=== PATIENT | female | born 1945 | race African-American/Black ===

== ENCOUNTER 2019-01-04 10:28 | Inpatient (IN) | payer OTHER ==
[~2019-01-04] VITALS: Ht 160 cm; Wt 61.0 kg
[2019-01-04] MEDS ORDERED: CEFEPIME 2GM/50 ML (PMX) 50 ML IVPB STA (10:40)
[2019-01-04] MEDS ORDERED: VANCOMYCIN 1 GM (PMX) 250 ML IVPB ONE (11:00)
[2019-01-04] MEDS ORDERED: PRED20TA PO (11:34)
[2019-01-04] MEDS ORDERED: CITA20TA8 PO (11:34)
[2019-01-04] MEDS ORDERED: AMLO-147 PO (11:35)
[2019-01-04] MEDS ORDERED: TRAZ-111 PO (11:36)
[2019-01-04] MEDS ORDERED: ASPI-817 PO (11:36)
[2019-01-04] MEDS ORDERED: LOSA25TA12 PO (11:36)
[2019-01-04] MEDS ORDERED: RISP0.253 PO (11:37)
[2019-01-04] MEDS ORDERED: ATOR-2 PO (11:37)
[2019-01-04] MEDS ORDERED: CARV12.579 PO (11:38)
[2019-01-04] MEDS ORDERED: SENN-120 PO (11:39)
[2019-01-04] MEDS ORDERED: BISA-57 PO (11:40)
[2019-01-04] MEDS ORDERED: GUAI-637 PO (11:41)
[2019-01-04] MEDS ORDERED: HYDR-4011 PO (11:42)
[2019-01-04] MEDS ORDERED: IPRA3AMP29 INHALATION (11:45)
[2019-01-04] MEDS ORDERED: ONDA4TAB13 PO (11:46)
[2019-01-04] MEDS ORDERED: BACL10TA PO (11:46)
[2019-01-04] MEDS ORDERED: PANT40TA4 PO (11:47)
[2019-01-04] MEDS ORDERED: GABA300C16 PO (11:47)
[2019-01-04] MEDS ORDERED: FLUT12HF2 IH (11:49)
[2019-01-04] MEDS ORDERED: APIX2.5T PO (11:50)
[2019-01-04] MEDS ORDERED: ACET325T45 PO (11:52)
[2019-01-04] MEDS ORDERED: INSU100I12 SQ (11:56)
[2019-01-04] MEDS ORDERED: LIDOCAINE 1% (MPF) 5 ML VIAL SC ONE (12:00)
[2019-01-04] MEDS ORDERED: ACETAMINOPHEN 325 MG TAB PO PRN ×3 (13:30→15:00)
[2019-01-04] MEDS ORDERED: ONDANSETRON 4 MG INJ IV PRN ×2 (13:30→15:00)
[2019-01-04] MEDS ORDERED: BISACODYL (EC) 5 MG TAB PO PRN (14:00)
[2019-01-04] MEDS ORDERED: ONDANSETRON 4 MG TAB PO PRN (14:00)
[2019-01-04] MEDS ORDERED: NON-FORMULARY/PATIENT OWN MED (Salmeterol Xinaf-Fluticasone* (Advair HFA*) 2 INH) IH PRN (14:00)
[2019-01-04] MEDS ORDERED: ALBUTEROL/IPRATROPIUM (NEB) 3 ML AMP INH PRN (14:00)
[2019-01-04] MEDS ORDERED: LEVOFLOXACIN 750MG/D5W (PMX) 150 ML IVPB SCH (14:30)
--- NOTE | 2019-01-04 14:54 | HP ---
Date/Time of Note Date/Time of Note DATE: 01/04/19 TIME: 14:43 Assessment/Plan VTE Prophylaxis SCD applied (from Nsg): Yes Pharmacological prophylaxis: apixaban Lines/Catheters IV Catheter Type (from Nrsg): Saline Lock Assessment/Plan Hospital Course Assessment and plan 1. Multifocal pneumonia. Start antibiotic. O2 PRN. Will resume patient's breathing treatment regimen from home. Will adjust as needed. 2. Suspect history of A. fib with pacemaker. Continue to monitor. Placed back on Eliquis. Patient beta-love resumed. f/u echo 3. COPD. Will provide breathing treatments. Continue O2. Titrate down as tolerated. 4. Essential hypertension. Will resume antihypertensives. Will adjust as needed. 5. History of depression. Continue on Celexa 6. History of paranoid disorder. Continue on risperidone 7. Hyperlipidemia. Follow-up on CHD panel. Continue on atorvastatin. 8. Suspect history of CAD. Resume on statin and ASA. 9. suspect history of GERD. Continue Protonix. Discussed POC with Dr. Strong Result Diagram: 01/04/19 1101 01/04/19 1101 Results 24hrs Laboratory Tests Test 01/04/19 11:01 01/04/19 11:06 01/04/19 12:35 White Blood Count 6.9 Red Blood Count 3.29 L Hemoglobin 10.0 L Hematocrit 32.6 L Mean Corpuscular Volume 99.1 Mean Corpuscular Hemoglobin 30.4 Mean Corpuscular Hemoglobin Concent 30.7 L Red Cell Distribution Width 16.8 H Platelet Count 152 Mean Platelet Volume 10.9 H Immature Granulocytes % 0.300 Neutrophils % 74.6 Lymphocytes % 7.9 L Monocytes % 13.9 H Eosinophils % 2.9 Basophils % 0.4 Nucleated Red Blood Cells % 0.0 Immature Granulocytes # 0.020 Neutrophils # 5.1 Lymphocytes # 0.5 L Monocytes # 1.0 H Eosinophils # 0.2 Basophils # 0.0 Nucleated Red Blood Cells # 0.0 Prothrombin Time 13.7 Prothrombin Time Ratio 1.1 INR International Normalized Ratio 1.04 Activated Partial Thromboplast Time 27.4 Sodium Level 136 Potassium Level 5.1 Chloride Level 101 Carbon Dioxide Level 31 Anion Gap 4 L Blood Urea Nitrogen 23 H Creatinine 0.96 Est Glomerular Filtrat Rate mL/min Glucose Level 97 Calcium Level 9.0 Total Bilirubin 0.6 Direct Bilirubin 0.00 Indirect Bilirubin 0.6 Aspartate Amino Transf (AST/SGOT) 33 Alanine Aminotransferase (ALT/SGPT) 36 Alkaline Phosphatase 63 Troponin I 0.059 Total Protein 6.0 L Albumin 3.4 Globulin 2.60 Albumin/Globulin Ratio 1.30 POC Venous Lactate 0.7 Urine Color YELLOW Urine Clarity HAZY Urine pH 7 Urine Specific [place] 1.005 Urine Ketones NEGATIVE Urine Nitrite NEGATIVE Urine Bilirubin NEGATIVE Urine Urobilinogen NEGATIVE Urine Leukocyte Esterase NEGATIVE Urine Squamous Epithelial Cells RARE Urine Hemoglobin NEGATIVE Urine Glucose NEGATIVE Urine Total Protein TRACE HPI/ROS Admit Date/Time Admit Date/Time Hx of Present Illness This is a 73-year-old female with reported history of COPD, CKD, A. fib, pacemaker, TIA, depression, paranoid personality disorder, cigarette smoking history, hypertension, hyperlipidemia, who came to [facility] from [facility] due to insurance issues for multifocal pneumonia. Patient states she resides at a longterm facility and started to experience shortness of breath with associated cough for 3 days duration. She is not aware she was started on any antibiotics prior to hospital admission. She denies any chest pain or dysuria or any other associated symptoms besides reported cough and shortness of breath. She was brought to the hospital to the aformentiond issues. She was noted with a white count of 6.9. And she was afebrile. Chest imaging was done that showed patchy multifocal right greater than left infiltrates concerning for multifocal pneumonia. There is also seen some mild interstitial edema suggestive of cardiopulmonary congestion with a small left pleural effusion. Currently she denies any pain. She is alert somewhat forgetful. No other specific complaints at this time. We will evaluate her for the aformentiond issues. ROS 12 point review of systems obtained and entirely negative except mentioned in t he history of present illness PMH/Family/Social Past Medical History Medical/surgical history 1. COPD 2. CKD 3. A. fib with pacemaker 4. Suspect history of TIA 5. History of depression 6. Paranoid personality disorder 7. Hypertension 8. Hyperlipidemia 9. Self-reported history of stents in the legs 10. Hysterectomy Medications Current Medications Acetaminophen (Tylenol Tab) 650 mg Q6H PRN PO MILD PAIN LEVEL 1-3; Start 01/04/19 at 14:00 Amlodipine Besylate (Norvasc) 10 mg DAILY PO ; Start 01/05/19 at 09:00 Aspirin (Halfprin) 81 mg DAILY PO ; Start 01/05/19 at 09:00 Atorvastatin Calcium (Lipitor) 80 mg QHS PO ; Start 01/04/19 at 21:00 Baclofen (Lioresal) 10 mg TID PO ; Start 01/04/19 at 21:00 Bisacodyl (Dulcolax) 10 mg DAILY PRN PO CONSTIPATION; Start 01/04/19 at 14:00 Carvedilol (Coreg) 12.5 mg BID PO ; Start 01/04/19 at 21:00 Citalopram Hydrobromide (Celexa) 20 mg DAILY PO ; Start 01/05/19 at 09:00 Gabapentin (Neurontin) 300 mg TID PO ; Start 01/04/19 at 21:00 Albuterol/ Ipratropium (Duoneb) 3 ml Q6H RESP THERAPY PRN INH COPD/COUPH/SOB; Start 01/04/19 at 14:00 Losartan Potassium (Cozaar) 25 mg DAILY PO ; Start 01/05/19 at 09:00 Ondansetron HCl (Zofran Tab) 4 mg Q8H PRN PO NAUSEA AND/OR VOMITING; Start 01/04/19 at 14:00 Pantoprazole (Protonix Tab) 40 mg AC BREAKFAST PO ; Start 01/05/19 at 07:00 Senna (Senokot) 2 tab QPM PO ; Start 01/04/19 at 21:00 Trazodone HCl (Desyrel) 50 mg QHS PO ; Start 01/04/19 at 21:00 Miscellaneous Information 2 inh BID PRN IH COPD; Start 01/04/19 at 14:00; Status UNV Levofloxacin/ Dextrose 150 ml @ 100 mls/hr Q48H IVPB ; Start 01/04/19 at 14:30 Coded Allergies: No Known Allergy (Unverified , 01/04/19) Family History Significant Family History: other (Patient denies any history at this time) Social History Alcohol Use: none Smoking Status: Former smoker Drug Use: none Exam/Review of Systems Vital Signs Vitals Vital Signs Date Temp Pulse Resp B/P (MAP) Pulse Ox O2 O2 Flow FiO2 Time Delivery Rate 01/04/19 Nasal 2 11:10 Cannula 01/04/19 98.9 60 20 148/80 97 10:40 (102) Exam Constitutional: alert Psych: nl mood/affect Head: normocephalic Eyes: nl conjunctiva Neck: supple, non-tender Respiratory: congested cough Cardiovascular: other (pacemaker in place, regular rate ) Gastrointestinal: soft, non-tender Neurological: nl speech Skin: other (decubitus ulcer sacral area ) DAVID CHADWICK NP Jan 04, 2019 14:53
--- NOTE | 2019-01-04 14:56 | ERD ---
ER Documentation Chief Complaint Chief Complaint SOB SINCE LAST NIGHT. HX COPD AND CHF HPI Patient is a 73-year-old female with coronary disease, COPD, and hypertension who presents with shortness of breath. The patient was brought in by ambulance. She says "I cannot breathe". Symptoms started 3 days ago. She has fevers and cough which are worsening. She has previously been on antibiotics and was told "I have pneumonia". She came from a facility. Her primary doctor is Dr. Jacky Rushing. ROS All systems reviewed and are negative except as per history of present illness. Medications Home Meds Reported Medications Insulin Lispro (Humalog Kwikpen U-100) 100 Unit/1 Ml Insuln.pen, 0 SQ SLIDING SCALE, EA GIVE 5-10 MIN AC MEALS: IF BS 151-200=3 UNITS,201-250=6 UNITS, 251-300=8 UNITS,301-350=11 UNITS,351-399=13 UNITS-IF EQUAL OR GREATER THAN 400=15 UNITS: NOTIFY MD IF BELOW 60 OR ABOVE 400. 01/04/19 Acetaminophen* (Acetaminophen*) 325 Mg Tablet, 650 MG PO Q6H PRN for MILD PAIN LEVEL 1-3, #30 TAB AND FOR TEMP>101F 01/04/19 Apixaban* (Eliquis*) 2.5 Mg Tablet, 1.25 MG PO BID, TAB 01/04/19 Salmeterol Xinaf-Fluticasone* (Advair HFA*) 115/21 Aerosol Inhaler, 2 INH IH BID PRN for COPD, #1 INHALER 01/04/19 Pantoprazole* (Pantoprazole*) 40 Mg Tablet.dr, 40 MG PO AC BREAKFAST, TAB 01/04/19 Gabapentin* (Gabapentin*) 300 Mg Capsule, 300 MG PO TID, #90 CAP 01/04/19 Baclofen* (Baclofen*) 10 Mg Tablet, 10 MG PO TID, TAB 01/04/19 Ondansetron Hcl* (Zofran*) 4 Mg Tab, 4 MG PO Q8H PRN for NAUSEA AND OR VOMITING, TAB 01/04/19 Ipratropium-Albuterol (Ipratropium-Albuterol) 0.5-3 Mg/3 Ml Ampul.neb, 3 ML INHALATION Q6 PRN for COPD, #30 VIAL OR Q4H NEEDED 01/04/19 Hydrocodone/Acetaminophen ([place] 5-325 Tablet) 1 Each Tablet, 1 EACH PO Q4H PRN for MODERATE PAIN LEVEL 4-6, TAB 01/04/19 Guaifenesin* (Robitussin*) 100 Mg/5 Ml Syrup, 10 ML PO Q4H PRN for COUGH, ML 01/04/19 Bisacodyl* (Dulcolax*) 5 Mg Tablet.dr, 10 MG PO DAILY PRN for CONSTIPATION, TAB 01/04/19 Sennosides* (Senna Lax*) 8.6 Mg Tablet, 2 TAB PO QPM, TAB 01/04/19 Carvedilol* (Carvedilol*) 12.5 Mg Tablet, 12.5 MG PO BID, #60 TAB 01/04/19 Atorvastatin* (Atorvastatin*) 80 Mg Tablet, 80 MG PO QHS, #30 TAB 01/04/19 Risperidone* (Risperidone*) 0.25 Mg Tablet, 0.25 MG PO Q9PM, TAB 01/04/19 Trazodone Hcl* (Trazodone Hcl*) 50 Mg Tablet, 50 MG PO QHS, #30 TAB 01/04/19 Aspirin* (Aspirin* EC) 81 Mg Tablet.dr, 81 MG PO DAILY, TAB 01/04/19 Losartan Potassium* (Losartan Potassium*) 25 Mg Tablet, 25 MG PO DAILY, TAB HOLD FOR SBP LESS THAN 110 01/04/19 Amlodipine Besylate* (Amlodipine Besylate*) 10 Mg Tablet, 10 MG PO DAILY, #30 T AB 01/04/19 Citalopram Hydrobromide* (Citalopram Hydrobromide*) 20 Mg Tablet, 20 MG PO DAILY, #30 TAB 01/04/19 Prednisone* (Prednisone*) 20 Mg Tab, 20 MG PO DAILY, TAB 01/04/19 Allergies Allergies: Coded Allergies: No Known Allergy (Unverified , 01/04/19) PMhx/Soc History of Surgery: No Anesthesia Reaction: No Hx Neurological Disorder: Yes (CVA) Hx Respiratory Disorders: Yes (COPD) Hx Cardiac Disorders: Yes (PM, HTN, A FIB, CAD) Hx Psychiatric Problems: Yes (PARANOID PERSONALITY DISORDER) Hx Alcohol Use: No Hx Substance Use: No Hx Tobacco Use: Yes Smoking Status: Former smoker FmHx Family History: diabetes Physical Exam Vitals Vital Signs Date Temp Pulse Resp B/P (MAP) Pulse Ox O2 O2 Flow FiO2 Time Delivery Rate 01/04/19 Nasal 2 11:10 Cannula 01/04/19 Nasal 2.0 11:10 Cannula 01/04/19 98.9 60 20 148/80 97 Nasal 10:40 (102) Cannula 01/04/19 98.6 60 26 128/76 97 10:36 (93) Physical Exam Const: Shortness of breath and is unable to complete full sentences Head: Atraumatic Eyes: Normal Conjunctiva ENT: Normal External Ears, Nose and Mouth. Neck: Full range of motion. No meningismus. Resp: Decreased breath sounds bilaterally Cardio: Regular rate and rhythm, no murmurs Abd: Soft, non tender, non distended. Normal bowel sounds Skin: No petechiae or rashes Back: No midline or flank tenderness Ext: No cyanosis, or edema Neur: Awake and alert Psych: Normal Mood and Affect Result Diagram: 01/04/19 1101 01/04/19 1101 Results 24 hrs Laboratory Tests Test 01/04/19 11:01 01/04/19 11:06 01/04/19 12:35 White Blood Count 6.9 10^3/ul Red Blood Count 3.29 10^6/ul Hemoglobin 10.0 g/dl Hematocrit 32.6 % Mean Corpuscular Volume 99.1 fl Mean Corpuscular Hemoglobin 30.4 pg Mean Corpuscular 30.7 g/dl Hemoglobin Concent Red Cell Distribution Width 16.8 % Platelet Count 152 10^3/UL Mean Platelet Volume 10.9 fl Immature Granulocytes % 0.300 % Neutrophils % 74.6 % Lymphocytes % 7.9 % Monocytes % 13.9 % Eosinophils % 2.9 % Basophils % 0.4 % Nucleated Red Blood Cells % 0.0 /100WBC Immature Granulocytes # 0.020 10^3/ul Neutrophils # 5.1 10^3/ul Lymphocytes # 0.5 10^3/ul Monocytes # 1.0 10^3/ul Eosinophils # 0.2 10^3/ul Basophils # 0.0 10^3/ul Nucleated Red Blood Cells # 0.0 10^3/ul Prothrombin Time 13.7 Sec Prothrombin Time Ratio 1.1 INR International 1.04 Normalized Ratio Activated Partial Thromboplast 27.4 Sec Time Sodium Level 136 mmol/L Potassium Level 5.1 mmol/L Chloride Level 101 mmol/L Carbon Dioxide Level 31 mmol/L Anion Gap 4 Blood Urea Nitrogen 23 mg/dl Creatinine 0.96 mg/dl Est Glomerular Filtrat mL/min Rate mL/min Glucose Level 97 mg/dl Calcium Level 9.0 mg/dl Total Bilirubin 0.6 mg/dl Direct Bilirubin 0.00 mg/dl Indirect Bilirubin 0.6 mg/dl Aspartate Amino Transf (AST/SGOT) 33 IU/L Alanine 36 IU/L Aminotransferase (ALT/SGPT) Alkaline Phosphatase 63 IU/L Troponin I 0.059 ng/ml Total Protein 6.0 g/dl Albumin 3.4 g/dl Globulin 2.60 g/dl Albumin/Globulin Ratio 1.30 POC Venous Lactate 0.7 mmol/L Urine Color YELLOW Urine Clarity HAZY Urine pH 7 Urine Specific [place] 1.005 Urine Ketones NEGATIVE mg/dL Urine Nitrite NEGATIVE mg/dL Urine Bilirubin NEGATIVE mg/dL Urine Urobilinogen NEGATIVE mg/dL Urine Leukocyte Esterase NEGATIVE Samuel/ul Urine Squamous Epithelial Cells RARE /HPF Urine Hemoglobin NEGATIVE mg/dL Urine Glucose NEGATIVE mg/dL Urine Total Protein TRACE mg/dl Current Medications Medications Dose Sig/Fritz Start Time Status Last (Trade) Ordered Route PRN Stop Time Admin Dose Reason Admin Cefepime HCl 50 ml @ ONCE STAT 01/04/19 DC 01/04/19 100 mls/hr IVPB 10:40 01/04/19 12:42 11:09 Vancomycin 250 ml @ ONCE ONCE 01/04/19 DC 01/04/19 HCl 125 mls/hr IVPB 11:00 01/04/19 13:14 12:59 Lidocaine 5 ml ONCE ONCE 01/04/19 DC (Xylocaine SC 12:00 01/04/19 1% (Mpf)) 12:01 Ondansetron 4 mg BRIDGE ORDER 01/04/19 DC HCl (Zofran PRN IV 13:30 01/04/19 Inj) NAUSEA/VOMITI 13:58 NG 650 mg ER BRIDGE 01/04/19 DC Acetaminophen PRN PO 13:30 01/04/19 (Tylenol .MILD PAIN 13:58 Tab) 1-3 OR TEMP 650 mg Q6H PRN 01/04/19 Acetaminophen PO MILD PAIN 14:00 (Tylenol LEVEL 1-3 Tab) Amlodipine 10 mg DAILY PO 01/05/19 Besylate 09:00 (Norvasc) Aspirin 81 mg DAILY PO 01/05/19 (Halfprin) 09:00 80 mg QHS PO 01/04/19 Atorvastatin 21:00 Calcium (Lipitor) Baclofen 10 mg TID PO 01/04/19 (Lioresal) 21:00 Bisacodyl 10 mg DAILY PRN 01/04/19 (Dulcolax) PO 14:00 CONSTIPATION Carvedilol 12.5 mg BID PO 01/04/19 (Coreg) 21:00 Citalopram 20 mg DAILY PO 01/05/19 Hydrobromide 09:00 (Celexa) Gabapentin 300 mg TID PO 01/04/19 (Neurontin) 21:00 Albuterol/ 3 ml Q6H RESP 01/04/19 Ipratropium THERAPY PRN 14:00 (Duoneb) INH COPD/COUPH/SO B Losartan 25 mg DAILY PO 01/05/19 Potassium 09:00 (Cozaar) Ondansetron 4 mg Q8H PRN 01/04/19 HCl (Zofran PO NAUSEA 14:00 Tab) AND/OR VOMITING 40 mg AC 01/05/19 Pantoprazole BREAKFAST 07:00 (Protonix PO Tab) Senna 2 tab QPM PO 01/04/19 (Senokot) 21:00 Trazodone 50 mg QHS PO 01/04/19 HCl 21:00 (Desyrel) 2 inh BID PRN 01/04/19 UNV Miscellaneous IH COPD 14:00 Information 150 ml @ DAILY IVPB 01/05/19 UNV Levofloxacin/ 100 mls/hr 09:00 Dextrose 150 ml @ Q48H IVPB 01/04/19 Levofloxacin/ 100 mls/hr 14:30 Dextrose Apixaban 2.5 mg BID PO 01/04/19 UNV (Eliquis) 21:00 Procedures/MDM EKG read by me: Rate/Rhythm: Paced rhythm at a normal rate Intervals: Normal Impression: Paced rhythm with negative Sgarbossa criteria X-ray shows multifocal pneumonia per radiology. Patient is a 73-year-old female with multiple comorbidities who presents with multifocal pneumonia. The patient had full work-up performed. I doubt sepsis at this time. The patient was given broad-spectrum antibiotics. PICC line was ordered for IV access as the patient had difficult to obtain IV access. The patient will be admitted to the care of the panel team to a medical surgical bed. I doubt acute coronary syndrome, pneumothorax, or pulmonary embolism. Departure Diagnosis: Primary Impression: PNA (pneumonia) Pneumonia type: due to unspecified organism Laterality: unspecified laterality Lung location: unspecified part of lung Qualified Codes: J18.9 - Pneumonia, unspecified organism Additional Impression: Shortness of breath Condition: Fair RACHEAL YANES MD Jan 04, 2019 14:56
[2019-01-04] MEDS ORDERED: NACL 0.9% 3 ML SYG IV SCH (15:00)
[2019-01-04] MEDS ORDERED: MAGNESIUM HYDROXIDE 30ML CUP PO PRN (15:00)
[2019-01-04] MEDS ORDERED: ACETAMINOPHEN 650 MG SUPP PR PRN (15:00)
[2019-01-04] MEDS ORDERED: DOCUSATE SODIUM 100 MG CAP PO PRN (15:00)
[2019-01-04] MEDS ORDERED: BISACODYL 10 MG SUPP PR PRN (15:00)
[2019-01-04] MEDS ORDERED: hydrALAzine 20 MG INJ IV ONE (16:00)
[2019-01-04 16:45] VITALS: BP 168/74; PULSE 72; RESP 16
[2019-01-04] MEDS: HYDROCODONE/APAP (5/325) TAB PO PRN (17:22)
[2019-01-04 17:31] VITALS: Ht 160 cm; Wt 61.0 kg
[2019-01-04] MEDS: ALBUTEROL/IPRATROPIUM (NEB) 3 ML AMP HHN PRN (17:39)
[2019-01-04] MEDS: LEVOFLOXACIN 750MG/D5W (PMX) 150 ML IVPB SCH (18:37)
[2019-01-04] MEDS: morphine 2 MG INJ IV PRN (19:58)
[2019-01-04 20:00] VITALS: BP 108/82; PULSE 64; RESP 18
[2019-01-04] MEDS: BUDESONIDE (NEB) 0.5MG/2ML AMP INH SCH (20:39)
[2019-01-04] MEDS: ARFORMOTEROL TARTRATE 15MCG/2 ML AMP INH SCH (20:39)
[2019-01-04] MEDS: SENNA TAB PO SCH (21:00)
[2019-01-04] MEDS: traZODone 50 MG TAB PO SCH (21:29)
[2019-01-04] MEDS: ATORVASTATIN 80 MG TAB PO SCH (21:30)
[2019-01-04] MEDS: APIXABAN 5 MG TABLET PO SCH (21:30)
[2019-01-04] MEDS: BACLOFEN 10 MG TAB PO SCH (21:30)
[2019-01-04] MEDS: GABAPENTIN 300 MG CAP PO SCH (21:30)
[2019-01-04] MEDS ORDERED: DIPHENHYDRAMINE 25 MG CAP PO ONE (23:00)
[2019-01-05] VITALS (7 sets, daily range): BP systolic 117–172; BP diastolic 60–79; PULSE 56–71; RESP 18–20
[2019-01-05] MEDS ORDERED: GUAIFENESIN 20 MG/ML 5ML CUP PO PRN (00:30)
[2019-01-05] MEDS: ALBUTEROL/IPRATROPIUM (NEB) 3 ML AMP HHN PRN (01:33)
[2019-01-05] MEDS: PANTOPRAZOLE (EC) 40 MG TAB PO SCH (06:26)
[2019-01-05] MEDS: HYDROCODONE/APAP (5/325) TAB PO PRN ×2 (06:29→12:29)
[2019-01-05] MEDS: AMLODIPINE 10 MG TAB PO SCH (08:31)
[2019-01-05] MEDS: APIXABAN 5 MG TABLET PO SCH ×2 (08:32→21:43)
[2019-01-05] MEDS: GABAPENTIN 300 MG CAP PO SCH ×3 (08:32→21:47)
[2019-01-05] MEDS: CITALOPRAM 20 MG TAB PO SCH (08:33)
[2019-01-05] MEDS: BACLOFEN 10 MG TAB PO SCH ×3 (08:34→21:44)
[2019-01-05] MEDS: LOSARTAN 25 MG TAB PO SCH (08:34)
[2019-01-05] MEDS: ASPIRIN (EC) 81 MG TAB PO SCH (08:34)
[2019-01-05] MEDS: morphine 2 MG INJ IV PRN (08:56)
[2019-01-05] MEDS: ARFORMOTEROL TARTRATE 15MCG/2 ML AMP INH SCH ×2 (09:00→21:00)
[2019-01-05] MEDS ORDERED: LEVOFLOXACIN 750MG/D5W (PMX) 150 ML IVPB SCH (09:00)
[2019-01-05] MEDS: BUDESONIDE (NEB) 0.5MG/2ML AMP INH SCH ×2 (09:10→21:00)
[2019-01-05] MEDS ORDERED: SODIUM POLYSTYRENE 15 GM KIT (POWDER + SORBITOL) PO ONE (13:30)
--- NOTE | 2019-01-05 14:15 | RADRPT ---
Echocardiogram Report Patient Name: JEAN PIERRE DINEROPatient ID: [id number] : 1945 (73y 6m)Study Date: 01/05/2019 7:14:27 AM Gender: FAccession #: [id number] Tech: Peyton Wong [facility] Location: [id number] Ref.Physician: DAVID CHADWICK Height(Cm): BSA: Weight(Kg): Quality: AdequateOrder Physician: DAVID CHADWICK Account #: Procedures: Echocardiographic Report: Transthoracic echocardiogram with complete 2D, M-Mode, and doppler examination. Indications: Congestive Heart Failure. Measurements: 2D/M Mode Doppler Measurement Value Normal Range Measurement Value Normal Range LVIDd 2D 3.2 [ 3.8 - 5.2 ] cm AV Peak [place] 1.8 [ 100.0 - 170.0 ] cm/sec LVIDs 2D 1.4 [ 2.2 - 3.5 ] cm AV Peak PG 12.0 [ 2.0 - 9.0 ] mmHg LVPWd 2D 2.2 [ 0.6 - 0.9 ] cm LVOT Peak [place] 1.5 [ 70.0 - 110.0 ] cm/sec IVSd 2D 1.7 [ 0.6 - 0.9 ] cm LVOT Peak PG 9.0 [ 2.0 - 6.0 ] mmHg AoR Diam 2D 2.8 [ 2.3 - 3.1 ] cm MV E Peak [place] 1.0 [ 60.0 - 130.0 ] cm/sec EDV 2D 41.9 [ 46.0 - 106.0 ] ml MV A Peak [place] 1.3 [ 100.0 - 120.0 ] cm/sec ESV 2D 4.7 [ 14.0 - 42.0 ] ml MV E/A 0.7 [ 0.8 - 1.5 ] ratio EF 2D 88.8 [ 54.0 - 74.0 ] percent MV Decel Time 366 [ 104 - 258 ] msec LA Dimen 2D 3.8 [ 2.7 - 3.8 ] cm Lat E` [place] 0.0 [ 10.0 - 15.0 ] cm/sec Lateral E/E` 20.3 [ 1.0 - 2.0 ] ratio MV E/A 0.7 [ 0.8 - 1.5 ] ratio TR Peak [place] 4.3 [ 100.0 - 280.0 ] cm/sec TR Peak PG 74.0 mmHg RVSP 82.0 [ 10.0 - 36.0 ] mmHg RA Pressure 8.0 mmHg Findings: Left Ventricle: Hyperdynamic left ventricular systolic function. Severe concentric left ventricular hypertrophy. Reduced left ventricular cavity size. Ejection fraction is visually estimated at >65 %. Tissue Doppler/Mitral Doppler indices are consistent with impaired relaxation (Stage I diastolic dysfunction). Right Ventricle: Normal right ventricular size. Normal right ventricular systolic function. Linear artifact in right ventricle suggestive of catheter, pacer lead, or ICD lead. Left Atrium: The left atrium is normal in size. Right Atrium: The right atrium is normal in size. Mitral Valve: Moderate mitral leaflet calcification. Moderate mitral annular calcification. Trace mitral regurgitation. Aortic Valve: Normal appearance of the aortic valve. No significant aortic stenosis or insufficiency. Tricuspid Valve: Normal appearance of the tricuspid valve. The estimated Peak RVSP is 82 mmHg. There is mild to moderate tricuspid regurgitation. Pulmonic Valve: Normal pulmonic valve appearance. Pericardium: Small pericardial effusion. Aorta: Normal aortic root. IVC: Normal size and no respiratory collapse consistent with elevated right atrial pressure. Conclusions: Hyperdynamic left ventricular systolic function. Severe concentric left ventricular hypertrophy. Reduced left ventricular cavity size. Ejection fraction is visually estimated at 60 %. Tissue Doppler/Mitral Doppler indices are consistent with impaired relaxation (Stage I diastolic dysfunction). Moderate mitral leaflet calcification. Moderate mitral annular calcification. Trace mitral regurgitation. Normal appearance of the tricuspid valve. The estimated Peak RVSP is 82 mmHg. There is mild to moderate tricuspid regurgitation. Electronically Signed By: Romie Baeza 2019-01-05 14:14:31 PDT
[2019-01-05] MEDS: BALSAM PERU/CASTOR OIL 60 GM TUBE TOP SCH (14:58)
--- NOTE | 2019-01-05 15:34 | PN ---
Date/Time of Note Date/Time of Note DATE: 01/05/19 TIME: 15:30 Assessment/Plan VTE Prophylaxis Risk score (from Ns)>0 risk: 5 SCD applied (from Ns): Yes Pharmacological prophylaxis: apixaban Lines/Catheters IV Catheter Type (from Nrs): Saline Lock Urinary Cath still in place: No Assessment/Plan Hospital Course Assessment and plan 1. Multifocal pneumonia. - continue antibiotic. - O2 PRN. - continue patient's breathing treatment regimen from home. Will adjust as needed. 2. Suspect history of A. fib with pacemaker. - Continue to monitor. - continue on Eliquis. - Patient beta-love resumed. f/u echo 3. COPD. - provide breathing treatments. - Continue O2. Titrate down as tolerated. 4. Essential hypertension. - continue antihypertensives. Will adjust as needed. 5. History of depression. - Continue on Celexa 6. History of paranoid disorder. - Continue on risperidone 7. Hyperlipidemia. - Continue on atorvastatin. 8. Suspect history of CAD. - continue on statin and ASA. 9. suspect history of GERD. - Continue Protonix. 10. Hyperkalemia - kayexalate prn Dispo/Plan: monitor electrolytes. continue with PT. check CXR in AM. continue inhouse monitoring Discussed POC with Dr. Howard Result Diagram: 01/04/19 1101 01/05/19 0541 Results 24hrs Laboratory Tests Test 01/04/19 17:33 01/04/19 21:42 01/05/19 05:41 Lactic Acid Level 1.0 0.9 Sodium Level 137 Potassium Level 5.6 H Chloride Level 106 Carbon Dioxide Level 26 Anion Gap 5 Blood Urea Nitrogen 29 H Creatinine 0.89 Est Glomerular Filtrat Rate mL/min Glucose Level 84 Hemoglobin A1c 5.7 Calcium Level 8.8 Phosphorus Level 4.6 Magnesium Level 2.3 Total Bilirubin 0.5 Direct Bilirubin 0.00 Indirect Bilirubin 0.5 Aspartate Amino Transf (AST/SGOT) 36 Alanine Aminotransferase (ALT/SGPT) 33 Alkaline Phosphatase 57 Total Protein 5.4 L Albumin 3.0 L Globulin 2.40 Albumin/Globulin Ratio 1.25 Triglycerides Level 55 Cholesterol Level 143 LDL Cholesterol, Calculated 72 HDL Cholesterol 60 Cholesterol/HDL Ratio 2.3 Thyroid Stimulating Hormone (TSH) 0.926 Free Thyroxine Index 2.46 Thyroxine (T4) 6.4 Triiodothyronine (T3) Uptake 38.4 Subjective 24 Hr Interval Summary Free Text/Dictation reports better breathing today Exam/Review of Systems Exam Vitals Vital Signs Date Temp Pulse Resp B/P (MAP) Pulse Ox O2 O2 Flow FiO2 Time Delivery Rate 01/05/19 124/67 10:13 (86) 01/05/19 84 20 92 Nasal 2.0 09:18 Cannula 01/05/19 97.9 07:44 Intake and Output 01/04/19 01/04/19 01/05/19 1515:00 23:00 07:00 IntakeIntake Total 450 ml BalanceBalance 450 ml Exam Constitutional: alert Psych: nl mood/affect Head: normocephalic Eyes: nl conjunctiva Neck: supple, non-tender Respiratory: congested cough Cardiovascular: other (pacemaker in place, regular rate ) Gastrointestinal: soft, non-tender Neurological: nl speech Skin: other (decubitus ulcer sacral area ) Results Results 24hrs Laboratory Tests Test 01/04/19 17:33 01/04/19 21:42 01/05/19 05:41 Lactic Acid Level 1.0 0.9 Sodium Level 137 Potassium Level 5.6 H Chloride Level 106 Carbon Dioxide Level 26 Anion Gap 5 Blood Urea Nitrogen 29 H Creatinine 0.89 Est Glomerular Filtrat Rate mL/min Glucose Level 84 Hemoglobin A1c 5.7 Calcium Level 8.8 Phosphorus Level 4.6 Magnesium Level 2.3 Total Bilirubin 0.5 Direct Bilirubin 0.00 Indirect Bilirubin 0.5 Aspartate Amino Transf (AST/SGOT) 36 Alanine Aminotransferase (ALT/SGPT) 33 Alkaline Phosphatase 57 Total Protein 5.4 L Albumin 3.0 L Globulin 2.40 Albumin/Globulin Ratio 1.25 Triglycerides Level 55 Cholesterol Level 143 LDL Cholesterol, Calculated 72 HDL Cholesterol 60 Cholesterol/HDL Ratio 2.3 Thyroid Stimulating Hormone (TSH) 0.926 Free Thyroxine Index 2.46 Thyroxine (T4) 6.4 Triiodothyronine (T3) Uptake 38.4 Medications Medication Current Medications Acetaminophen (Tylenol Tab) 650 mg Q6H PRN PO MILD PAIN LEVEL 1-3; Start 01/04/19 at 14:00 Amlodipine Besylate (Norvasc) 10 mg DAILY PO Last administered on 01/05/19at 08:31; Admin Dose 10 MG; Start 01/05/19 at 09:00 Aspirin (Halfprin) 81 mg DAILY PO Last administered on 01/05/19 08:34; Admin Dose 81 MG; Start 01/05/19 at 09:00 Atorvastatin Calcium (Lipitor) 80 mg QHS PO Last administered on 01/04/19 21:30; Admin Dose 80 MG; Start 01/04/19 at 21:00 Baclofen (Lioresal) 10 mg TID PO Last administered on 01/05/19 12:18; Admin Dose 10 MG; Start 01/04/19 at 21:00 Bisacodyl (Dulcolax) 10 mg DAILY PRN PO CONSTIPATION; Start 01/04/19 at 14:00 Carvedilol (Coreg) 12.5 mg BID PO Last administered on 01/05/19 08:33; Admin Dose 12.5 MG; Start 01/04/19 at 21:00 Citalopram Hydrobromide (Celexa) 20 mg DAILY PO Last administered on 01/05/19 08:33; Admin Dose 20 MG; Start 01/05/19 at 09:00 Gabapentin (Neurontin) 300 mg TID PO Last administered on 01/05/19 12:19; Admin Dose 300 MG; Start 01/04/19 at 21:00 Albuterol/ Ipratropium (Duoneb) 3 ml Q6H RESP THERAPY PRN INH COPD/COUPH/SOB; Start 01/04/19 at 14:00 Losartan Potassium (Cozaar) 25 mg DAILY PO Last administered on 01/05/19 08:34; Admin Dose 25 MG; Start 01/05/19 at 09:00 Ondansetron HCl (Zofran Tab) 4 mg Q8H PRN PO NAUSEA AND/OR VOMITING Last administered on 01/04/19 21:29; Admin Dose 4 MG; Start 01/04/19 at 14:00 Pantoprazole (Protonix Tab) 40 mg AC BREAKFAST PO Last administered on 01/05/19 06:26; Admin Dose 40 MG; Start 01/05/19 at 07:00 Senna (Senokot) 2 tab QPM PO ; Start 01/04/19 at 21:00 Trazodone HCl (Desyrel) 50 mg QHS PO Last administered on 01/04/19 21:29; Admin Dose 50 MG; Start 01/04/19 at 21:00 Apixaban (Eliquis) 2.5 mg BID PO Last administered on 01/05/19at 08:32; Admin Dose 2.5 MG; Start 01/04/19 at 21:00 Albuterol/ Ipratropium (Duoneb) 3 ml Q6H RESP THERAPY PRN HHN SHORTNESS OF BR EATH Last administered on 01/05/19at 01:33; Admin Dose 3 ML; Start 01/04/19 at 15:00 IV Flush (NS 3 ml) 3 ml PER PROTOCOL IV ; Start 01/04/19 at 15:00 Ondansetron HCl (Zofran Inj) 4 mg Q6H PRN IV NAUSEA/VOMITING; Start 01/04/19 at 15:00 Acetaminophen (Tylenol Tab) 650 mg Q6H PRN PO .PAIN 1-3 OR TEMP; Start 01/04/19 at 15:00 Acetaminophen (Tylenol Supp) 650 mg Q6H PRN [place] .PAIN 1-3 OR TEMP; Start 01/04/19 at 15:00 Acetaminophen/ Hydrocodone Bitart ([place] (5/325)) 1 tab Q6H PRN PO .MOD PAIN 4- 6 Last administered on 01/05/19at 12:29; Admin Dose 1 TAB; Start 01/04/19 at 15:00 Acetaminophen/ Hydrocodone Bitart ([place] (5/325)) 2 tab Q6H PRN PO .SEVERE PAIN 7-10; Start 01/04/19 at 15:00 Morphine Sulfate (morphine) 2 mg Q4H PRN IV .SEVERE PAIN 7-10 Last administered on 01/05/19at 08:56; Admin Dose 2 MG; Start 01/04/19 at 15:00 Docusate Sodium (Colace) 100 mg Q12H PRN PO .CONSTIPATION; Start 01/04/19 at 1 5:00 Magnesium Hydroxide (Milk Of Mag) 30 ml DAILY PRN PO .CONSTIPATION; Start 01/04/19 at 15:00 Bisacodyl (Dulcolax Supp) 10 mg DAILY PRN [place] .CONSTIPATION; Start 01/04/19 at 15:00 Arformoterol Tartrate (Brovana (Neb)) 2 ml Q12H RESP THERAPY INH Last administered on 01/04/19at 20:39; Admin Dose 2 ML; Start 01/04/19 at 20:00 Budesonide (Pulmicort (Neb)) 0.5 mg Q12H RESP THERAPY INH Last administered on 01/05/19at 09:10; Admin Dose 0.5 MG; Start 01/04/19 at 20:00 Levofloxacin/ Dextrose 150 ml @ 100 mls/hr Q48H IVPB Last administered on 01/04/19at 18:37; Admin Dose 100 MLS/HR; Start 01/04/19 at 18:30 Guaifenesin (Robitussin Liquid Cup) 200 mg Q4H PRN PO cough; Start 01/05/19 at 13:30 DAVID CHADWICK NP Jan 05, 2019 15:34
[2019-01-05] MEDS ORDERED: traMADol 50 MG TAB PO PRN (16:00)
[2019-01-05] MEDS: ATORVASTATIN 80 MG TAB PO SCH (21:44)
[2019-01-05] MEDS: SENNA TAB PO SCH (21:44)
[2019-01-05] MEDS: traZODone 50 MG TAB PO SCH (21:45)
[2019-01-06] VITALS (7 sets, daily range): BP systolic 112–171; BP diastolic 50–92; PULSE 60–75; RESP 15–18
[2019-01-06] MEDS: hydrALAzine 20 MG INJ IV PRN (03:39)
[2019-01-06] MEDS: morphine 2 MG INJ IV PRN ×2 (05:10→09:51)
[2019-01-06] MEDS: PANTOPRAZOLE (EC) 40 MG TAB PO SCH (06:13)
[2019-01-06] MEDS: BUDESONIDE (NEB) 0.5MG/2ML AMP INH SCH ×2 (08:16→20:38)
[2019-01-06] MEDS: ARFORMOTEROL TARTRATE 15MCG/2 ML AMP INH SCH ×2 (08:16→20:38)
[2019-01-06] MEDS: CITALOPRAM 20 MG TAB PO SCH (09:38)
[2019-01-06] MEDS: LOSARTAN 25 MG TAB PO SCH (09:38)
[2019-01-06] MEDS: GABAPENTIN 300 MG CAP PO SCH ×3 (09:38→21:52)
[2019-01-06] MEDS: ASPIRIN (EC) 81 MG TAB PO SCH (09:38)
[2019-01-06] MEDS: BACLOFEN 10 MG TAB PO SCH ×3 (09:39→21:52)
[2019-01-06] MEDS: AMLODIPINE 10 MG TAB PO SCH (09:39)
[2019-01-06] MEDS: APIXABAN 5 MG TABLET PO SCH ×2 (09:40→21:52)
[2019-01-06] MEDS: BALSAM PERU/CASTOR OIL 60 GM TUBE TOP SCH (09:44)
--- NOTE | 2019-01-06 12:27 | PN ---
Date/Time of Note Date/Time of Note DATE: 01/06/19 TIME: 12:20 Assessment/Plan VTE Prophylaxis Risk score (from [facility])>0 risk: 6 SCD applied (from Ns): Yes Pharmacological prophylaxis: apixaban Lines/Catheters IV Catheter [facility] (from [facility] Saline Lock Urinary Cath still in place: No Assessment/Plan Hospital Course Assessment and plan 1. Multifocal pneumonia. - continue antibiotic. - O2 PRN. - breathing tx adjusted - start CPT 2. Suspect history of A. fib with pacemaker. - Continue to monitor. - continue on Eliquis. - Patient beta-love resumed. - echo with preserved EF 3. COPD. - provide breathing treatments. - Continue O2. Titrate down as tolerated. 4. Essential hypertension. - continue antihypertensives. Will adjust as needed. 5. History of depression. - Continue on Celexa 6. History of paranoid disorder. - Continue on risperidone 7. Hyperlipidemia. - Continue on atorvastatin. 8. Suspect history of CAD. - continue on statin and ASA. 9. suspect history of GERD. - Continue Protonix. 10. Hyperkalemia - kayexalate prn Dispo/Plan: monitor electrolytes and correct as needed. pulmonary consult. Awaiting PT eval. breathing tx adjusted. monitor for improvement Discussed POC with Dr. Howard Result Diagram: 01/06/19 1153 01/05/19 1856 Results 24hrs Laboratory Tests Test 01/05/19 18:56 01/06/19 11:53 Potassium Level 5.2 H White Blood Count 7.5 Red Blood Count 3.26 L Hemoglobin 9.8 L Hematocrit 32.5 L Mean Corpuscular Volume 99.7 Mean Corpuscular Hemoglobin 30.1 Mean Corpuscular Hemoglobin Concent 30.2 L Red Cell Distribution Width 17.0 H Platelet Count 160 Mean Platelet Volume 11.0 H Immature Granulocytes % 0.500 H Neutrophils % 70.4 Lymphocytes % 7.8 L Monocytes % 16.2 H Eosinophils % 4.7 Basophils % 0.4 Nucleated Red Blood Cells % 0.0 Immature Granulocytes # 0.040 H Neutrophils # 5.3 Lymphocytes # 0.6 L Monocytes # 1.2 H Eosinophils # 0.4 Basophils # 0.0 Nucleated Red Blood Cells # 0.0 Subjective 24 Hr Interval Summary Free Text/Dictation still reports some difficulty with breathing, not worse, but little better Exam/Review of Systems Exam Vitals Vital Signs Date Temp Pulse Resp B/P (MAP) Pulse Ox O2 O2 Flow FiO2 Time Delivery Rate 01/06/19 75 15 112/50 96 09:28 (70) 01/06/19 Nasal 2.0 09:00 Cannula 01/06/19 97.7 07:32 Intake and Output 01/05/19 01/05/19 01/06/19 1515:00 23:00 07:00 IntakeIntake Total 320 ml 120 ml BalanceBalance 320 ml 120 ml Exam Constitutional: alert Psych: nl mood/affect Head: normocephalic Eyes: nl conjunctiva Neck: supple, non-tender Respiratory: congested cough, little rhonchi Cardiovascular: other (pacemaker in place, regular rate ) Gastrointestinal: soft, non-tender Neurological: nl speech Skin: other (decubitus ulcer sacral area ) Results Results 24hrs Laboratory Tests Test 01/05/19 18:56 01/06/19 11:53 Potassium Level 5.2 H White Blood Count 7.5 Red Blood Count 3.26 L Hemoglobin 9.8 L Hematocrit 32.5 L Mean Corpuscular Volume 99.7 Mean Corpuscular Hemoglobin 30.1 Mean Corpuscular Hemoglobin Concent 30.2 L Red Cell Distribution Width 17.0 H Platelet Count 160 Mean Platelet Volume 11.0 H Immature Granulocytes % 0.500 H Neutrophils % 70.4 Lymphocytes % 7.8 L Monocytes % 16.2 H Eosinophils % 4.7 Basophils % 0.4 Nucleated Red Blood Cells % 0.0 Immature Granulocytes # 0.040 H Neutrophils # 5.3 Lymphocytes # 0.6 L Monocytes # 1.2 H Eosinophils # 0.4 Basophils # 0.0 Nucleated Red Blood Cells # 0.0 Medications Medication Current Medications Acetaminophen (Tylenol Tab) 650 mg Q6H PRN PO MILD PAIN LEVEL 1-3; Start 01/04/19 at 14:00 Amlodipine Besylate (Norvasc) 10 mg DAILY PO Last administered on 01/06/19at 09:39; Admin Dose 10 MG; Start 01/05/19 at 09:00 Aspirin (Halfprin) 81 mg DAILY PO Last administered on 01/06/19at 09:38; Admin Dose 81 MG; Start 01/05/19 at 09:00 Atorvastatin Calcium (Lipitor) 80 mg QHS PO Last administered on 01/05/19 21:44; Admin Dose 80 MG; Start 01/04/19 at 21:00 Baclofen (Lioresal) 10 mg TID PO Last administered on 01/06/19 09:39; Admin Dose 10 MG; Start 01/04/19 at 21:00 Bisacodyl (Dulcolax) 10 mg DAILY PRN PO CONSTIPATION; Start 01/04/19 at 14:00 Carvedilol (Coreg) 12.5 mg BID PO Last administered on 01/06/19 09:39; Admin Dose 12.5 MG; Start 01/04/19 at 21:00 Citalopram Hydrobromide (Celexa) 20 mg DAILY PO Last administered on 01/06/19 0 9:38; Admin Dose 20 MG; Start 01/05/19 at 09:00 Gabapentin (Neurontin) 300 mg TID PO Last administered on 01/06/19 09:38; Admin Dose 300 MG; Start 01/04/19 at 21:00 Losartan Potassium (Cozaar) 25 mg DAILY PO Last administered on 01/06/19 09:38; Admin Dose 25 MG; Start 01/05/19 at 09:00 Ondansetron HCl (Zofran Tab) 4 mg Q8H PRN PO NAUSEA AND/OR VOMITING Last administered on 01/04/19 21:29; Admin Dose 4 MG; Start 01/04/19 at 14:00 Pantoprazole (Protonix Tab) 40 mg AC BREAKFAST PO Last administered on 01/06/19 06:13; Admin Dose 40 MG; Start 01/05/19 at 07:00 Senna (Senokot) 2 tab QPM PO Last administered on 01/05/19 21:44; Admin Dose 2 TAB; Start 01/04/19 at 21:00 Trazodone HCl (Desyrel) 50 mg QHS PO Last administered on 01/05/19 21:45; Admin Dose 50 MG; Start 01/04/19 at 21:00 Apixaban (Eliquis) 2.5 mg BID PO Last administered on 01/06/19 09:40; Admin Dose 2.5 MG; Start 01/04/19 at 21:00 Albuterol/ Ipratropium (Duoneb) 3 ml Q6H RESP THERAPY PRN HHN SHORTNESS OF BREATH Last administered on 01/05/19 01:33; Admin Dose 3 ML; Start 01/04/19 at 15:00 IV Flush (NS 3 ml) 3 ml PER PROTOCOL IV ; Start 01/04/19 at 15:00 Ondansetron HCl (Zofran Inj) 4 mg Q6H PRN IV NAUSEA/VOMITING; Start 01/04/19 at 15:00 Acetaminophen (Tylenol Tab) 650 mg Q6H PRN PO .PAIN 1-3 OR TEMP; Start 01/04/19 at 15:00 Acetaminophen (Tylenol Supp) 650 mg Q6H PRN [place] .PAIN 1-3 OR TEMP; Start 01/04/19 at 15:00 Acetaminophen/ Hydrocodone Bitart ([place] (5/325)) 1 tab Q6H PRN PO .MOD PAIN 4- 6 Last administered on 01/05/19 12:29; Admin Dose 1 TAB; Start 01/04/19 at 15:00 Acetaminophen/ Hydrocodone Bitart ([place] (5/325)) 2 tab Q6H PRN PO .SEVERE PAIN 7-10; Start 01/04/19 at 15:00 Morphine Sulfate (morphine) 2 mg Q4H PRN IV .SEVERE PAIN 7-10 Last administered on 01/06/19 09:51; Admin Dose 2 MG; Start 01/04/19 at 15:00 Docusate Sodium (Colace) 100 mg Q12H PRN PO .CONSTIPATION; Start 01/04/19 at 15:00 Magnesium Hydroxide (Milk Of Mag) 30 ml DAILY PRN PO .CONSTIPATION; Start 01/04/19 at 15:00 Bisacodyl (Dulcolax Supp) 10 mg DAILY PRN [place] .CONSTIPATION; Start 01/04/19 at 15:00 Arformoterol Tartrate (Brovana (Neb)) 2 ml Q12H RESP THERAPY INH Last administered on 01/06/19 08:16; Admin Dose 2 ML; Start 01/04/19 at 20:00 Budesonide (Pulmicort (Neb)) 0.5 mg Q12H RESP THERAPY INH Last administered on 01/06/19 08:16; Admin Dose 0.5 MG; Start 01/04/19 at 20:00 Levofloxacin/ Dextrose 150 ml @ 100 mls/hr Q48H IVPB Last administered on 01/04/19at 18:37; Admin Dose 100 MLS/HR; Start 01/04/19 at 18:30 Guaifenesin (Robitussin Liquid Cup) 200 mg Q4H PRN PO cough; Start 01/05/19 at 13:30 Tramadol HCl (Ultram) 50 mg Q6H PRN PO MODERATE PAIN LEVEL 4-6; Start 01/05/19 at 16:00 Hydralazine HCl (Apresoline) 10 mg Q6H PRN IV ELEVATED SYSTOLIC BP Last administered on 01/06/19at 03:39; Admin Dose 10 MG; Start 01/06/19 at 03:40 Albuterol/ Ipratropium (Duoneb) 3 ml Q6HWA RESP THERAPY INH ; Start 01/06/19 at 14:00 DAVID CHADWICK NP Jan 06, 2019 12:27
[2019-01-06] MEDS: GUAIFENESIN 20 MG/ML 5ML CUP PO PRN ×2 (12:35→22:09)
[2019-01-06] MEDS: ALBUTEROL/IPRATROPIUM (NEB) 3 ML AMP INH SCH ×2 (13:29→20:38)
[2019-01-06] MEDS: HYDROCODONE/APAP (5/325) TAB PO PRN (15:19)
--- NOTE | 2019-01-06 17:14 | CONS ---
DATE OF ADMISSION: 01/05/2019 DATE OF CONSULTATION: TYPE OF CONSULTATION: Pulmonary. REASON FOR CONSULTATION: Shortness of breath, respiratory distress. Thank you, Dr. Howard, for this consultation. HISTORY OF PRESENT ILLNESS: This is a 73-year-old lady with a history of depression, psychiatric dis order, COPD with home O2, presents with several-day history of increasing shortness of breath, orthop cleopatra, PND, cough and sputum production, no hemoptysis or hematemesis, was found to have multifocal pne umonia on chest x-ray, predominantly in the right upper lobe with possible volume loss and traction b ronchiectasis. The patient is a poor historian. PAST MEDICAL HISTORY: She has a prior tobacco history, on home O2. MEDICATIONS: Per chart. ALLERGIES: NONE. SOCIAL HISTORY: Nonsmoker, no alcohol, no history of drug use. FAMILY HISTORY: Noncontributory. SYSTEMS REVIEW: A 12-point review of systems was negative other than mentioned above. PHYSICAL EXAMINATION: GENERAL: Elderly lady on nasal cannula O2. VITAL SIGNS: Currently afebrile, pulse is 60, blood pressure 112/61, O2 saturation 94% on room air. NECK: Supple. No JVD or lymphadenopathy. CARDIAC: S1, S2. No added sounds or murmurs. CHEST: Diminished air entry bilaterally. ABDOMEN: Soft, nontender. No guarding or rebound. EXTREMITIES: No cyanosis, clubbing, edema. NEUROLOGIC: Grossly intact. No focal deficits. DIAGNOSTIC DATA: Chest x-ray: Right upper lobe versus right middle lobe pneumonia, possible underly ing bronchiectasis. EKG showed no acute ischemic changes. LABORATORIES: White count 7.5, hemoglobin 9.8, platelets 160. BUN 31, creatinine 1.07. INR 1.04. IMPRESSION: 1. Questionable pneumonia versus underlying chronic parenchymal process. 2. Acute on chronic hypoxemic respiratory failure. 3. History of psychiatric disorder. PLAN: 1. Continue antibiotics. 2. CT chest to evaluate lung parenchyma. 3. DVT and GI prophylaxis. Dictated By: MALA HAY MD SV/NTS Conf#: [id number] DID#: [id number] CC: KRISTOFER JENKINS MD;*EndCC*
[2019-01-06] MEDS: LEVOFLOXACIN 750MG/D5W (PMX) 150 ML IVPB SCH (17:41)
[2019-01-06] MEDS: SENNA TAB PO SCH (21:49)
[2019-01-06] MEDS: ATORVASTATIN 80 MG TAB PO SCH (21:51)
[2019-01-06] MEDS: traZODone 50 MG TAB PO SCH (21:52)
[2019-01-07 02:20] VITALS: BP 187/91; PULSE 62; RESP 17
[2019-01-07] MEDS: hydrALAzine 20 MG INJ IV PRN (02:43)
[2019-01-07 03:36] VITALS: BP 140/65; PULSE 60
[2019-01-07] MEDS: ALBUTEROL/IPRATROPIUM (NEB) 3 ML AMP HHN PRN (05:14)
[2019-01-07] MEDS: PANTOPRAZOLE (EC) 40 MG TAB PO SCH (06:09)
[2019-01-07] MEDS: ALBUTEROL/IPRATROPIUM (NEB) 3 ML AMP INH SCH ×3 (08:00→20:45)
[2019-01-07] MEDS: BUDESONIDE (NEB) 0.5MG/2ML AMP INH SCH ×2 (08:07→20:47)
[2019-01-07] MEDS: ARFORMOTEROL TARTRATE 15MCG/2 ML AMP INH SCH ×2 (08:07→20:45)
[2019-01-07 08:23] VITALS: BP 193/88; PULSE 60; RESP 18
[2019-01-07] MEDS: morphine 2 MG INJ IV PRN ×2 (08:26→13:24)
[2019-01-07] MEDS: APIXABAN 5 MG TABLET PO SCH ×2 (08:28→20:01)
[2019-01-07] MEDS: AMLODIPINE 10 MG TAB PO SCH (08:29)
[2019-01-07] MEDS: GABAPENTIN 300 MG CAP PO SCH ×3 (08:29→20:04)
[2019-01-07] MEDS: ASPIRIN (EC) 81 MG TAB PO SCH (08:29)
[2019-01-07] MEDS: CITALOPRAM 20 MG TAB PO SCH (08:30)
[2019-01-07] MEDS: LOSARTAN 25 MG TAB PO SCH (08:30)
[2019-01-07] MEDS: BACLOFEN 10 MG TAB PO SCH ×3 (08:30→20:01)
[2019-01-07] MEDS: HYDROCODONE/APAP (5/325) TAB PO PRN ×2 (09:24→20:05)
[2019-01-07 10:35] VITALS: BP 111/53; PULSE 59
[2019-01-07] MEDS: BALSAM PERU/CASTOR OIL 60 GM TUBE TOP SCH (10:35)
--- NOTE | 2019-01-07 10:46 | PN ---
Date/Time of Note Date/Time of Note DATE: 01/07/19 TIME: 10:43 Assessment/Plan VTE Prophylaxis Risk score (from Nsg)>0 risk: 6 SCD applied (from Nsg): Yes Pharmacological prophylaxis: apixaban Lines/Catheters IV Catheter Type (from Nrsg): Saline Lock Urinary Cath still in place: No Assessment/Plan Hospital Course Assessment and plan 1. Multifocal pneumonia. - continue antibiotic. - O2 PRN. - breathing tx adjusted - continue CPT 2. Right lung mass per CT lung imaging -Discussed with family in the reported to me January 07, 2019 that patient did have biopsy at [facility] in [place]. Per family patient was already receiving chemotherapy and radiation however since the patient moved to [place] she has not been followed up for this. Will obtain medical records. We will follow-up with family for goals of care regarding this. 2. Suspect history of A. fib with pacemaker. - Continue to monitor. - continue on Eliquis. - Patient beta-love resumed. - echo with preserved EF 3. COPD. - provide breathing treatments. - Continue O2. Titrate down as tolerated. 4. Essential hypertension. - continue antihypertensives. Will adjust as needed. 5. History of depression. - Continue on Celexa 6. History of paranoid disorder. - Continue on risperidone 7. Hyperlipidemia. - Continue on atorvastatin. 8. Suspect history of CAD. - continue on statin and ASA. 9. suspect history of GERD. - Continue Protonix. 10. Hyperkalemia - kayexalate prn Dispo/Plan: Continue breathing treatments as needed and antibiotics. Follow-up with [facility] for medical records regarding patient's right lung mass. Will discuss with family regarding goals of care. Tentative plan for group home facility once medically stable Discussed POC with Dr. Howard Result Diagram: 01/07/19 0544 01/07/19 0544 Results 24hrs Laboratory Tests Test 01/06/19 11:53 01/07/19 05:44 White Blood Count 7.5 5.7 # Red Blood Count 3.26 L 3.23 L Hemoglobin 9.8 L 9.8 L Hematocrit 32.5 L 32.5 L Mean Corpuscular Volume 99.7 100.6 Mean Corpuscular Hemoglobin 30.1 30.3 Mean Corpuscular Hemoglobin Concent 30.2 L 30.2 L Red Cell Distribution Width 17.0 H 17.0 H Platelet Count 160 155 Mean Platelet Volume 11.0 H 11.3 H Immature Granulocytes % 0.500 H 0.400 Neutrophils % 70.4 66.3 Lymphocytes % 7.8 L 11.9 L Monocytes % 16.2 H 16.1 H Eosinophils % 4.7 4.6 Basophils % 0.4 0.7 Nucleated Red Blood Cells % 0.0 0.0 Immature Granulocytes # 0.040 H 0.020 Neutrophils # 5.3 3.8 Lymphocytes # 0.6 L 0.7 L Monocytes # 1.2 H 0.9 Eosinophils # 0.4 0.3 Basophils # 0.0 0.0 Nucleated Red Blood Cells # 0.0 0.0 Sodium Level 140 140 Potassium Level 4.7 4.9 Chloride Level 106 107 Carbon Dioxide Level 29 29 Anion Gap 5 4 L Blood Urea Nitrogen 31 H 30 H Creatinine 1.07 H 1.04 H Est Glomerular Filtrat Rate mL/min Glucose Level 69 #L 77 Calcium Level 9.0 8.7 Subjective 24 Hr Interval Summary Free Text/Dictation Still with reported cough, little better breathing today Exam/Review of Systems Exam Vitals Vital Signs Date Temp Pulse Resp B/P (MAP) Pulse Ox O2 O2 Flow FiO2 Time Delivery Rate 01/07/19 59 111/53 10:35 (72) 01/07/19 98.2 18 100 Room Air 08:23 01/07/19 2.0 08:16 01/07/19 21 05:17 Intake and Output 01/06/19 01/06/19 01/07/19 1515:00 23:00 07:00 IntakeIntake Total 300 ml 550 ml 400 ml BalanceBalance 300 ml 550 ml 400 ml Exam Constitutional: alert Psych: nl mood/affect Head: normocephalic Eyes: nl conjunctiva Neck: supple, non-tender Respiratory: congested cough, little rhonchi Cardiovascular: other (pacemaker in place, regular rate ) Gastrointestinal: soft, non-tender Neurological: nl speech Skin: other (decubitus ulcer sacral area ) Results Results 24hrs Laboratory Tests Test 01/06/19 11:53 01/07/19 05:44 White Blood Count 7.5 5.7 # Red Blood Count 3.26 L 3.23 L Hemoglobin 9.8 L 9.8 L Hematocrit 32.5 L 32.5 L Mean Corpuscular Volume 99.7 100.6 Mean Corpuscular Hemoglobin 30.1 30.3 Mean Corpuscular Hemoglobin Concent 30.2 L 30.2 L Red Cell Distribution Width 17.0 H 17.0 H Platelet Count 160 155 Mean Platelet Volume 11.0 H 11.3 H Immature Granulocytes % 0.500 H 0.400 Neutrophils % 70.4 66.3 Lymphocytes % 7.8 L 11.9 L Monocytes % 16.2 H 16.1 H Eosinophils % 4.7 4.6 Basophils % 0.4 0.7 Nucleated Red Blood Cells % 0.0 0.0 Immature Granulocytes # 0.040 H 0.020 Neutrophils # 5.3 3.8 Lymphocytes # 0.6 L 0.7 L Monocytes # 1.2 H 0.9 Eosinophils # 0.4 0.3 Basophils # 0.0 0.0 Nucleated Red Blood Cells # 0.0 0.0 Sodium Level 140 140 Potassium Level 4.7 4.9 Chloride Level 106 107 Carbon Dioxide Level 29 29 Anion Gap 5 4 L Blood Urea Nitrogen 31 H 30 H Creatinine 1.07 H 1.04 H Est Glomerular Filtrat Rate mL/min Glucose Level 69 #L 77 Calcium Level 9.0 8.7 Medications Medication Current Medications Acetaminophen (Tylenol Tab) 650 mg Q6H PRN PO MILD PAIN LEVEL 1-3; Start 01/04/19 at 14:00 Amlodipine Besylate (Norvasc) 10 mg DAILY PO Last administered on 01/07/19at 08:29; Admin Dose 10 MG; Start 01/05/19 at 09:00 Aspirin (Halfprin) 81 mg DAILY PO Last administered on 01/07/19at 08:29; Admin Dose 81 MG; Start 01/05/19 at 09:00 Atorvastatin Calcium (Lipitor) 80 mg QHS PO Last administered on 01/06/19at 21:51; Admin Dose 80 MG; Start 01/04/19 at 21:00 Baclofen (Lioresal) 10 mg TID PO Last administered on 01/07/19at 08:30; Admin Dose 10 MG; Start 01/04/19 at 21:00 Bisacodyl (Dulcolax) 10 mg DAILY PRN PO CONSTIPATION; Start 01/04/19 at 14:00 Carvedilol (Coreg) 12.5 mg BID PO Last administered on 01/07/19 08:30; Admin Dose 12.5 MG; Start 01/04/19 at 21:00 Citalopram Hydrobromide (Celexa) 20 mg DAILY PO Last administered on 01/07/19 08:30; Admin Dose 20 MG; Start 01/05/19 at 09:00 Gabapentin (Neurontin) 300 mg TID PO Last administered on 01/07/19 08:29; Admin Dose 300 MG; Start 01/04/19 at 21:00 Losartan Potassium (Cozaar) 25 mg DAILY PO Last administered on 01/07/19 08:30; Admin Dose 25 MG; Start 01/05/19 at 09:00 Ondansetron HCl (Zofran Tab) 4 mg Q8H PRN PO NAUSEA AND/OR VOMITING Last administered on 01/04/19 21:29; Admin Dose 4 MG; Start 01/04/19 at 14:00 Pantoprazole (Protonix Tab) 40 mg AC BREAKFAST PO Last administered on 01/07/19 06:09; Admin Dose 40 MG; Start 01/05/19 at 07:00 Senna (Senokot) 2 tab QPM PO Last administered on 01/06/19 21:49; Admin Dose 2 TAB; Start 01/04/19 at 21:00 Trazodone HCl (Desyrel) 50 mg QHS PO Last administered on 01/06/19 21:52; Admin Dose 50 MG; Start 01/04/19 at 21:00 Apixaban (Eliquis) 2.5 mg BID PO Last administered on 01/07/19 08:28; Admin Dose 2.5 MG; Start 01/04/19 at 21:00 Albuterol/ Ipratropium (Duoneb) 3 ml Q6H RESP THERAPY PRN HHN SHORTNESS OF B REATH Last administered on 01/07/19 05:14; Admin Dose 3 ML; Start 01/04/19 at 15:00 IV Flush (NS 3 ml) 3 ml PER PROTOCOL IV ; Start 01/04/19 at 15:00 Ondansetron HCl (Zofran Inj) 4 mg Q6H PRN IV NAUSEA/VOMITING; Start 01/04/19 at 15:00 Acetaminophen (Tylenol Tab) 650 mg Q6H PRN PO .PAIN 1-3 OR TEMP; Start 01/04/19 at 15:00 Acetaminophen (Tylenol Supp) 650 mg Q6H PRN [place] .PAIN 1-3 OR TEMP; Start 01/04/19 at 15:00 Acetaminophen/ Hydrocodone Bitart ([place] (5/325)) 1 tab Q6H PRN PO .MOD PAIN 4- 6 Last administered on 01/06/19 15:19; Admin Dose 1 TAB; Start 01/04/19 at 15:00 Acetaminophen/ Hydrocodone Bitart ([place] (5/325)) 2 tab Q6H PRN PO .SEVERE PAIN 7-10 Last administered on 01/07/19 09:24; Admin Dose 2 TAB; Start 01/04/19 at 15:00 Morphine Sulfate (morphine) 2 mg Q4H PRN IV .SEVERE PAIN 7-10 Last administered on 01/07/19 08:26; Admin Dose 2 MG; Start 01/04/19 at 15:00 Docusate Sodium (Colace) 100 mg Q12H PRN PO .CONSTIPATION; Start 01/04/19 at 15:00 Magnesium Hydroxide (Milk Of Mag) 30 ml DAILY PRN PO .CONSTIPATION; Start 01/04/19 at 15:00 Bisacodyl (Dulcolax Supp) 10 mg DAILY PRN [place] .CONSTIPATION; Start 01/04/19 at 15:00 Arformoterol Tartrate (Brovana (Neb)) 2 ml Q12H RESP THERAPY INH Last administered on 01/07/19 08:07; Admin Dose 2 ML; Start 01/04/19 at 20:00 Budesonide (Pulmicort (Neb)) 0.5 mg Q12H RESP THERAPY INH Last administered on 01/07/19 08:07; Admin Dose 0.5 MG; Start 01/04/19 at 20:00 Levofloxacin/ Dextrose 150 ml @ 100 mls/hr Q48H IVPB Last administered on 01/06/19 17:41; Admin Dose 100 MLS/HR; Start 01/04/19 at 18:30 Guaifenesin (Robitussin Liquid Cup) 200 mg Q4H PRN PO cough Last administered on 01/06/19 22:09; Admin Dose 200 MG; Start 01/05/19 at 13:30 Tramadol HCl (Ultram) 50 mg Q6H PRN PO MODERATE PAIN LEVEL 4-6; Start 01/05/19 at 16:00 Hydralazine HCl (Apresoline) 10 mg Q6H PRN IV ELEVATED SYSTOLIC BP Last administered on 01/07/19at 02:43; Admin Dose 10 MG; Start 01/06/19 at 03:40 Albuterol/ Ipratropium (Duoneb) 3 ml Q6HWA RESP THERAPY INH Last administered on 01/06/19at 20:38; Admin Dose 3 ML; Start 01/06/19 at 14:00 Hydralazine HCl (Apresoline) 25 mg TID PO ; Start 01/07/19 at 13:00; Status UNV DAVID CHADWICK NP Jan 07, 2019 10:46
--- NOTE | 2019-01-07 10:52 | CONS ---
Consult Date/Type/Reason Admit Date/Time Jan 05, 2019 at 01:04 Initial Consult Date Type of Consult Pulmonary Date/Time of Note DATE: 01/07/19 TIME: 10:50 Subjective Patient stable this morning no respiratory distress CT chest demonstrates right hilar mass with postobstructive changes. Primary care team discussed with the family, this is an old finding she was previously receiving chemoradiation. Objective Vital Signs Date Temp Pulse Resp B/P (MAP) Pulse Ox O2 O2 Flow FiO2 Time Delivery Rate 01/07/19 59 111/53 10:35 (72) 01/07/19 98.2 18 100 Room Air 08:23 01/07/19 2.0 08:16 01/07/19 21 05:17 Intake and Output 01/06/19 01/06/19 01/07/19 1515:00 23:00 07:00 IntakeIntake Total 300 ml 550 ml 400 ml BalanceBalance 300 ml 550 ml 400 ml Exam PHYSICAL EXAMINATION: GENERAL: Elderly lady on nasal cannula O2. VITAL SIGNS: NECK: Supple. No JVD or lymphadenopathy. CARDIAC: S1, S2. No added sounds or murmurs. CHEST: Diminished air entry bilaterally. ABDOMEN: Soft, nontender. No guarding or rebound. EXTREMITIES: No cyanosis, clubbing, edema. NEUROLOGIC: Grossly intact. No focal deficits. Vent Setting Fraction of Inspired Oxygen pe: 21 Results/Medications Result Diagram: 01/07/19 0544 01/07/19 0544 Results 24 hrs Laboratory Tests Test 01/06/19 11:53 01/07/19 05:44 White Blood Count 7.5 5.7 # Red Blood Count 3.26 L 3.23 L Hemoglobin 9.8 L 9.8 L Hematocrit 32.5 L 32.5 L Mean Corpuscular Volume 99.7 100.6 Mean Corpuscular Hemoglobin 30.1 30.3 Mean Corpuscular Hemoglobin Concent 30.2 L 30.2 L Red Cell Distribution Width 17.0 H 17.0 H Platelet Count 160 155 Mean Platelet Volume 11.0 H 11.3 H Immature Granulocytes % 0.500 H 0.400 Neutrophils % 70.4 66.3 Lymphocytes % 7.8 L 11.9 L Monocytes % 16.2 H 16.1 H Eosinophils % 4.7 4.6 Basophils % 0.4 0.7 Nucleated Red Blood Cells % 0.0 0.0 Immature Granulocytes # 0.040 H 0.020 Neutrophils # 5.3 3.8 Lymphocytes # 0.6 L 0.7 L Monocytes # 1.2 H 0.9 Eosinophils # 0.4 0.3 Basophils # 0.0 0.0 Nucleated Red Blood Cells # 0.0 0.0 Sodium Level 140 140 Potassium Level 4.7 4.9 Chloride Level 106 107 Carbon Dioxide Level 29 29 Anion Gap 5 4 L Blood Urea Nitrogen 31 H 30 H Creatinine 1.07 H 1.04 H Est Glomerular Filtrat Rate mL/min Glucose Level 69 #L 77 Calcium Level 9.0 8.7 Medications Current Medications Acetaminophen (Tylenol Tab) 650 mg Q6H PRN PO MILD PAIN LEVEL 1-3; Start at 14:00 Amlodipine Besylate (Norvasc) 10 mg DAILY PO Last administered on 01/07/19 08:29; Admin Dose 10 MG; Start 01/05/19 at 09:00 Aspirin (Halfprin) 81 mg DAILY PO Last administered on 01/07/19 08:29; Admin Dose 81 MG; Start 01/05/19 at 09:00 Atorvastatin Calcium (Lipitor) 80 mg QHS PO Last administered on 01/06/19 21:51; Admin Dose 80 MG; Start 01/04/19 at 21:00 Baclofen (Lioresal) 10 mg TID PO Last administered on 01/07/19 08:30; Admin Dose 10 MG; Start 01/04/19 at 21:00 Bisacodyl (Dulcolax) 10 mg DAILY PRN PO CONSTIPATION; Start 01/04/19 at 14:00 Carvedilol (Coreg) 12.5 mg BID PO Last administered on 01/07/19 08:30; Admin Dose 12.5 MG; Start 01/04/19 at 21:00 Citalopram Hydrobromide (Celexa) 20 mg DAILY PO Last administered on 01/07/19 08:30; Admin Dose 20 MG; Start 01/05/19 at 09:00 Gabapentin (Neurontin) 300 mg TID PO Last administered on 01/07/19 08:29; Admin Dose 300 MG; Start 01/04/19 at 21:00 Losartan Potassium (Cozaar) 25 mg DAILY PO Last administered on 6/5/19at 08:30; Admin Dose 25 MG; Start 01/05/19 at 09:00 Ondansetron HCl (Zofran Tab) 4 mg Q8H PRN PO NAUSEA AND/OR VOMITING Last administered on 01/04/19 21:29; Admin Dose 4 MG; Start 01/04/19 at 14:00 Pantoprazole (Protonix Tab) 40 mg AC BREAKFAST PO Last administered on 01/07/19 06:09; Admin Dose 40 MG; Start 01/05/19 at 07:00 Senna (Senokot) 2 tab QPM PO Last administered on 01/06/19 21:49; Admin Dose 2 TAB; Start 01/04/19 at 21:00 Trazodone HCl (Desyrel) 50 mg QHS PO Last administered on 01/06/19 21:52; Admin Dose 50 MG; Start 01/04/19 at 21:00 Apixaban (Eliquis) 2.5 mg BID PO Last administered on 01/07/19 08:28; Admin Dose 2.5 MG; Start 01/04/19 at 21:00 Albuterol/ Ipratropium (Duoneb) 3 ml Q6H RESP THERAPY PRN HHN SHORTNESS OF BREATH Last administered on 01/07/19 05:14; Admin Dose 3 ML; Start 01/04/19 at 15:00 IV Flush (NS 3 ml) 3 ml PER PROTOCOL IV ; Start 01/04/19 at 15:00 Ondansetron HCl (Zofran Inj) 4 mg Q6H PRN IV NAUSEA/VOMITING; Start 01/04/19 at 15:00 Acetaminophen (Tylenol Tab) 650 mg Q6H PRN PO .PAIN 1-3 OR TEMP; Start 01/04/19 at 15:00 Acetaminophen (Tylenol Supp) 650 mg Q6H PRN [place] .PAIN 1-3 OR TEMP; Start 01/04/19 at 15:00 Acetaminophen/ Hydrocodone Bitart ([place] (5/325)) 1 tab Q6H PRN PO .MOD PAIN 4- 6 Last administered on 01/06/19 15:19; Admin Dose 1 TAB; Start 01/04/19 at 15:00 Acetaminophen/ Hydrocodone Bitart ([place] (5/325)) 2 tab Q6H PRN PO .SEVERE PAIN 7-10 Last administered on 01/07/19 09:24; Admin Dose 2 TAB; Start 01/04/19 at 15:00 Morphine Sulfate (morphine) 2 mg Q4H PRN IV .SEVERE PAIN 7-10 Last administered on 01/07/19 08:26; Admin Dose 2 MG; Start 01/04/19 at 15:00 Docusate Sodium (Colace) 100 mg Q12H PRN PO .CONSTIPATION; Start 01/04/19 at 15:00 Magnesium Hydroxide (Milk Of Mag) 30 ml DAILY PRN PO .CONSTIPATION; Start 01/04/19 at 15:00 Bisacodyl (Dulcolax Supp) 10 mg DAILY PRN [place] .CONSTIPATION; Start 01/04/19 at 15:00 Arformoterol Tartrate (Brovana (Neb)) 2 ml Q12H RESP THERAPY INH Last administered on 01/07/19 08:07; Admin Dose 2 ML; Start 01/04/19 at 20:00 Budesonide (Pulmicort (Neb)) 0.5 mg Q12H RESP THERAPY INH Last administered on 01/07/19 08:07; Admin Dose 0.5 MG; Start 01/04/19 at 20:00 Levofloxacin/ Dextrose 150 ml @ 100 mls/hr Q48H IVPB Last administered on 01/06/19 17:41; Admin Dose 100 MLS/HR; Start 01/04/19 at 18:30 Guaifenesin (Robitussin Liquid Cup) 200 mg Q4H PRN PO cough Last administered on 01/06/19 22:09; Admin Dose 200 MG; Start 01/05/19 at 13:30 Tramadol HCl (Ultram) 50 mg Q6H PRN PO MODERATE PAIN LEVEL 4-6; Start 01/05/19 at 16:00 Hydralazine HCl (Apresoline) 10 mg Q6H PRN IV ELEVATED SYSTOLIC BP Last administered on 01/07/19 02:43; Admin Dose 10 MG; Start 01/06/19 at 03:40 Albuterol/ Ipratropium (Duoneb) 3 ml Q6HWA RESP THERAPY INH Last administered on 01/06/19 20:38; Admin Dose 3 ML; Start 01/06/19 at 14:00 Hydralazine HCl (Apresoline) 25 mg TID PO ; Start 01/07/19 at 13:00; Status UNV Assessment/Plan Hospital Course (Demo Recall) IMPRESSION: 1. Non-small cell lung cancer right upper lobe, patient previously treated in [place] 2. Acute on chronic hypoxemic respiratory failure. 3. History of psychiatric disorder. PLAN: 1. Continue antibiotics. De-escalate soon 2. Obtain prior oncology work-up. 3. Discharge planning okay from pulmonary standpoint outpatient heme-onc follow-up. MALA HAY MD, [facility] Jan 07, 2019 10:52
[2019-01-07 13:14] VITALS: BP 95/55; PULSE 60; RESP 18
[2019-01-07] MEDS: GUAIFENESIN 20 MG/ML 5ML CUP PO PRN ×2 (13:20→17:13)
[2019-01-07] MEDS ORDERED: BENZONATATE 100 MG CAP PO PRN (17:00)
[2019-01-07 20:00] VITALS: BP 120/81; PULSE 61; RESP 19
[2019-01-07] MEDS: traZODone 50 MG TAB PO SCH (20:01)
[2019-01-07] MEDS: ATORVASTATIN 80 MG TAB PO SCH (20:01)
[2019-01-07] MEDS: SENNA TAB PO SCH (20:02)
[2019-01-08 02:00] VITALS: BP 176/120; PULSE 61; RESP 20
[2019-01-08] MEDS: hydrALAzine 20 MG INJ IV PRN (03:02)
[2019-01-08] MEDS: HYDROCODONE/APAP (5/325) TAB PO PRN ×2 (03:18→09:47)
[2019-01-08] MEDS: ALBUTEROL/IPRATROPIUM (NEB) 3 ML AMP HHN PRN (03:32)
[2019-01-08 04:35] VITALS: BP 109/74; PULSE 67; RESP 18
[2019-01-08] MEDS: PANTOPRAZOLE (EC) 40 MG TAB PO SCH (06:10)
[2019-01-08 07:38] VITALS: BP 112/57; PULSE 64; RESP 18
[2019-01-08] MEDS: ALBUTEROL/IPRATROPIUM (NEB) 3 ML AMP INH SCH ×3 (08:55→19:29)
[2019-01-08] MEDS: LOSARTAN 25 MG TAB PO SCH (09:00)
[2019-01-08] MEDS: AMLODIPINE 10 MG TAB PO SCH (09:00)
[2019-01-08] MEDS: BUDESONIDE (NEB) 0.5MG/2ML AMP INH SCH ×2 (09:04→19:29)
[2019-01-08] MEDS: ARFORMOTEROL TARTRATE 15MCG/2 ML AMP INH SCH ×2 (09:14→19:29)
[2019-01-08] MEDS: ASPIRIN (EC) 81 MG TAB PO SCH (09:31)
[2019-01-08] MEDS: GABAPENTIN 300 MG CAP PO SCH ×3 (09:32→21:00)
[2019-01-08] MEDS: APIXABAN 5 MG TABLET PO SCH ×2 (09:32→21:00)
[2019-01-08] MEDS: BACLOFEN 10 MG TAB PO SCH ×3 (09:32→21:00)
[2019-01-08] MEDS: CITALOPRAM 20 MG TAB PO SCH (09:32)
[2019-01-08] MEDS: BALSAM PERU/CASTOR OIL 60 GM TUBE TOP SCH (09:35)
[2019-01-08] MEDS: SOD CHLORIDE 0.9% 1,000 ML IV SCH (12:27)
--- NOTE | 2019-01-08 12:47 | CONS ---
Assessment/Plan Assessment/Plan Assessment/Plan (Daily) Assessment recommendations; 1. Patient with history of non-small cell lung cancer involving right upper lobe status post chemoradiation admitted with what appears to be COPD exacerbation with acute bronchitis. 2. Peripheral neuropathy. 3. Likely chronic renal insufficiency with mild to be compensation. 4. History of cardiac arrhythmia, status post pacemaker placement in the past. Continue current supportive care. Add Solu-Medrol 40 mg every 8 hours. Monitor renal function. Consultation Date/Type/Reason Admit Date/Time Jan 05, 2019 at 01:04 Initial Consult Date Type of Consult Pulmonary Patient is complaining of mild wheezing. Denies any chest pain, complains of mild cough without any hemoptysis or sputum production. General exam; elderly woman, awake alert, currently in no distress. Reason for Consultation H EENT exam; supple neck, no JVD. No lymphadenopathy. Midline trachea. No thyromegaly. Patient is edentulous. Exam; bilateral wheezing. S1-S2 audible, no murmurs. Regular rhythm. Pacemaker in left chest wall. Abdomen exam; soft, nontender. No organomegaly. Bowel sounds audible. Extremity exam; peripheral edema clubbing. DRY [employer]ER exam; no focal deficit. Date/Time of Note DATE: 01/08/19 TIME: 12:45 Exam/Review of Systems Exam Vitals Vital Signs Date Temp Pulse Resp B/P (MAP) Pulse Ox O2 O2 Flow FiO2 Time Delivery Rate 01/08/19 68 22 92 Nasal 2.0 08:55 Cannula 01/08/19 98.1 112/57 07:38 (75) 01/07/19 21 05:17 Intake and Output 01/07/19 01/07/19 01/08/19 1515:00 23:00 07:00 IntakeIntake Total 720 ml 580 ml BalanceBalance 720 ml 580 ml Results Result Diagram: 01/08/19 0829 01/08/19 0829 Results 24hrs Laboratory Tests Test 01/08/19 08:29 White Blood Count 6.1 Red Blood Count 3.54 L Hemoglobin 10.7 L Hematocrit 36.4 L Mean Corpuscular Volume 102.8 H Mean Corpuscular Hemoglobin 30.2 Mean Corpuscular Hemoglobin Concent 29.4 L Red Cell Distribution Width 16.5 H Platelet Count 173 Mean Platelet Volume 11.7 H Immature Granulocytes % 0.300 Neutrophils % 72.0 Lymphocytes % 10.0 L Monocytes % 13.1 H Eosinophils % 4.1 Basophils % 0.5 Nucleated Red Blood Cells % 0.0 Immature Granulocytes # 0.020 Neutrophils # 4.4 Lymphocytes # 0.6 L Monocytes # 0.8 Eosinophils # 0.3 Basophils # 0.0 Nucleated Red Blood Cells # 0.0 Sodium Level 137 Potassium Level 5.2 H Chloride Level 102 Carbon Dioxide Level 26 Anion Gap 9 # Blood Urea Nitrogen 40 H Creatinine 1.35 H Est Glomerular Filtrat Rate mL/min Glucose Level 76 Calcium Level 9.0 Medications Medication Current Medications Acetaminophen (Tylenol Tab) 650 mg Q6H PRN PO MILD PAIN LEVEL 1-3; Start 01/04/19 at 14:00 Amlodipine Besylate (Norvasc) 10 mg DAILY PO Last administered on 01/07/19 08:29; Admin Dose 10 MG; Start 01/05/19 at 09:00 Aspirin (Halfprin) 81 mg DAILY PO Last administered on 01/08/19 09:31; Admin Dose 81 MG; Start 01/05/19 at 09:00 Atorvastatin Calcium (Lipitor) 80 mg QHS PO Last administered on 01/07/19 20:01; Admin Dose 80 MG; Start 01/04/19 at 21:00 Baclofen (Lioresal) 10 mg TID PO Last administered on 01/08/19 09:32; Admin Dose 10 MG; Start 01/04/19 at 21:00 Bisacodyl (Dulcolax) 10 mg DAILY PRN PO CONSTIPATION; Start 01/04/19 at 14:00 Carvedilol (Coreg) 12.5 mg BID PO Last administered on 01/07/19 20:01; Admin Dose 12.5 MG; Start 01/04/19 at 21:00 Citalopram Hydrobromide (Celexa) 20 mg DAILY PO Last administered on 01/08/19 09:32; Admin Dose 20 MG; Start 01/05/19 at 09:00 Gabapentin (Neurontin) 300 mg TID PO Last administered on 01/08/19 09:32; Admin Dose 300 MG; Start 01/04/19 at 21:00 Ondansetron HCl (Zofran Tab) 4 mg Q8H PRN PO NAUSEA AND/OR VOMITING Last administered on 01/04/19 21:29; Admin Dose 4 MG; Start 01/04/19 at 14:00 Pantoprazole (Protonix Tab) 40 mg AC BREAKFAST PO Last administered on 01/08/19 t 06:10; Admin Dose 40 MG; Start 01/05/19 at 07:00 Senna (Senokot) 2 tab QPM PO Last administered on 01/06/19 21:49; Admin Dose 2 TAB; Start 01/04/19 at 21:00 Trazodone HCl (Desyrel) 50 mg QHS PO Last administered on 01/07/19 20:01; Admin Dose 50 MG; Start 01/04/19 at 21:00 Apixaban (Eliquis) 2.5 mg BID PO Last administered on 01/08/19 09:32; Admin Dose 2.5 MG; Start 01/04/19 at 21:00 Albuterol/ Ipratropium (Duoneb) 3 ml Q6H RESP THERAPY PRN HHN SHORTNESS OF BREATH Last administered on 01/08/19 03:32; Admin Dose 3 ML; Start 01/04/19 at 15:00 IV Flush (NS 3 ml) 3 ml PER PROTOCOL IV ; Start 01/04/19 at 15:00 Ondansetron HCl (Zofran Inj) 4 mg Q6H PRN IV NAUSEA/VOMITING; Start 01/04/19 at 15:00 Acetaminophen (Tylenol Tab) 650 mg Q6H PRN PO .PAIN 1-3 OR TEMP; Start 01/04/19 at 15:00 Acetaminophen (Tylenol Supp) 650 mg Q6H PRN [place] .PAIN 1-3 OR TEMP; Start 01/04/19 at 15:00 Acetaminophen/ Hydrocodone Bitart ([place] (5/325)) 1 tab Q6H PRN PO .MOD PAIN 4- 6 Last administered on 01/06/19 15:19; Admin Dose 1 TAB; Start 01/04/19 at 15:00 Acetaminophen/ Hydrocodone Bitart ([place] (5/325)) 2 tab Q6H PRN PO .SEVERE PAIN 7-10 Last administered on 01/08/19 09:47; Admin Dose 2 TAB; Start 01/04/19 at 15:00 Morphine Sulfate (morphine) 2 mg Q4H PRN IV .SEVERE PAIN 7-10 Last administered on 01/07/19 13:24; Admin Dose 2 MG; Start 01/04/19 at 15:00 Docusate Sodium (Colace) 100 mg Q12H PRN PO .CONSTIPATION; Start 01/04/19 at 15:00 Magnesium Hydroxide (Milk Of Mag) 30 ml DAILY PRN PO .CONSTIPATION; Start 01/04/19 at 15:00 Bisacodyl (Dulcolax Supp) 10 mg DAILY PRN [place] .CONSTIPATION; Start 01/04/19 at 15:00 Arformoterol Tartrate (Brovana (Neb)) 2 ml Q12H RESP THERAPY INH Last administered on 01/08/19 09:14; Admin Dose 2 ML; Start 01/04/19 at 20:00 Budesonide (Pulmicort (Neb)) 0.5 mg Q12H RESP THERAPY INH Last administered on 01/08/19 09:04; Admin Dose 0.5 MG; Start 01/04/19 at 20:00 Guaifenesin (Robitussin Liquid Cup) 200 mg Q4H PRN PO cough Last administered on 01/07/19 17:13; Admin Dose 200 MG; Start 01/05/19 at 13:30 Tramadol HCl (Ultram) 50 mg Q6H PRN PO MODERATE PAIN LEVEL 4-6; Start 01/05/19 at 16:00 Hydralazine HCl (Apresoline) 10 mg Q6H PRN IV ELEVATED SYSTOLIC BP Last administered on 01/08/19 03:02; Admin Dose 10 MG; Start 01/06/19 at 03:40 Albuterol/ Ipratropium (Duoneb) 3 ml Q6HWA RESP THERAPY INH Last administered on 01/08/19 08:55; Admin Dose 3 ML; Start 01/06/19 at 14:00 Hydralazine HCl (Apresoline) 25 mg TID PO Last administered on 01/07/19 20:00; Admin Dose 25 MG; Start 01/07/19 at 13:00 Levofloxacin (Levaquin) 750 mg Q48H PO ; Start 01/08/19 at 18:30 Benzonatate (Tessalon) 200 mg TID PRN PO cough Last administered on 01/07/19 20:08; Admin Dose 200 MG; Start 01/07/19 at 17:00 Sodium Chloride 1,000 ml @ 70 mls/hr [id number] IV Last administered on 01/08/19at 12:27; Admin Dose 70 MLS/HR; Start 01/08/19 at 11:30 JEAN PAUL COPELAND Jan 08, 2019 12:47
[2019-01-08 14:00] VITALS: BP 140/71; PULSE 62; RESP 18
[2019-01-08] MEDS: METHYLPREDNISOLONE 40 MG INJ IV SCH ×2 (14:16→22:37)
--- NOTE | 2019-01-08 14:47 | PN ---
Date/Time of Note Date/Time of Note DATE: 01/08/19 TIME: 14:45 Assessment/Plan VTE Prophylaxis Risk score (from Nsg)>0 risk: 4 SCD applied (from Nsg): Yes Pharmacological prophylaxis: apixaban Lines/Catheters IV Catheter Type (from Nrsg): Saline Lock Urinary Cath still in place: No Assessment/Plan Hospital Course Assessment and plan 1. Multifocal pneumonia. - continue antibiotic. - O2 PRN. - breathing tx adjusted - continue CPT - steroid per pulmonary 2. Right lung mass per CT lung imaging -Discussed with family in the reported to me January 07, 2019 that patient did h ave biopsy at [facility] in [place]. Per family patient was already receiving chemotherapy and radiation however since the patient moved to [place] she has not been followed up for this. - will get oncology consultation 2. Suspect history of A. fib with pacemaker. - Continue to monitor. - continue on Eliquis. - Patient beta-love resumed. - echo with preserved EF 3. COPD. - provide breathing treatments. - Continue O2. Titrate down as tolerated. 4. Essential hypertension. - continue antihypertensives. Will adjust as needed. 5. History of depression. - Continue on Celexa 6. History of paranoid disorder. - Continue on risperidone 7. Hyperlipidemia. - Continue on atorvastatin. 8. Suspect history of CAD. - continue on statin and ASA. 9. suspect history of GERD. - Continue Protonix. 10. Hyperkalemia - kayexalate prn 11. decubitus ulcer - continue wound care Dispo/Plan: continue abx and breathing tx. oncology consultation to follow. f/u trevor Discussed POC with Dr. Howard Result Diagram: 01/08/19 0829 01/08/19 0829 Results 24hrs Laboratory Tests Test 01/08/19 08:29 White Blood Count 6.1 Red Blood Count 3.54 L Hemoglobin 10.7 L Hematocrit 36.4 L Mean Corpuscular Volume 102.8 H Mean Corpuscular Hemoglobin 30.2 Mean Corpuscular Hemoglobin Concent 29.4 L Red Cell Distribution Width 16.5 H Platelet Count 173 Mean Platelet Volume 11.7 H Immature Granulocytes % 0.300 Neutrophils % 72.0 Lymphocytes % 10.0 L Monocytes % 13.1 H Eosinophils % 4.1 Basophils % 0.5 Nucleated Red Blood Cells % 0.0 Immature Granulocytes # 0.020 Neutrophils # 4.4 Lymphocytes # 0.6 L Monocytes # 0.8 Eosinophils # 0.3 Basophils # 0.0 Nucleated Red Blood Cells # 0.0 Sodium Level 137 Potassium Level 5.2 H Chloride Level 102 Carbon Dioxide Level 26 Anion Gap 9 # Blood Urea Nitrogen 40 H Creatinine 1.35 H Est Glomerular Filtrat Rate mL/min Glucose Level 76 Calcium Level 9.0 Subjective 24 Hr Interval Summary Free Text/Dictation still with some shortness of breath, slightly better Exam/Review of Systems Exam Vitals Vital Signs Date Temp Pulse Resp B/P (MAP) Pulse Ox O2 O2 Flow FiO2 Time Delivery Rate 01/08/19 98.0 62 18 140/71 98 Nasal 14:00 (94) Cannula 01/08/19 2.0 13:07 01/07/19 21 05:17 Intake and Output 01/07/19 01/07/19 01/08/19 1515:00 23:00 07:00 IntakeIntake Total 720 ml 580 ml BalanceBalance 720 ml 580 ml Exam Constitutional: alert Psych: nl mood/affect Head: normocephalic Eyes: nl conjunctiva Neck: supple, non-tender Respiratory: congested cough, little rhonchi Cardiovascular: other (pacemaker in place, regular rate ) Gastrointestinal: soft, non-tender Neurological: nl speech Skin: other (decubitus ulcer sacral area ) Results Results 24hrs Laboratory Tests Test 01/08/19 08:29 White Blood Count 6.1 Red Blood Count 3.54 L Hemoglobin 10.7 L Hematocrit 36.4 L Mean Corpuscular Volume 102.8 H Mean Corpuscular Hemoglobin 30.2 Mean Corpuscular Hemoglobin Concent 29.4 L Red Cell Distribution Width 16.5 H Platelet Count 173 Mean Platelet Volume 11.7 H Immature Granulocytes % 0.300 Neutrophils % 72.0 Lymphocytes % 10.0 L Monocytes % 13.1 H Eosinophils % 4.1 Basophils % 0.5 Nucleated Red Blood Cells % 0.0 Immature Granulocytes # 0.020 Neutrophils # 4.4 Lymphocytes # 0.6 L Monocytes # 0.8 Eosinophils # 0.3 Basophils # 0.0 Nucleated Red Blood Cells # 0.0 Sodium Level 137 Potassium Level 5.2 H Chloride Level 102 Carbon Dioxide Level 26 Anion Gap 9 # Blood Urea Nitrogen 40 H Creatinine 1.35 H Est Glomerular Filtrat Rate mL/min Glucose Level 76 Calcium Level 9.0 Medications Medication Current Medications Acetaminophen (Tylenol Tab) 650 mg Q6H PRN PO MILD PAIN LEVEL 1-3; Start 01/04/19 at 14:00 Amlodipine Besylate (Norvasc) 10 mg DAILY PO Last administered on 01/07/19 08:29; Admin Dose 10 MG; Start 01/05/19 at 09:00 Aspirin (Halfprin) 81 mg DAILY PO Last administered on 01/08/19 09:31; Admin Dose 81 MG; Start 01/05/19 at 09:00 Atorvastatin Calcium (Lipitor) 80 mg QHS PO Last administered on 01/07/19 20:01; Admin Dose 80 MG; Start 01/04/19 at 21:00 Baclofen (Lioresal) 10 mg TID PO Last administered on 01/08/19 14:16; Admin Dose 10 MG; Start 01/04/19 at 21:00 Bisacodyl (Dulcolax) 10 mg DAILY PRN PO CONSTIPATION; Start 01/04/19 at 14:00 Carvedilol (Coreg) 12.5 mg BID PO Last administered on 01/07/19 20:01; Admin Dose 12.5 MG; Start 01/04/19 at 21:00 Citalopram Hydrobromide (Celexa) 20 mg DAILY PO Last administered on 01/08/19 09:32; Admin Dose 20 MG; Start 01/05/19 at 09:00 Gabapentin (Neurontin) 300 mg TID PO Last administered on 01/08/19 14:15; Admin Dose 300 MG; Start 01/04/19 at 21:00 Ondansetron HCl (Zofran Tab) 4 mg Q8H PRN PO NAUSEA AND/OR VOMITING Last administered on 01/04/19 21:29; Admin Dose 4 MG; Start 01/04/19 at 14:00 Pantoprazole (Protonix Tab) 40 mg AC BREAKFAST PO Last administered on 01/08/19 06:10; Admin Dose 40 MG; Start 01/05/19 at 07:00 Senna (Senokot) 2 tab QPM PO Last administered on 01/06/19 21:49; Admin Dose 2 TAB; Start 01/04/19 at 21:00 Trazodone HCl (Desyrel) 50 mg QHS PO Last administered on 01/07/19 20:01; Admin Dose 50 MG; Start 01/04/19 at 21:00 Apixaban (Eliquis) 2.5 mg BID PO Last administered on 01/08/19 09:32; Admin Dose 2.5 MG; Start 01/04/19 at 21:00 Albuterol/ Ipratropium (Duoneb) 3 ml Q6H RESP THERAPY PRN HHN SHORTNESS OF BREATH Last administered on 01/08/19 03:32; Admin Dose 3 ML; Start 01/04/19 at 15:00 IV Flush (NS 3 ml) 3 ml PER PROTOCOL IV ; Start 01/04/19 at 15:00 Ondansetron HCl (Zofran Inj) 4 mg Q6H PRN IV NAUSEA/VOMITING; Start 01/04/19 at 15:00 Acetaminophen (Tylenol Tab) 650 mg Q6H PRN PO .PAIN 1-3 OR TEMP; Start 01/04/19 at 15:00 Acetaminophen (Tylenol Supp) 650 mg Q6H PRN [place] .PAIN 1-3 OR TEMP; Start 01/04/19 at 15:00 Acetaminophen/ Hydrocodone Bitart ([place] (5/325)) 1 tab Q6H PRN PO .MOD PAIN 4- 6 Last administered on 01/06/19 15:19; Admin Dose 1 TAB; Start 01/04/19 at 15:00 Acetaminophen/ Hydrocodone Bitart ([place] (5/325)) 2 tab Q6H PRN PO .SEVERE PAIN 7-10 Last administered on 01/08/19at 09:47; Admin Dose 2 TAB; Start 01/04/19 at 15:00 Morphine Sulfate (morphine) 2 mg Q4H PRN IV .SEVERE PAIN 7-10 Last administered on 01/07/19 13:24; Admin Dose 2 MG; Start 01/04/19 at 15:00 Docusate Sodium (Colace) 100 mg Q12H PRN PO .CONSTIPATION; Start 01/04/19 at 15:00 Magnesium Hydroxide (Milk Of Mag) 30 ml DAILY PRN PO .CONSTIPATION; Start 01/04/19 at 15:00 Bisacodyl (Dulcolax Supp) 10 mg DAILY PRN [place] .CONSTIPATION; Start 01/04/19 at 15:00 Arformoterol Tartrate (Brovana (Neb)) 2 ml Q12H RESP THERAPY INH Last administered on 01/08/19 09:14; Admin Dose 2 ML; Start 01/04/19 at 20:00 Budesonide (Pulmicort (Neb)) 0.5 mg Q12H RESP THERAPY INH Last administered on 01/08/19 09:04; Admin Dose 0.5 MG; Start 01/04/19 at 20:00 Guaifenesin (Robitussin Liquid Cup) 200 mg Q4H PRN PO cough Last administered on 01/07/19 17:13; Admin Dose 200 MG; Start 01/05/19 at 13:30 Tramadol HCl (Ultram) 50 mg Q6H PRN PO MODERATE PAIN LEVEL 4-6; Start 01/05/19 at 16:00 Hydralazine HCl (Apresoline) 10 mg Q6H PRN IV ELEVATED SYSTOLIC BP Last administered on 01/08/19 03:02; Admin Dose 10 MG; Start 01/06/19 at 03:40 Albuterol/ Ipratropium (Duoneb) 3 ml Q6HWA RESP THERAPY INH Last administered on 01/08/19 13:07; Admin Dose 3 ML; Start 01/06/19 at 14:00 Hydralazine HCl (Apresoline) 25 mg TID PO Last administered on 01/08/19 14:15; Admin Dose 25 MG; Start 01/07/19 at 13:00 Levofloxacin (Levaquin) 750 mg Q48H PO ; Start 01/08/19 at 18:30 Benzonatate (Tessalon) 200 mg TID PRN PO cough Last administered on 01/07/19 20:08; Admin Dose 200 MG; Start 01/07/19 at 17:00 Sodium Chloride 1,000 ml @ 70 mls/hr [id number] IV Last administered on 01/08/19 12:27; Admin Dose 70 MLS/HR; Start 01/08/19 at 11:30 Methylprednisolone Sodium Succinate (Solu-Medrol) 40 mg Q8 IV Last administered on 01/08/19 14:16; Admin Dose 40 MG; Start 01/08/19 at 14:00 DAVID CHADWICK NP Jan 08, 2019 14:47
--- NOTE | 2019-01-08 16:37 | CONS ---
DATE OF ADMISSION: 01/05/2019 DATE OF CONSULTATION: TYPE OF CONSULTATION: Nephrology. REASON FOR CONSULTATION: Acute kidney injury. PROVIDER REQUESTING CONSULT: ____ HISTORY OF PRESENT ILLNESS: This is a 73-year-old female with a past medical history of COPD, questi onable history of CKD, history of AFib, status post pacemaker, history of TIA, history of depression, mood disorder, hypertension, dyslipidemia, who presented to [facility] for evaluat ion of pneumonia. The patient states that she was at a nursing facility when she started having shor tness of breath and cough of 3 days' duration. The patient was brought into the hospital. Upon arri aida, the patient has chest x-ray which showed evidence of patchy multifocal right greater than left i nfiltrate. The patient also has interstitial edema. She was placed on antibiotic therapy and admitt ed to med-surg. During the hospital course, the patient was seen by equity research associate, Dr. Cisneros and t isabel patient has CT scan which showed right hilar mass with postobstructive changes consistent with lynn oneal's history of nonsmall cell lung cancer. In patient's renal history on admission, the patient was noted to have a creatinine of 0.96 mg/dL. T he patient's creatinine has increased to 1.3 mg/dL. During this time, the patient was on ARB. The p atient has had hemodynamic fluctuations and has had poor oral intake. There has been no report of an y hemoptysis, hematemesis or hematochezia. PAST MEDICAL HISTORY: History of non-small cell lung cancer, history of AFib, history of COPD, histo ry of hypertension, history of paranoid disorder, history of dyslipidemia. PAST SURGICAL HISTORY: Status post pacemaker, history of hysterectomy. FAMILY HISTORY: No family history of kidney disease. SOCIAL HISTORY: History of smoking. MEDICATIONS: Have been reviewed. ALLERGIES: HAVE BEEN REVIEWED. REVIEW OF SYSTEMS: A 14-point review of systems conducted. Pertinent positives stated in HPI, other gonzales negative. PHYSICAL EXAMINATION: VITAL SIGNS: Blood pressure is 140/71, respiration 18, pulse 62, temperature 98.0. HEENT: Head is normocephalic. NECK: Supple. HEART: Regular rate. LUNGS: Show diminished breath sounds at the base. ABDOMEN: Soft, nontender to palpation without rebound or guarding. EXTREMITIES: Negative for clubbing, cyanosis. No edema. DERMATOLOGIC: No rashes. MUSCULOSKELETAL: No joint effusion. NEUROLOGIC: No focal deficits. LABORATORY DATA: From 01/08/2019 were reviewed. IMAGING STUDIES: Reviewed. ASSESSMENT AND PLAN: This is a 73-year-old female who presents with: 1. Nonoliguric acute kidney injury with previously normal baseline creatinine. Etiology of acute ki dney injury is likely multifactorial secondary to hemodynamics, ARB effect, questionable nephrotoxici ty from antibiotics. Lower suspicion for acute glomerulonephritis or vasculitis given patient's clin ical presentation and bland urinary sediment. Plan at this point is to repeat UA with microanalysis. Check renal ultrasound to rule out obstruction, although suspicion is low. We would discontinue AR B. Otherwise, continue supportive care, renally dose all meds. I agree with gentle course of IV hyd ration. 2. Anemia. Monitor hemoglobin and hematocrit levels. 3. Mild hyperkalemia. Etiology may be secondary to acute kidney injury and ARB effect. We will sta rt patient on low-potassium diet. We will hold ARB and monitor closely. 4. Mineral bone disorder. Monitor calcium and phosphorus levels. 5. Multifocal pneumonia. Continue current medical therapy. Continue breathing treatment with nebul izers, supplemental oxygen. 6. Right lung mass with previous history of nonsmall cell carcinoma. The patient has previous histo ry of chemotherapy and radiation. Continue to monitor. Consider oncology evaluation. 7. History of atrial fibrillation with pacemaker. Continue to monitor. Continue medical management . 8. Hypertension. Continue current blood pressure regimen. 9. History of depression. Continue Celexa. 10. Dyslipidemia. Continue statin therapy. 11. Gastroesophageal reflux disease. Continue Protonix. Thank you ____ for this interesting consult. It will be a pleasure to follow patient with dennis muro the hospital course. Dictated By: CARLYN DAS DO NR/NTS Conf#: [id number] DID#: [id number] CC: KRISTOFER JENKINS MD;*EndCC*
[2019-01-08] MEDS: LEVOFLOXACIN 750 MG TABLET PO SCH ×2 (17:31→17:36)
[2019-01-08 19:26] VITALS: BP 124/90; PULSE 72; RESP 18
[2019-01-08] MEDS ORDERED: IOHEXOL 14.3 MG(I)/ML (ADULT) BTL PO ONE (20:00)
[2019-01-08] MEDS: morphine 2 MG INJ IV PRN (20:03)
[2019-01-08] MEDS: ATORVASTATIN 80 MG TAB PO SCH (21:00)
[2019-01-08] MEDS: SENNA TAB PO SCH (21:00)
[2019-01-08] MEDS: traZODone 50 MG TAB PO SCH (21:00)
--- NOTE | 2019-01-08 23:51 | CONS ---
DATE OF ADMISSION: 01/05/2019 DATE OF CONSULTATION: 01/08/2019 TYPE OF CONSULTATION: Medical oncology. PHYSICIAN REQUESTING CONSULTATION: Scout Zepeda NP. REASON FOR CONSULTATION: Chest mass, history of lung cancer. Thank you very much for asking me to see this very pleasant patient in oncologic consultation. As yo u know, Ms. Santos is a 73-year-old female, who was admitted to [facility] from [facility] where the patient has been a resident. The patient is admitted at this time because of complaints of increasing cough and shortness of breat h. The patient states she has not had hemoptysis. There are no fevers, chills or night sweats. The patient does complain of some anterior chest pain as well, but this does not radiate to the neck, arm or back and seems to be related to cough. The chest x-ray had been done as an outpatient, which showed left side infiltrates and it was felt th at the patient perhaps had multifocal pneumonia. She was therefore admitted to [facility]. Since admission, the patient has undergone a CT scan of the chest. This was done without contrast. It reveals a large right upper lobe consolidative mass extending into the hilar area and superior med iastinal with no clear plane of differentiation. There is abrupt termination of the right upper lobe bronchus. There were air bronchograms within the mass and a small right-sided pleural effusion. Th ere are also subpleural densities. Left lung demonstrated prominent interstitium. A CT scan of the upper abdomen did not show any specific abnormalities other than calcified abdominal aorta. The patient is unable to give much history, but in her chart is included medical records from [facility] in [place] where the patient lived until August and September this year when her niece brought her to [facility]. Unfortunately, there is conflicting information in the chart. 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 This apparently was in 2016. T his was treated according to the patient with radiation therapy only. She did not have chemotherapy Another note in the chart from August of 2018, states that the patient had a right upper lobe non-sm all cell carcinoma of the lung and was treated with radiation therapy in July of 2017. Again, th ere was no history of chemotherapy. Other medical problems have included a history of chronic obstructive pulmonary disease. The patient also has had an arteriosclerotic cardiovascular disease with a history of atrial fibrillation. The patient has had a pacemaker in place and had asymptomatic bradycardia, which required replacement of the pacemaker in August of this year. 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 Other medical problems have included peripheral vascular disease and the patient has had iliac stents placed. She has also had a peptic ulcer disease as well as reflux, hypertension, CHF and lumbar rad iculopathy. SURGERIES IN THE PAST HAVE INCLUDED: Hysterectomy, appendectomy, bilateral lower extremity stents, v entral hernia repair and a diskectomy. SOCIAL HISTORY: She has mentioned, she moved to [facility] from [place] approximately 4 or 5 months ago. She presently is a resident at the [facility]. The patie nt has a smoking history with at least a 25-pack years. Previously, had been exposed to ionizing rad iation in the form of radiation therapy, but has not been exposed to chemotherapy and apparently has had no other toxic exposures. On admission, had a white count of 6900, hemoglobin 10, hematocrit 34.6 and platelet count 152,000. Absolute neutrophil count is 5100. On admission, comprehensive metabolic panel was normal except for potassium of 5.6 and BUN of 29. To tristin protein was 5.4 and albumin of 3.0. The total bilirubin was 0.5, direct bilirubin 0, AST 36, ALT 53, and alkaline phosphatase 57. Protime was 13.7 seconds, INR of 1.04, PTT 27.4 seconds. AT THE TIME OF ADMISSION, WAS TAKIN. Losartan 25 mg daily. 2. Trazodone 50 mg hours of sleep. 3. Risperidone 0.25 mg daily. 4. Atorvastatin 80 mg daily. 5. Carvedilol 12.5 mg daily. 6. Hydrocodone with acetaminophen 5/325 q.4 hours p.r.n. 7. Ondansetron 4 mg every 8 hours p.r.n. 8. Baclofen 10 mg 3 times a day p.r.n. 10. Gabapentin 300 mg daily. 11. Pantoprazole 40 mg daily. 12. Advair twice daily. 13. Apixaban 2.5 mg b.i.d. ALLERGIES: NO KNOWN ALLERGIES. PHYSICAL EXAMINATION: GENERAL: At this time reveals a well-developed, chronically ill-appearing female, who is in no acute distress, except for some feeling of bladder fullness and urgency. VITAL SIGNS: Temperature 99.2 orally, pulse 72 per minute and irregular, respirations 18 per minute, blood pressure 124/90 and pulse oximetry 93% on 2 liters of oxygen. HEENT: Normocephalic. No evidence of trauma. Pupils equal, round, reactive to light and accommodat ion. Sclerae are nonicteric. Oral mucosa is dry without lesions. Tongue is well papillated. No gi ngival hyperplasia, no hypertrophy of Waldeyer's ring. NECK: Supple. No jugular venous distention or thyroid enlargement. CHEST: There are decreased breath sounds bilaterally with more dullness to percussion on the right t linares on the left. There are no rubs. There is a pacemaker palpable in the left upper chest. BREASTS: Atrophic, no masses, skin retraction, nipple inversion. HEART: Irregularly irregular rate and rhythm. ABDOMEN: Mildly distended, but soft. There is some suprapubic fullness. No rebound tenderness. No obvious hepatomegaly. EXTREMITIES: No clubbing, edema or cyanosis. There are tattoos present on the patient's lower extre mities. No palpable cords or Homans sign. NEUROLOGIC: There is a left-sided hemiparesis. DISCUSSION: This patient has finding of a right-sided chest mass. She stated to have had a right up per lobe malignancy, which was treated with radiation therapy in 2017. The patient cannot tell me the histologic type. Unfortunately, there are notes from [facility] y does state this was a "small cell carcinoma, which was treated with "radiation" and notes a year la ter say that it was non-small cell carcinoma. Both states, the patient was treated with radiation th erapy only and the patient states this is also the case. If the patient does have recurrent malignancy, which seems likely, I feel it is important to determin e the histologic type. Both of the therapies for non-small cell carcinoma is different than that for small cell carcinoma. Certainly the history is more consistent with a non-small cell carcinoma than a small cell carcinoma. According to the present CT scan, the patient may be a candidate for a percutaneous needle biopsy of the right upper lobe mass. There is also a followup seen on CT scan at the right upper lobe bronchus . Perhaps a bronchoscopy would provide a diagnosis. I have taken the liberty of requesting a CEA. I have also requested a CT scan of the abdomen and pel vis to be done without contrast in order to determine if the patient does have any type of disease be low the diaphragm. If the patient is to have any type of invasive procedure, it will be necessary to discontinue the api xaban at least 2 days prior to any such procedure. Once again, thank you very much for the opportunity of participating in the medical care of this very pleasant patient. I will be happy to follow this patient with you and assist in her oncologic evalu ation and follow up as necessary. Dictated By: MARJ FUNG MD SR/NTS Conf#: [id number] DID#: [id number] CC: CARLYN DAS DO; KRISTOFER JENKINS MD;*EndCC*
[2019-01-09] MEDS: SOD CHLORIDE 0.9% 1,000 ML IV SCH ×2 (01:48→21:28)
[2019-01-09 02:00] VITALS: BP 180/98; PULSE 82; RESP 18
[2019-01-09] MEDS: morphine 2 MG INJ IV PRN ×2 (02:35→14:28)
[2019-01-09] MEDS: hydrALAzine 20 MG INJ IV PRN ×3 (02:40→19:49)
[2019-01-09] MEDS: LORAZEPAM 2 MG INJ IV PRN ×2 (03:20→21:21)
[2019-01-09] MEDS: METHYLPREDNISOLONE 40 MG INJ IV SCH ×3 (06:13→21:22)
[2019-01-09] MEDS: PANTOPRAZOLE (EC) 40 MG TAB PO SCH (06:13)
[2019-01-09 06:18] VITALS: BP 199/90; PULSE 73
[2019-01-09 07:56] VITALS: BP 120/85; PULSE 73; RESP 18
[2019-01-09] MEDS: ALBUTEROL/IPRATROPIUM (NEB) 3 ML AMP INH SCH ×3 (08:04→19:17)
[2019-01-09] MEDS: BUDESONIDE (NEB) 0.5MG/2ML AMP INH SCH ×2 (08:04→19:17)
[2019-01-09] MEDS: ARFORMOTEROL TARTRATE 15MCG/2 ML AMP INH SCH ×2 (08:10→19:17)
--- NOTE | 2019-01-09 11:08 | PN ---
DATE: 01/09/2019 SUBJECTIVE: The patient states that she is somewhat feeling better after having Santamaria catheter place d. The patient continues to have cough. She denies fevers or chills, no night sweats. OBJECTIVE: GENERAL: The patient is a well-developed, well-nourished, but chronically ill-appearing female in no acute distress. SKIN: Poor turgor. No ecchymosis, no petechiae or rashes. There are tattoos present. HEENT: Normocephalic. No evidence of trauma. Pupils equal, round, react to light and accommodation . Sclerae nonicteric. Oral mucosa is dry, but there are no lesions. NECK: Supple. No jugular venous distention or thyroid enlargement. CHEST: Decreased breath sounds on the right side with some dullness to percussion. There are no rub s. HEART: Irregularly irregular rate and rhythm, no murmurs are heard. ABDOMEN: Distended but no palpable masses. Bowel sounds are active. EXTREMITIES: No clubbing. No edema or cyanosis. No palpable cords or Homans sign. NEUROLOGIC: There is some left-sided hemiparesis. Sodium 138, potassium 4.6, BUN 35, creatinine 0.97. White count 6000 with an absolute neutrophil cou nt of 5200, hemoglobin 9.8, hematocrit 32.2 and platelet count 161,000. CEA is 7.4. ASSESSMENT: 1. Right upper lobe mass with reported history of lung cancer. Unsure if this was a small or large or nonsmall cell carcinoma. 2. Chronic obstructive pulmonary disease. 3. Arteriosclerotic cardiovascular disease with history of atrial fibrillation. 4. Pacemaker. 5. 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 6. Peripheral vascular disease with iliac artery stents placed. As noted, the patient does have a history of a carcinoma of the lung which apparently was treated wit h radiation therapy alone. This was in the late 2017. Unfortunately, there are conflicting notes fr om the [facility]. Earlier note states that this is a small cell carcinoma while a later note states this is a nonsmall cell carcinoma. As noted, this was treated only with radiation therapy. This would certainly be an unusual treatment for small cell carcinoma. The patient does have a mass now in the right upper lobe where the original lesion was reported to coughlin ve been found. If any treatment is planned it would certainly require a biopsy in order to determine the histology and therefore direct the appropriate therapy. It is unclear what family is interested in as far as progressing with workup and possible treatment. I had ordered a CT scan of the abdomen and pelvis. It is unclear that the patient will be able to co operate with this, even if it is done without oral or IV contrast. Dictated By: MARJ FUNG MD SR/NTS Conf#: [id number] DID#: [id number] CC: KRISTOFER JENKINS MD;*EndCC*
--- NOTE | 2019-01-09 11:18 | PN ---
Date/Time of Note Date/Time of Note DATE: 01/09/19 TIME: 11:15 Assessment/Plan VTE Prophylaxis Risk score (from Nsg)>0 risk: 6 SCD applied (from Nsg): Yes Pharmacological prophylaxis: NA/contraindicated Pharm contraindication: other (possible biopsy) Lines/Catheters IV Catheter Type (from Nrsg): Peripheral IV Urinary Cath still in place: Yes Reason Cath still needed: other (indicate) (monitor I&O) Assessment/Plan Hospital Course Assessment and plan 1. Multifocal pneumonia. - continue antibiotic. - O2 PRN. - breathing tx adjusted - continue CPT - steroid per pulmonary 2. Right lung mass per CT lung imaging -Discussed with family in the reported to me January 07, 2019 that patient did have biopsy at [facility] in [place]. Per family patient was already receiving chemotherapy and radiation however since the patient moved to [place] she has not been followed up for this. - oncologist following 2. Suspect history of A. fib with pacemaker. - Continue to monitor. - continue on Eliquis - may hold for possible biopsy - Patient beta-love resumed. - echo with preserved EF 3. COPD. - provide breathing treatments. - Continue O2. Titrate down as tolerated. 4. Essential hypertension. - continue antihypertensives. Will adjust as needed. 5. History of depression. - Continue on Celexa 6. History of paranoid disorder. - Continue on risperidone 7. Hyperlipidemia. - Continue on atorvastatin. 8. Suspect history of CAD. - continue on statin and ASA. 9. suspect history of GERD. - Continue Protonix. 10. Hyperkalemia - kayexalate prn 11. decubitus ulcer - continue wound care Dispo/Plan: reports difficulty breathing and is wheezing. continue breathing tx and steroid. plan for CT abd. will f/u. await for clinical improvement Discussed POC with Dr. Howard Result Diagram: 01/09/19 0700 01/09/19 0700 Results 24hrs Laboratory Tests Test 01/08/19 22:30 01/09/19 07:00 Urine Color YELLOW Urine Clarity SLIGHTLY CLOUDY A Urine pH 5.0 Urine Specific [place] 1.016 Urine Ketones NEGATIVE Urine Nitrite NEGATIVE Urine Bilirubin NEGATIVE Urine Urobilinogen NEGATIVE Urine Leukocyte Esterase NEGATIVE Urine Microscopic RBC 1 Urine Microscopic WBC 5 Urine Squamous Epithelial Cells FEW Urine Yeast (Budding) MODERATE A Urine Hemoglobin NEGATIVE Urine Random Creatinine 129.97 Urine Random Sodium 23 L Urine Glucose NEGATIVE Urine Total Protein 13.0 H White Blood Count 6.0 Red Blood Count 3.29 L Hemoglobin 9.8 L Hematocrit 32.2 L Mean Corpuscular Volume 97.9 Mean Corpuscular Hemoglobin 29.8 Mean Corpuscular Hemoglobin Concent 30.4 L Red Cell Distribution Width 16.1 H Platelet Count 161 Mean Platelet Volume 10.8 H Immature Granulocytes % 0.300 Neutrophils % 87.4 H Lymphocytes % 8.8 L Monocytes % 3.3 Eosinophils % 0.0 Basophils % 0.2 Nucleated Red Blood Cells % 0.0 Immature Granulocytes # 0.020 Neutrophils # 5.2 Lymphocytes # 0.5 L Monocytes # 0.2 L Eosinophils # 0.0 Basophils # 0.0 Nucleated Red Blood Cells # 0.0 Sodium Level 138 Potassium Level 4.8 Chloride Level 106 Carbon Dioxide Level 26 Anion Gap 6 Blood Urea Nitrogen 35 H Creatinine 0.97 Est Glomerular Filtrat Rate mL/min Glucose Level 131 # Calcium Level 9.0 Subjective 24 Hr Interval Summary Free Text/Dictation reports difficulty with breathing and has some wheezing. states she has some abdominal discomfort Exam/Review of Systems Exam Vitals Vital Signs Date Temp Pulse Resp B/P (MAP) Pulse Ox O2 O2 Flow FiO2 Time Delivery Rate 01/09/19 92 20 87 Nasal 2.0 08:04 Cannula 01/09/19 97.8 120/85 07:56 (97) 01/07/19 21 05:17 Intake and Output 01/08/19 01/08/19 01/09/19 1515:00 23:00 07:00 IntakeIntake Total 300 ml 800 ml OutputOutput Total 1 ml 300 ml BalanceBalance 299 ml -300 ml 800 ml Exam Constitutional: alert Psych: nl mood/affect Head: normocephalic Eyes: nl conjunctiva Neck: supple, non-tender Respiratory: congested cough, wheezing Cardiovascular: other (pacemaker in place, regular rate ) Gastrointestinal: soft, non-tender Neurological: nl speech Skin: other (decubitus ulcer sacral area ) Results Results 24hrs Laboratory Tests Test 01/08/19 22:30 01/09/19 07:00 Urine Color YELLOW Urine Clarity SLIGHTLY CLOUDY A Urine pH 5.0 Urine Specific [place] 1.016 Urine Ketones NEGATIVE Urine Nitrite NEGATIVE Urine Bilirubin NEGATIVE Urine Urobilinogen NEGATIVE Urine Leukocyte Esterase NEGATIVE Urine Microscopic RBC 1 Urine Microscopic WBC 5 Urine Squamous Epithelial Cells FEW Urine Yeast (Budding) MODERATE A Urine Hemoglobin NEGATIVE Urine Random Creatinine 129.97 Urine Random Sodium 23 L Urine Glucose NEGATIVE Urine Total Protein 13.0 H White Blood Count 6.0 Red Blood Count 3.29 L Hemoglobin 9.8 L Hematocrit 32.2 L Mean Corpuscular Volume 97.9 Mean Corpuscular Hemoglobin 29.8 Mean Corpuscular Hemoglobin Concent 30.4 L Red Cell Distribution Width 16.1 H Platelet Count 161 Mean Platelet Volume 10.8 H Immature Granulocytes % 0.300 Neutrophils % 87.4 H Lymphocytes % 8.8 L Monocytes % 3.3 Eosinophils % 0.0 Basophils % 0.2 Nucleated Red Blood Cells % 0.0 Immature Granulocytes # 0.020 Neutrophils # 5.2 Lymphocytes # 0.5 L Monocytes # 0.2 L Eosinophils # 0.0 Basophils # 0.0 Nucleated Red Blood Cells # 0.0 Sodium Level 138 Potassium Level 4.8 Chloride Level 106 Carbon Dioxide Level 26 Anion Gap 6 Blood Urea Nitrogen 35 H Creatinine 0.97 Est Glomerular Filtrat Rate mL/min Glucose Level 131 # Calcium Level 9.0 Medications Medication Current Medications Acetaminophen (Tylenol Tab) 650 mg Q6H PRN PO MILD PAIN LEVEL 1-3; Start 01/04/19 at 14:00 Amlodipine Besylate (Norvasc) 10 mg DAILY PO Last administered on 01/07/19 08:2 9; Admin Dose 10 MG; Start 01/05/19 at 09:00 Aspirin (Halfprin) 81 mg DAILY PO Last administered on 01/08/19 09:31; Admin Dose 81 MG; Start 01/05/19 at 09:00 Atorvastatin Calcium (Lipitor) 80 mg QHS PO Last administered on 01/07/19 20:01; Admin Dose 80 MG; Start 01/04/19 at 21:00 Baclofen (Lioresal) 10 mg TID PO Last administered on 01/08/19 14:16; Admin Dose 10 MG; Start 01/04/19 at 21:00 Bisacodyl (Dulcolax) 10 mg DAILY PRN PO CONSTIPATION; Start 01/04/19 at 14:00 Carvedilol (Coreg) 12.5 mg BID PO Last administered on 01/07/19 20:01; Admin Dose 12.5 MG; Start 01/04/19 at 21:00 Citalopram Hydrobromide (Celexa) 20 mg DAILY PO Last administered on 01/08/19 09:32; Admin Dose 20 MG; Start 01/05/19 at 09:00 Gabapentin (Neurontin) 300 mg TID PO Last administered on 01/08/19 14:15; Admin Dose 300 MG; Start 01/04/19 at 21:00 Ondansetron HCl (Zofran Tab) 4 mg Q8H PRN PO NAUSEA AND/OR VOMITING Last administered on 01/04/19 21:29; Admin Dose 4 MG; Start 01/04/19 at 14:00 Pantoprazole (Protonix Tab) 40 mg AC BREAKFAST PO Last administered on 01/08/19 06:10; Admin Dose 40 MG; Start 01/05/19 at 07:00 Senna (Senokot) 2 tab QPM PO Last administered on 01/06/19 21:49; Admin Dose 2 TAB; Start 01/04/19 at 21:00 Trazodone HCl (Desyrel) 50 mg QHS PO Last administered on 01/07/19 20:01; Admin Dose 50 MG; Start 01/04/19 at 21:00 Apixaban (Eliquis) 2.5 mg BID PO Last administered on 01/08/19 09:32; Admin Dose 2.5 MG; Start 01/04/19 at 21:00 Albuterol/ Ipratropium (Duoneb) 3 ml Q6H RESP THERAPY PRN HHN SHORTNESS OF BREATH Last administered on 01/08/19 03:32; Admin Dose 3 ML; Start 01/04/19 at 15:00 IV Flush (NS 3 ml) 3 ml PER PROTOCOL IV ; Start 01/04/19 at 15:00 Ondansetron HCl (Zofran Inj) 4 mg Q6H PRN IV NAUSEA/VOMITING; Start 01/04/19 at 15:00 Acetaminophen (Tylenol Tab) 650 mg Q6H PRN PO .PAIN 1-3 OR TEMP; Start 01/04/19 at 15:00 Acetaminophen (Tylenol Supp) 650 mg Q6H PRN [place] .PAIN 1-3 OR TEMP; Start 01/04/19 at 15:00 Acetaminophen/ Hydrocodone Bitart ([place] (5/325)) 1 tab Q6H PRN PO .MOD PAIN 4- 6 Last administered on 01/06/19 15:19; Admin Dose 1 TAB; Start 01/04/19 at 15:00 Acetaminophen/ Hydrocodone Bitart ([place] (5/325)) 2 tab Q6H PRN PO .SEVERE PAIN 7-10 Last administered on 01/08/19 09:47; Admin Dose 2 TAB; Start 01/04/19 at 15:00 Morphine Sulfate (morphine) 2 mg Q4H PRN IV .SEVERE PAIN 7-10 Last administered on 01/09/19 02:35; Admin Dose 2 MG; Start 01/04/19 at 15:00 Docusate Sodium (Colace) 100 mg Q12H PRN PO .CONSTIPATION; Start 01/04/19 at 15:00 Magnesium Hydroxide (Milk Of Mag) 30 ml DAILY PRN PO .CONSTIPATION; Start 01/04/19 at 15:00 Bisacodyl (Dulcolax Supp) 10 mg DAILY PRN [place] .CONSTIPATION; Start 01/04/19 at 15:00 Arformoterol Tartrate (Brovana (Neb)) 2 ml Q12H RESP THERAPY INH Last administered on 01/09/19 08:10; Admin Dose 2 ML; Start 01/04/19 at 20:00 Budesonide (Pulmicort (Neb)) 0.5 mg Q12H RESP THERAPY INH Last administered on 01/09/19 08:04; Admin Dose 0.5 MG; Start 01/04/19 at 20:00 Guaifenesin (Robitussin Liquid Cup) 200 mg Q4H PRN PO cough Last administered on 01/07/19 17:13; Admin Dose 200 MG; Start 01/05/19 at 13:30 Tramadol HCl (Ultram) 50 mg Q6H PRN PO MODERATE PAIN LEVEL 4-6; Start 01/05/19 at 16:00 Albuterol/ Ipratropium (Duoneb) 3 ml Q6HWA RESP THERAPY INH Last administered on 01/09/19 08:04; Admin Dose 3 ML; Start 01/06/19 at 14:00 Hydralazine HCl (Apresoline) 25 mg TID PO Last administered on 01/08/19 14:15; Admin Dose 25 MG; Start 01/07/19 at 13:00 Levofloxacin (Levaquin) 750 mg Q48H PO ; Start 01/08/19 at 18:30 Benzonatate (Tessalon) 200 mg TID PRN PO cough Last administered on 01/07/19at 20:08; Admin Dose 200 MG; Start 01/07/19 at 17:00 Sodium Chloride 1,000 ml @ 40 mls/hr Q24H IV Last administered on 01/08/19at 12:27; Admin Dose 70 MLS/HR; Start 01/08/19 at 11:30 Methylprednisolone Sodium Succinate (Solu-Medrol) 40 mg Q8 IV Last administered on 01/09/19 06:13; Admin Dose 40 MG; Start 01/08/19 at 14:00 Lorazepam (Ativan) 0.5 mg Q12H PRN IV INSOMNIA Last administered on 01/09/19 03:20; Admin Dose 0.5 MG; Start 01/09/19 at 03:30 Hydralazine HCl (Apresoline) 10 mg Q4H PRN IV ELEVATED SYSTOLIC BP Last administered on 01/09/19 06:26; Admin Dose 10 MG; Start 01/09/19 at 06:22 DAVID CHADWICK NP Jan 09, 2019 11:18
[2019-01-09] MEDS: GABAPENTIN 300 MG CAP PO SCH ×3 (11:19→21:15)
[2019-01-09] MEDS: APIXABAN 5 MG TABLET PO SCH ×2 (11:19→21:12)
[2019-01-09] MEDS: ASPIRIN (EC) 81 MG TAB PO SCH (11:19)
[2019-01-09] MEDS: BACLOFEN 10 MG TAB PO SCH ×3 (11:20→21:12)
[2019-01-09] MEDS: CITALOPRAM 20 MG TAB PO SCH (11:21)
[2019-01-09] MEDS: AMLODIPINE 10 MG TAB PO SCH (11:21)
[2019-01-09] MEDS: BALSAM PERU/CASTOR OIL 60 GM TUBE TOP SCH (11:22)
--- NOTE | 2019-01-09 13:25 | PN ---
DATE: 01/09/2019 SUBJECTIVE: The patient is stable. No events overnight. No fevers, chills, nausea or vomiting. OBJECTIVE: VITAL SIGNS: Blood pressure is 120/85, respiration 18, pulse 73, temperature 97.8. HEENT: Head is normocephalic. NECK: Supple. HEART: Regular rate. LUNGS: Show diminished breath sounds at base. ABDOMEN: Soft, nontender to palpation. No rebound or guarding. EXTREMITIES: Negative for clubbing, cyanosis, no edema. DERMATOLOGIC: No rashes. MUSCULOSKELETAL: No joint effusion. NEUROLOGIC: No change in exam. MEDICATIONS: Have been reviewed. LABORATORY DATA: Has been reviewed. ASSESSMENT AND PLAN: 1. Nonoliguric acute kidney injury with previously normal baseline creatinine. Etiology is secondar y to hemodynamics, volume depletion, ARB effect. The patient's urinalysis shows FENa less than 1%, c onsistent with prerenal etiology. Renal function has improved with a course of IV hydration. At thi s point, continue current treatment plan, supportive care, renally dose all meds. cleared IV f luids, monitor closely. 2. Anemia. Continue to monitor hemoglobin and hematocrit levels. 3. Mild hyperkalemia, resolved. Continue to monitor. 4. Mineral bone disorder. Monitor calcium and phosphorus levels. 5. Multifocal pneumonia. Continue current antibiotic regimen. 6. Right lung mass with previous history of nonsmall cell carcinoma. The patient has a previous his tory of chemotherapy and radiation. Continue to monitor. 7. History of atrial fibrillation with pacemaker. Continue to monitor. 7. Hypertension. Continue current blood pressure regimen. 8. History of depression. Continue Celexa. 9. Dyslipidemia. Continue statin therapy. 10. Gastroesophageal reflux disease. Continue Protonix. Dictated By: CARLYN DAS DO NR/NTS Conf#: [id number] DID#: [id number] CC: KRISTOFER JENKINS MD;*End*
[2019-01-09 14:00] VITALS: PULSE 76; RESP 18
[2019-01-09] MEDS: GUAIFENESIN 20 MG/ML 5ML CUP PO PRN (15:26)
[2019-01-09 19:40] VITALS: BP 203/91; PULSE 76; RESP 16
[2019-01-09] MEDS: SENNA TAB PO SCH (21:12)
[2019-01-09] MEDS: ATORVASTATIN 80 MG TAB PO SCH (21:12)
[2019-01-09] MEDS: traZODone 50 MG TAB PO SCH (21:14)
[2019-01-10 02:00] VITALS: BP 124/82; PULSE 65; RESP 18
[2019-01-10] MEDS: HYDROCODONE/APAP (5/325) TAB PO PRN ×3 (03:48→19:39)
[2019-01-10] MEDS: morphine 2 MG INJ IV PRN (04:44)
[2019-01-10] MEDS: ALBUTEROL/IPRATROPIUM (NEB) 3 ML AMP HHN PRN ×3 (05:09→16:15)
[2019-01-10] MEDS: METHYLPREDNISOLONE 40 MG INJ IV SCH ×3 (06:12→22:00)
[2019-01-10] MEDS: PANTOPRAZOLE (EC) 40 MG TAB PO SCH (06:12)
[2019-01-10] MEDS: ALBUTEROL/IPRATROPIUM (NEB) 3 ML AMP INH SCH ×3 (08:00→19:43)
[2019-01-10] MEDS: BUDESONIDE (NEB) 0.5MG/2ML AMP INH SCH ×2 (08:00→19:43)
[2019-01-10] MEDS: ARFORMOTEROL TARTRATE 15MCG/2 ML AMP INH SCH ×2 (08:00→19:43)
[2019-01-10] MEDS: hydrALAzine 20 MG INJ IV PRN (08:23)
[2019-01-10 08:43] VITALS: BP 237/109; PULSE 75; RESP 16
[2019-01-10] MEDS: CITALOPRAM 20 MG TAB PO SCH (09:04)
[2019-01-10] MEDS: AMLODIPINE 10 MG TAB PO SCH (09:05)
[2019-01-10] MEDS: BACLOFEN 10 MG TAB PO SCH ×3 (09:05→21:07)
[2019-01-10] MEDS: ASPIRIN (EC) 81 MG TAB PO SCH (09:05)
[2019-01-10] MEDS: APIXABAN 5 MG TABLET PO SCH ×2 (09:05→21:08)
[2019-01-10] MEDS: GABAPENTIN 300 MG CAP PO SCH ×3 (09:05→21:07)
[2019-01-10] MEDS: BALSAM PERU/CASTOR OIL 60 GM TUBE TOP SCH (09:06)
--- NOTE | 2019-01-10 09:20 | CONS ---
Assessment/Plan Assessment/Plan Assessment/Plan (Daily) Assessment and recommendations; 1. Patient with history of COPD admitted for COPD exacerbation with mild interval improvement. 2. Acute bronchitis. 3. History of right upper lobe non-small cell lung cancer. 4. History of cardiac arrhythmia, status post pacemaker placement in the past. 5. Mild acute renal insufficiency with normalization of renal function. 6. Hypertension. Continue current supportive care. Continue Solu-Medrol dosing at current rate. Consultation Date/Type/Reason Admit Date/Time Jan 04, 2019 at 13:27 Initial Consult Date Type of Consult Pulmonary Patient is complaining of mild wheezing. Denies any chest pain, complains of mild cough without any hemoptysis or sputum production. General exam; elderly woman, awake alert, currently in no distress. Date/Time of Note DATE: 01/10/19 TIME: 09:18 24 HR Interval Summary Free Text/Dictation Patient's condition is slightly improved. Still complains of mild cough and wheezing. General exam; elderly female, awake alert, currently in no distress. Exam/Review of Systems Exam Vitals Vital Signs Date Temp Pulse Resp B/P (MAP) Pulse Ox O2 O2 Flow FiO2 Time Delivery Rate 01/10/19 98.3 75 16 237/109 98 Room Air 08:43 (151) 01/10/19 3.0 05:12 01/07/19 21 05:17 Intake and Output 01/09/19 01/09/19 01/10/19 1515:00 23:00 07:00 IntakeIntake Total 120 ml OutputOutput Total 600 ml 1000 ml BalanceBalance -600 ml -880 ml Exam H EENT exam; supple neck, no JVD. No lymphadenopathy. Midline trachea. No thyromegaly. Patient is edentulous. Chest exam; diminished breath sounds bilaterally with mild expiratory wheezing. S1-S2 audible, no murmurs. Pacemaker in left chest wall. Abdomen exam; soft, nontender. No organomegaly. Bowel sounds audible. Extremity exam; no peripheral edema clubbing. PRINTING AGENT exam; no focal deficit. Results Result Diagram: 01/10/19 0708 01/09/19 0700 Results 24hrs Laboratory Tests Test 01/10/19 07:08 White Blood Count 5.1 Red Blood Count 3.47 L Hemoglobin 10.3 L Hematocrit 33.6 L Mean Corpuscular Volume 96.8 Mean Corpuscular Hemoglobin 29.7 Mean Corpuscular Hemoglobin Concent 30.7 L Red Cell Distribution Width 16.7 H Platelet Count 149 Mean Platelet Volume 10.9 H Immature Granulocytes % 0.600 H Neutrophils % 80.4 H Lymphocytes % 7.8 L Monocytes % 11.2 H Eosinophils % 0.0 Basophils % 0.0 Nucleated Red Blood Cells % 0.0 Immature Granulocytes # 0.030 Neutrophils # 4.1 Lymphocytes # 0.4 L Monocytes # 0.6 Eosinophils # 0.0 Basophils # 0.0 Nucleated Red Blood Cells # 0.0 Medications Medication Current Medications Acetaminophen (Tylenol Tab) 650 mg Q6H PRN PO MILD PAIN LEVEL 1-3; Start 01/04/19 at 14:00 Amlodipine Besylate (Norvasc) 10 mg DAILY PO Last administered on 01/09/19 11:21; Admin Dose 10 MG; Start 01/05/19 at 09:00 Aspirin (Halfprin) 81 mg DAILY PO Last administered on 01/09/19 11:19; Admin Dose 81 MG; Start 01/05/19 at 09:00 Atorvastatin Calcium (Lipitor) 80 mg QHS PO Last administered on 01/09/19 21:12; Admin Dose 80 MG; Start 01/04/19 at 21:00 Baclofen (Lioresal) 10 mg TID PO Last administered on 01/09/19 21:12; Admin Dose 10 MG; Start 01/04/19 at 21:00 Bisacodyl (Dulcolax) 10 mg DAILY PRN PO CONSTIPATION; Start 01/04/19 at 14:00 Carvedilol (Coreg) 12.5 mg BID PO Last administered on 01/09/19 21:14; Admin D ose 12.5 MG; Start 01/04/19 at 21:00 Citalopram Hydrobromide (Celexa) 20 mg DAILY PO Last administered on 01/09/19 11:21; Admin Dose 20 MG; Start 01/05/19 at 09:00 Gabapentin (Neurontin) 300 mg TID PO Last administered on 01/09/19 21:15; Admin Dose 300 MG; Start 01/04/19 at 21:00 Ondansetron HCl (Zofran Tab) 4 mg Q8H PRN PO NAUSEA AND/OR VOMITING Last administered on 01/04/19 21:29; Admin Dose 4 MG; Start 01/04/19 at 14:00 Pantoprazole (Protonix Tab) 40 mg AC BREAKFAST PO Last administered on 06:12; Admin Dose 40 MG; Start 01/05/19 at 07:00 Senna (Senokot) 2 tab QPM PO Last administered on 01/09/19 21:12; Admin Dose 2 TAB; Start 01/04/19 at 21:00 Trazodone HCl (Desyrel) 50 mg QHS PO Last administered on 01/09/19 21:14; Admin Dose 50 MG; Start 01/04/19 at 21:00 Apixaban (Eliquis) 2.5 mg BID PO Last administered on 01/09/19 21:12; Admin Dose 2.5 MG; Start 01/04/19 at 21:00 Albuterol/ Ipratropium (Duoneb) 3 ml Q6H RESP THERAPY PRN HHN SHORTNESS OF BREATH Last administered on 01/10/19 05:09; Admin Dose 3 ML; Start 01/04/19 at 15:00 IV Flush (NS 3 ml) 3 ml PER PROTOCOL IV ; Start 01/04/19 at 15:00 Ondansetron HCl (Zofran Inj) 4 mg Q6H PRN IV NAUSEA/VOMITING; Start 01/04/19 at 15:00 Acetaminophen (Tylenol Tab) 650 mg Q6H PRN PO .PAIN 1-3 OR TEMP; Start 01/04/19 at 15:00 Acetaminophen (Tylenol Supp) 650 mg Q6H PRN [place] .PAIN 1-3 OR TEMP; Start 01/04/19 at 15:00 Acetaminophen/ Hydrocodone Bitart ([place] (5/325)) 1 tab Q6H PRN PO .MOD PAIN 4- 6 Last administered on 01/10/19 03:48; Admin Dose 1 TAB; Start 01/04/19 at 15:00 Acetaminophen/ Hydrocodone Bitart ([place] (5/325)) 2 tab Q6H PRN PO .SEVERE PAIN 7-10 Last administered on 01/08/19 09:47; Admin Dose 2 TAB; Start 01/04/19 at 15:00 Morphine Sulfate (morphine) 2 mg Q4H PRN IV .SEVERE PAIN 7-10 Last administered on 01/10/19 04:44; Admin Dose 2 MG; Start 01/04/19 at 15:00 Docusate Sodium (Colace) 100 mg Q12H PRN PO .CONSTIPATION; Start 01/04/19 at 15:00 Magnesium Hydroxide (Milk Of Mag) 30 ml DAILY PRN PO .CONSTIPATION; Start 01/04/19 at 15:00 Bisacodyl (Dulcolax Supp) 10 mg DAILY PRN [place] .CONSTIPATION; Start 01/04/19 at 15:00 Arformoterol Tartrate (Brovana (Neb)) 2 ml Q12H RESP THERAPY INH Last administered on 01/09/19 19:17; Admin Dose 2 ML; Start 01/04/19 at 20:00 Budesonide (Pulmicort (Neb)) 0.5 mg Q12H RESP THERAPY INH Last administered on 01/09/19 19:17; Admin Dose 0.5 MG; Start 01/04/19 at 20:00 Guaifenesin (Robitussin Liquid Cup) 200 mg Q4H PRN PO cough Last administered on 01/09/19 15:26; Admin Dose 200 MG; Start 01/05/19 at 13:30 Tramadol HCl (Ultram) 50 mg Q6H PRN PO MODERATE PAIN LEVEL 4-6; Start 01/05/19 at 16:00 Albuterol/ Ipratropium (Duoneb) 3 ml Q6HWA RESP THERAPY INH Last administered on 01/09/19 19:17; Admin Dose 3 ML; Start 01/06/19 at 14:00 Hydralazine HCl (Apresoline) 25 mg TID PO Last administered on 01/09/19 21:13; Admin Dose 25 MG; Start 01/07/19 at 13:00 Levofloxacin (Levaquin) 750 mg Q48H PO ; Start 01/08/19 at 18:30 Benzonatate (Tessalon) 200 mg TID PRN PO cough Last administered on 01/07/19 20:08; Admin Dose 200 MG; Start 01/07/19 at 17:00 Sodium Chloride 1,000 ml @ 40 mls/hr Q24H IV Last administered on 01/08/19 12:27; Admin Dose 70 MLS/HR; Start 01/08/19 at 11:30 Methylprednisolone Sodium Succinate (Solu-Medrol) 40 mg Q8 IV Last administered on 01/10/19at 06:12; Admin Dose 40 MG; Start 01/08/19 at 14:00 Lorazepam (Ativan) 0.5 mg Q12H PRN IV INSOMNIA Last administered on 01/09/19 21:21; Admin Dose 0.5 MG; Start 01/09/19 at 03:30 Hydralazine HCl (Apresoline) 10 mg Q4H PRN IV ELEVATED SYSTOLIC BP Last administered on 01/10/19at 08:23; Admin Dose 10 MG; Start 01/09/19 at 06:22 JEAN PAUL COPELAND Jan 10, 2019 09:20
--- NOTE | 2019-01-10 09:37 | PN ---
DATE: 01/10/2019 SUBJECTIVE: The patient is stable. No events overnight. OBJECTIVE: VITAL SIGNS: Blood pressure is 124/82, respiration 18, pulse 64, temperature 97.6. HEENT: Head is normocephalic. NECK: Supple. HEART: Regular rate. LUNGS: Show diminished breath sounds at base. ABDOMEN: Soft, nontender to palpation without rebound or guarding. EXTREMITIES: Negative for clubbing, cyanosis, no edema. DERMATOLOGIC: No rashes. MUSCULOSKELETAL: No joint effusions. NEUROLOGIC: No change in exam. MEDICATIONS: Reviewed. LABORATORY DATA: Has been reviewed. Laboratory data from 01/10/2019 is pending. ASSESSMENT AND PLAN: 1. Nonoliguric acute kidney injury with previously normal baseline creatinine. Etiology of acute ki dney injury is secondary to hemodynamics, volume depletion. The patient's renal function has been im proving with gentle IV hydration. Follow up renal panel today. If renal function is improved, would discontinue IV fluids, monitor closely. 2. Anemia. Continue to monitor hemoglobin and hematocrit levels. 3. Mild hyperkalemia, resolved. 4. Mineral bone disorder, monitor calcium and phosphorus levels. 5. Multifocal pneumonia. Continue current antibiotic therapy. 6. Right lung mass with history of nonsmall cell carcinoma. The patient has a history of chemothera py and radiation. Continue to follow with oncology. 7. History of atrial fibrillation with pacemaker. Continue to monitor. 8. Hypertension. Continue current blood pressure regimen. 9. History of depression. Continue Celexa. 10. Dyslipidemia. Continue statin therapy. 11. Gastroesophageal reflux disease. Continue Protonix. Dictated By: CARLYN DAS DO NR/NTS Conf#: [id number] DID#: [id number] CC: KRISTOFER JENKINS MD;*EndCC*
[2019-01-10 10:00] VITALS: BP 127/70; PULSE 80
--- NOTE | 2019-01-10 10:07 | PN ---
Date/Time of Note Date/Time of Note DATE: 01/10/19 TIME: 10:04 Assessment/Plan VTE Prophylaxis Risk score (from Nsg)>0 risk: 4 SCD applied (from Nsg): Yes Pharmacological prophylaxis: apixaban Lines/Catheters IV Catheter Type (from Nrsg): Peripheral IV Urinary Cath still in place: Yes Reason Cath still needed: other (indicate) (monitor I&O) Assessment/Plan Hospital Course Assessment and plan 1. Multifocal pneumonia. - continue antibiotic. - O2 PRN. - breathing tx adjusted - continue CPT - steroid per pulmonary 2. Right lung mass per CT lung imaging -Discussed with family in the reported to me January 07, 2019 that patient did have biopsy at [facility] in [place]. Per family patient was already receiving chemotherapy and radiation however since the patient moved to [place] she has not been followed up for this. - oncologist following 2. Suspect history of A. fib with pacemaker. - Continue to monitor. - continue on Eliquis - may hold for possible biopsy - Patient beta-love resumed. - echo with preserved EF 3. COPD. - provide breathing treatments. - Continue O2. Titrate down as tolerated. 4. Essential hypertension. - continue antihypertensives. Will adjust as needed. 5. History of depression. - Continue on Celexa 6. History of paranoid disorder. - Continue on risperidone 7. Hyperlipidemia. - Continue on atorvastatin. 8. Suspect history of CAD. - continue on statin and ASA. 9. suspect history of GERD. - Continue Protonix. 10. Hyperkalemia - kayexalate prn 11. decubitus ulcer - continue wound care Dispo/Plan: appears to be improving. plan for snf placement. possible DC today if cleared by consults. will f/u Discussed POC with Dr. Howard Result Diagram: 01/10/19 0708 01/10/19 0708 Results 24hrs Laboratory Tests Test 01/10/19 07:08 White Blood Count 5.1 Red Blood Count 3.47 L Hemoglobin 10.3 L Hematocrit 33.6 L Mean Corpuscular Volume 96.8 Mean Corpuscular Hemoglobin 29.7 Mean Corpuscular Hemoglobin Concent 30.7 L Red Cell Distribution Width 16.7 H Platelet Count 149 Mean Platelet Volume 10.9 H Immature Granulocytes % 0.600 H Neutrophils % 80.4 H Lymphocytes % 7.8 L Monocytes % 11.2 H Eosinophils % 0.0 Basophils % 0.0 Nucleated Red Blood Cells % 0.0 Immature Granulocytes # 0.030 Neutrophils # 4.1 Lymphocytes # 0.4 L Monocytes # 0.6 Eosinophils # 0.0 Basophils # 0.0 Nucleated Red Blood Cells # 0.0 Sodium Level 138 Potassium Level 4.8 Chloride Level 105 Carbon Dioxide Level 26 Anion Gap 7 Blood Urea Nitrogen 35 H Creatinine 0.84 Est Glomerular Filtrat Rate mL/min Glucose Level 140 Calcium Level 9.1 Subjective 24 Hr Interval Summary Free Text/Dictation appears to be breathing much better. no s/s of distress Exam/Review of Systems Exam Vitals Vital Signs Date Temp Pulse Resp B/P (MAP) Pulse Ox O2 O2 Flow FiO2 Time Delivery Rate 01/10/19 98.3 75 16 237/109 98 Room Air 08:43 (151) 01/10/19 3.0 05:12 01/07/19 21 05:17 Intake and Output 01/09/19 01/09/19 01/10/19 1515:00 23:00 07:00 IntakeIntake Total 120 ml OutputOutput Total 600 ml 1000 ml BalanceBalance -600 ml -880 ml Exam Constitutional: alert Psych: nl mood/affect Head: normocephalic Eyes: nl conjunctiva Neck: supple, non-tender Respiratory: congested cough, wheezing Cardiovascular: other (hx pacemaker , regular rate ) Gastrointestinal: soft, non-tender Neurological: nl speech Skin: other (decubitus ulcer sacral area ) Results Results 24hrs Laboratory Tests Test 01/10/19 07:08 White Blood Count 5.1 Red Blood Count 3.47 L Hemoglobin 10.3 L Hematocrit 33.6 L Mean Corpuscular Volume 96.8 Mean Corpuscular Hemoglobin 29.7 Mean Corpuscular Hemoglobin Concent 30.7 L Red Cell Distribution Width 16.7 H Platelet Count 149 Mean Platelet Volume 10.9 H Immature Granulocytes % 0.600 H Neutrophils % 80.4 H Lymphocytes % 7.8 L Monocytes % 11.2 H Eosinophils % 0.0 Basophils % 0.0 Nucleated Red Blood Cells % 0.0 Immature Granulocytes # 0.030 Neutrophils # 4.1 Lymphocytes # 0.4 L Monocytes # 0.6 Eosinophils # 0.0 Basophils # 0.0 Nucleated Red Blood Cells # 0.0 Sodium Level 138 Potassium Level 4.8 Chloride Level 105 Carbon Dioxide Level 26 Anion Gap 7 Blood Urea Nitrogen 35 H Creatinine 0.84 Est Glomerular Filtrat Rate mL/min Glucose Level 140 Calcium Level 9.1 Medications Medication Current Medications Acetaminophen (Tylenol Tab) 650 mg Q6H PRN PO MILD PAIN LEVEL 1-3; Start 01/04/19 at 14:00 Amlodipine Besylate (Norvasc) 10 mg DAILY PO Last administered on 01/10/19 09:05; Admin Dose 10 MG; Start 01/05/19 at 09:00 Aspirin (Halfprin) 81 mg DAILY PO Last administered on 01/10/19 09:05; Admin Dose 81 MG; Start 01/05/19 at 09:00 Atorvastatin Calcium (Lipitor) 80 mg QHS PO Last administered on 01/09/19 21:12; Admin Dose 80 MG; Start 01/04/19 at 21:00 Baclofen (Lioresal) 10 mg TID PO Last administered on 01/10/19 09:05; Admin Dose 10 MG; Start 01/04/19 at 21:00 Bisacodyl (Dulcolax) 10 mg DAILY PRN PO CONSTIPATION; Start 01/04/19 at 14:00 Citalopram Hydrobromide (Celexa) 20 mg DAILY PO Last administered on 01/10/19 09:04; Admin Dose 20 MG; Start 01/05/19 at 09:00 Gabapentin (Neurontin) 300 mg TID PO Last administered on 01/10/19 09:05; Admin Dose 300 MG; Start 01/04/19 at 21:00 Ondansetron HCl (Zofran Tab) 4 mg Q8H PRN PO NAUSEA AND/OR VOMITING Last administered on 01/04/19 21:29; Admin Dose 4 MG; Start 01/04/19 at 14:00 Pantoprazole (Protonix Tab) 40 mg AC BREAKFAST PO Last administered on 01/10/19 06:12; Admin Dose 40 MG; Start 01/05/19 at 07:00 Senna (Senokot) 2 tab QPM PO Last administered on 01/09/19 21:12; Admin Dose 2 TAB; Start 01/04/19 at 21:00 Trazodone HCl (Desyrel) 50 mg QHS PO Last administered on 6/7/19at 21:14; Admin Dose 50 MG; Start 01/04/19 at 21:00 Apixaban (Eliquis) 2.5 mg BID PO Last administered on 01/10/19at 09:05; Admin Dose 2.5 MG; Start 01/04/19 at 21:00 Albuterol/ Ipratropium (Duoneb) 3 ml Q6H RESP THERAPY PRN HHN SHORTNESS OF BREATH Last administered on 01/10/19 05:09; Admin Dose 3 ML; Start 01/04/19 at 15:00 IV Flush (NS 3 ml) 3 ml PER PROTOCOL IV ; Start 01/04/19 at 15:00 Ondansetron HCl (Zofran Inj) 4 mg Q6H PRN IV NAUSEA/VOMITING; Start 01/04/19 at 15:00 Acetaminophen (Tylenol Tab) 650 mg Q6H PRN PO .PAIN 1-3 OR TEMP; Start 01/04/19 at 15:00 Acetaminophen (Tylenol Supp) 650 mg Q6H PRN [place] .PAIN 1-3 OR TEMP; Start 01/04/19 at 15:00 Acetaminophen/ Hydrocodone Bitart ([place] (5/325)) 1 tab Q6H PRN PO .MOD PAIN 4- 6 Last administered on 01/10/19at 09:13; Admin Dose 1 TAB; Start 01/04/19 at 15:00 Acetaminophen/ Hydrocodone Bitart ([place] (5/325)) 2 tab Q6H PRN PO .SEVERE PAIN 7-10 Last administered on 01/08/19at 09:47; Admin Dose 2 TAB; Start 01/04/19 at 15:00 Morphine Sulfate (morphine) 2 mg Q4H PRN IV .SEVERE PAIN 7-10 Last administered on 01/10/19at 04:44; Admin Dose 2 MG; Start 01/04/19 at 15:00 Docusate Sodium (Colace) 100 mg Q12H PRN PO .CONSTIPATION; Start 01/04/19 at 15:00 Magnesium Hydroxide (Milk Of Mag) 30 ml DAILY PRN PO .CONSTIPATION; Start 01/04/19 at 15:00 Bisacodyl (Dulcolax Supp) 10 mg DAILY PRN [place] .CONSTIPATION; Start 01/04/19 at 15:00 Arformoterol Tartrate (Brovana (Neb)) 2 ml Q12H RESP THERAPY INH Last administered on 01/09/19 19:17; Admin Dose 2 ML; Start 01/04/19 at 20:00 Budesonide (Pulmicort (Neb)) 0.5 mg Q12H RESP THERAPY INH Last administered on 01/09/19 19:17; Admin Dose 0.5 MG; Start 01/04/19 at 20:00 Guaifenesin (Robitussin Liquid Cup) 200 mg Q4H PRN PO cough Last administered on 01/09/19 15:26; Admin Dose 200 MG; Start 01/05/19 at 13:30 Tramadol HCl (Ultram) 50 mg Q6H PRN PO MODERATE PAIN LEVEL 4-6; Start 01/05/19 at 16:00 Albuterol/ Ipratropium (Duoneb) 3 ml Q6HWA RESP THERAPY INH Last administered on 01/09/19 19:17; Admin Dose 3 ML; Start 01/06/19 at 14:00 Hydralazine HCl (Apresoline) 25 mg TID PO Last administered on 01/10/19 09:04; Admin Dose 25 MG; Start 01/07/19 at 13:00 Levofloxacin (Levaquin) 750 mg Q48H PO ; Start 01/08/19 at 18:30 Benzonatate (Tessalon) 200 mg TID PRN PO cough Last administered on 01/07/19 20:08; Admin Dose 200 MG; Start 01/07/19 at 17:00 Sodium Chloride 1,000 ml @ 40 mls/hr Q24H IV Last administered on 01/08/19 12:27; Admin Dose 70 MLS/HR; Start 01/08/19 at 11:30 Methylprednisolone Sodium Succinate (Solu-Medrol) 40 mg Q8 IV Last administered on 01/10/19 06:12; Admin Dose 40 MG; Start 01/08/19 at 14:00 Lorazepam (Ativan) 0.5 mg Q12H PRN IV INSOMNIA Last administered on 01/09/19 21:21; Admin Dose 0.5 MG; Start 01/09/19 at 03:30 Hydralazine HCl (Apresoline) 10 mg Q4H PRN IV ELEVATED SYSTOLIC BP Last administered on 01/10/19 08:23; Admin Dose 10 MG; Start 01/09/19 at 06:22 Carvedilol (Coreg) 25 mg BID PO ; Start 01/10/19 at 09:00 DAVID CHADWICK NP Jan 10, 2019 10:07
[2019-01-10] MEDS ORDERED: LEVO500T10 PO (12:15)
[2019-01-10] MEDS ORDERED: MED4DP PO (12:15)
[2019-01-10] MEDS ORDERED: APIX5TAB PO (12:15)
[2019-01-10] MEDS ORDERED: IPRA3AMP29 INH (12:15)
--- NOTE | 2019-01-10 12:17 | PDOCDIS ---
Discharge Instructions DIAGNOSIS Discharge Diagnosis 1. Multifocal pneumonia. 2. Right lung mass per CT lung imaging 2. Suspect history of A. fib with pacemaker. 3. COPD. 4. Essential hypertension. 5. History of depression. 6. History of paranoid disorder 7. Hyperlipidemia. 8. Suspect history of CAD. 9. suspect history of GERD. 10. Hyperkalemia 11. decubitus ulcer CONDITION [id number] Patient Condition: [id number] Stable HOME CARE INSTRUCTIONS: [id number] Diet Instructions: [id number] Low Fat /Cholesterol FOLLOW UP/APPOINTMENTS Follow-up Plan 1. Follow up with Dr. Mitchell Moyer in one week Office Address [address] [facility], [address] [place] [address] Office DAVID CHADWICK NP Jan 10, 2019 12:17
[2019-01-10 13:37] VITALS: BP 106/59; PULSE 78; RESP 15
[2019-01-10] MEDS: BENZONATATE 100 MG CAP PO SCH ×2 (13:40→21:07)
--- NOTE | 2019-01-10 19:37 | CONS ---
Assessment/Plan Assessment/Plan Assessment/Plan (Daily) ASSESSMENT: 1. Right upper lobe mass with reported history of lung cancer. Unsure if this was a small or large or nonsmall cell carcinoma. She has a history of radiation, so not clear if this is active disease or residual disease from original cancer. Ideally would have scans compared, but this is unlikely. Otherwise needs a lung biopsy. 2. Chronic obstructive pulmonary disease. She has chronic shortness of breath. 3. Arteriosclerotic cardiovascular disease with history of atrial fibrillation. 4. Pacemaker. 5. 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 Plan: As above. For now being treated for pneumonia. Some of the lung changes on the scan are likely chronic from lung cancer and radiation. If condition improves and family agrees, will need a new biopsy. Consultation Date/Type/Reason Admit Date/Time Jan 04, 2019 at 13:27 Initial Consult Date 01/07/19 Type of Consult Heme Onc Reason for Consultation lung cancer, lung mass. Date/Time of Note DATE: 01/10/19 TIME: 19:31 24 HR Interval Summary Free Text/Dictation Patient reports pain in the left arm, severe. The pain is chronic since her CVA and weakness. Also reports chronic shortness of breath, unchanged. Exam/Review of Systems Exam Vitals Vital Signs Date Temp Pulse Resp B/P (MAP) Pulse Ox O2 O2 Flow FiO2 Time Delivery Rate 01/10/19 78 20 Nasal 3.0 16:19 Cannula 01/10/19 95 15:08 01/10/19 98.8 106/59 13:37 (75) 01/07/19 21 05:17 Intake and Output 01/09/19 01/09/19 01/10/19 1515:00 23:00 07:00 IntakeIntake Total 120 ml OutputOutput Total 600 ml 1000 ml BalanceBalance -600 ml -880 ml Exam GENERAL: The patient is a well-developed, well-nourished, but chronically ill- appearing female in no acute distress. HEENT: Normocephalic. No evidence of trauma. Pupils equal, round, react to light and accommodation. Sclerae nonicteric. Oral mucosa is dry, but there are no lesions. NECK: No LAD CHEST: Decreased breath sounds on the right side with some dullness to pe rcussion. HEART: Irregularly irregular rate and rhythm, no murmurs are heard. ABDOMEN: Distended but no palpable masses. Non tender. EXTREMITIES: No clubbing. No edema or cyanosis. Left arm is swollen. NEUROLOGIC: Left sided hemiparesis. Results Result Diagram: 01/10/19 0708 01/10/19 0708 Results 24hrs Laboratory Tests Test 01/10/19 07:08 White Blood Count 5.1 Red Blood Count 3.47 L Hemoglobin 10.3 L Hematocrit 33.6 L Mean Corpuscular Volume 96.8 Mean Corpuscular Hemoglobin 29.7 Mean Corpuscular Hemoglobin Concent 30.7 L Red Cell Distribution Width 16.7 H Platelet Count 149 Mean Platelet Volume 10.9 H Immature Granulocytes % 0.600 H Neutrophils % 80.4 H Lymphocytes % 7.8 L Monocytes % 11.2 H Eosinophils % 0.0 Basophils % 0.0 Nucleated Red Blood Cells % 0.0 Immature Granulocytes # 0.030 Neutrophils # 4.1 Lymphocytes # 0.4 L Monocytes # 0.6 Eosinophils # 0.0 Basophils # 0.0 Nucleated Red Blood Cells # 0.0 Sodium Level 138 Potassium Level 4.8 Chloride Level 105 Carbon Dioxide Level 26 Anion Gap 7 Blood Urea Nitrogen 35 H Creatinine 0.84 Est Glomerular Filtrat Rate mL/min Glucose Level 140 Calcium Level 9.1 Medications Medication Current Medications Acetaminophen (Tylenol Tab) 650 mg Q6H PRN PO MILD PAIN LEVEL 1-3; Start 01/04/19 at 14:00 Amlodipine Besylate (Norvasc) 10 mg DAILY PO Last administered on 01/10/19at 09:05; Admin Dose 10 MG; Start 01/05/19 at 09:00 Aspirin (Halfprin) 81 mg DAILY PO Last administered on 01/10/19at 09:05; Admin Dose 81 MG; Start 01/05/19 at 09:00 Atorvastatin Calcium (Lipitor) 80 mg QHS PO Last administered on 01/09/19at 21:12; Admin Dose 80 MG; Start 01/04/19 at 21:00 Baclofen (Lioresal) 10 mg TID PO Last administered on 01/10/19at 13:39; Admin Dose 10 MG; Start 01/04/19 at 21:00 Bisacodyl (Dulcolax) 10 mg DAILY PRN PO CONSTIPATION; Start 01/04/19 at 14:00 Citalopram Hydrobromide (Celexa) 20 mg DAILY PO Last administered on 01/10/19 09:04; Admin Dose 20 MG; Start 01/05/19 at 09:00 Gabapentin (Neurontin) 300 mg TID PO Last administered on 01/10/19 13:39; Admin Dose 300 MG; Start 01/04/19 at 21:00 Ondansetron HCl (Zofran Tab) 4 mg Q8H PRN PO NAUSEA AND/OR VOMITING Last administered on 01/04/19 21:29; Admin Dose 4 MG; Start 01/04/19 at 14:00 Pantoprazole (Protonix Tab) 40 mg AC BREAKFAST PO Last administered on 01/10/19 06:12; Admin Dose 40 MG; Start 01/05/19 at 07:00 Senna (Senokot) 2 tab QPM PO Last administered on 01/09/19 21:12; Admin Dose 2 TAB; Start 01/04/19 at 21:00 Trazodone HCl (Desyrel) 50 mg QHS PO Last administered on 01/09/19 21:14; Admin Dose 50 MG; Start 01/04/19 at 21:00 Apixaban (Eliquis) 2.5 mg BID PO Last administered on 01/10/19 09:05; Admin Dose 2.5 MG; Start 01/04/19 at 21:00 Albuterol/ Ipratropium (Duoneb) 3 ml Q6H RESP THERAPY PRN HHN SHORTNESS OF BREATH Last administered on 01/10/19 16:15; Admin Dose 3 ML; Start 01/04/19 at 15:00 IV Flush (NS 3 ml) 3 ml PER PROTOCOL IV ; Start 01/04/19 at 15:00 Ondansetron HCl (Zofran Inj) 4 mg Q6H PRN IV NAUSEA/VOMITING; Start 01/04/19 at 15:00 Acetaminophen (Tylenol Tab) 650 mg Q6H PRN PO .PAIN 1-3 OR TEMP; Start 01/04/19 at 15:00 Acetaminophen (Tylenol Supp) 650 mg Q6H PRN [place] .PAIN 1-3 OR TEMP; Start 01/04/19 at 15:00 Acetaminophen/ Hydrocodone Bitart ([place] (5/325)) 1 tab Q6H PRN PO .MOD PAIN 4- 6 Last administered on 01/10/19 09:13; Admin Dose 1 TAB; Start 01/04/19 at 15:00 Acetaminophen/ Hydrocodone Bitart ([place] (5/325)) 2 tab Q6H PRN PO .SEVERE PAIN 7-10 Last administered on 01/08/19 09:47; Admin Dose 2 TAB; Start 01/04/19 at 15:00 Morphine Sulfate (morphine) 2 mg Q4H PRN IV .SEVERE PAIN 7-10 Last administered on 01/10/19 04:44; Admin Dose 2 MG; Start 01/04/19 at 15:00 Docusate Sodium (Colace) 100 mg Q12H PRN PO .CONSTIPATION; Start 01/04/19 at 15:00 Magnesium Hydroxide (Milk Of Mag) 30 ml DAILY PRN PO .CONSTIPATION; Start 01/04/19 at 15:00 Bisacodyl (Dulcolax Supp) 10 mg DAILY PRN [place] .CONSTIPATION; Start 01/04/19 at 15:00 Arformoterol Tartrate (Brovana (Neb)) 2 ml Q12H RESP THERAPY INH Last adminis tered on 01/09/19 19:17; Admin Dose 2 ML; Start 01/04/19 at 20:00 Budesonide (Pulmicort (Neb)) 0.5 mg Q12H RESP THERAPY INH Last administered on 01/09/19 19:17; Admin Dose 0.5 MG; Start 01/04/19 at 20:00 Guaifenesin (Robitussin Liquid Cup) 200 mg Q4H PRN PO cough Last administered on 01/09/19 15:26; Admin Dose 200 MG; Start 01/05/19 at 13:30 Tramadol HCl (Ultram) 50 mg Q6H PRN PO MODERATE PAIN LEVEL 4-6 Last administered on 01/10/19 12:16; Admin Dose 50 MG; Start 01/05/19 at 16:00 Albuterol/ Ipratropium (Duoneb) 3 ml Q6HWA RESP THERAPY INH Last administered on 01/10/19 14:00; Admin Dose 3 ML; Start 01/06/19 at 14:00 Hydralazine HCl (Apresoline) 25 mg TID PO Last administered on 01/10/19 13:39; Admin Dose 25 MG; Start 01/07/19 at 13:00 Levofloxacin (Levaquin) 750 mg Q48H PO ; Start 01/08/19 at 18:30 Sodium Chloride 1,000 ml @ 40 mls/hr Q24H IV Last administered on 01/08/19at 12:27; Admin Dose 70 MLS/HR; Start 01/08/19 at 11:30 Methylprednisolone Sodium Succinate (Solu-Medrol) 40 mg Q8 IV Last administered on 01/10/19at 13:40; Admin Dose 40 MG; Start 01/08/19 at 14:00 Lorazepam (Ativan) 0.5 mg Q12H PRN IV INSOMNIA Last administered on 01/09/19 21:21; Admin Dose 0.5 MG; Start 01/09/19 at 03:30 Hydralazine HCl (Apresoline) 10 mg Q4H PRN IV ELEVATED SYSTOLIC BP Last administered on 01/10/19at 08:23; Admin Dose 10 MG; Start 01/09/19 at 06:22 Carvedilol (Coreg) 25 mg BID PO ; Start 01/10/19 at 09:00 Benzonatate (Tessalon) 100 mg TID PO Last administered on 01/10/19at 13:40; Admin Dose 100 MG; Start 01/10/19 at 13:00 CARLOS MANUEL ROBERTO MD Jan 10, 2019 19:37
[2019-01-10] MEDS: GUAIFENESIN 20 MG/ML 5ML CUP PO PRN (19:48)
[2019-01-10] MEDS ORDERED: LORAZEPAM 0.5 MG TAB PO PRN (20:00)
[2019-01-10 20:13] VITALS: BP 141/95; PULSE 76; RESP 16
[2019-01-10] MEDS: traZODone 50 MG TAB PO SCH (21:07)
[2019-01-10] MEDS: SENNA TAB PO SCH (21:07)
[2019-01-10] MEDS: ATORVASTATIN 80 MG TAB PO SCH (21:07)
[2019-01-10] MEDS: LEVOFLOXACIN 750 MG TABLET PO SCH (21:14)
[2019-01-10] MEDS: SOD CHLORIDE 0.9% 1,000 ML IV SCH (21:28)
--- NOTE | 2019-01-14 17:30 | DS ---
Date/Time of Note Date/Time of Note DATE: 01/14/19 TIME: 17:25 Discharge Summary Admission/Discharge Info Admit Date/Time Jan 04, 2019 at 13:27 Discharge Date/Time Jan 10, 2019 at 22:45 Discharge Diagnosis 1. Multifocal pneumonia. 2. Right lung mass per CT lung imaging 2. Suspect history of A. fib with pacemaker. 3. COPD. 4. Essential hypertension. 5. History of depression. 6. History of paranoid disorder 7. Hyperlipidemia. 8. Suspect history of CAD. 9. suspect history of GERD. 10. Hyperkalemia 11. decubitus ulcer Patient Condition: Stable Hospital Course This is a 73-year-old female with reported history of COPD, CKD, A. fib, pacemaker, TIA, depression, paranoid personality disorder, cigarette smoking history, hypertension, hyperlipidemia, who came to [facility] due to insurance issues for multifocal pneumonia. Patient states she [facility] at a [facility] and started to experience shortness of breath with associated cough for 3 days duration. She is not aware she was started on any antibiotics prior to hospital admission. She denies any chest pain or dysuria or any other associated symptoms besides reported cough and shortness of breath. She was brought to the hospital to the aformentiond issues. She was noted with a white count of 6.9. And she was afebrile. Chest imaging was done that showed patchy multifocal right greater than left infiltrates concerning for multifocal pneumonia. There is also seen some mild interstitial edema suggestive of cardiopulmonary congestion with a small left pleural effusion. Patient was noted with multifocal pneumonia and placed on appropriate antibiotics. She also did have some shortness of breath associated with this and as such we did get power truck driver to follow the patient to help with her respiratory management. We did get chest imaging with the patient with a CT scan and it did show a right lung mass. Per discussion with the patient and family she was reported with a diagnosis of lung cancer when she was in [place]. She stated that she had a biopsy of this done in [place] and already received chemotherapy and radiation. She did move to [place] and did not have an oncologist. We did get oncological consultation while in-house. She was advised for follow-up without oncologist for further management care of her reported lung mass. She was otherwise optimized medically. She had a history of A. fib with a pacemaker and we did monitor her and provided her with Eliquis. She was also resumed on beta-love. Echocardiogram was also done that showed her to to have a preserved EF. She was provided with oxygen and breathing treatments for her history of COPD. She was also provided with anti-hypertensives for high blood pressure. She was continued on antidepressants for history of depression and risperidone for history of paranoid disorder. She was continued on statin medication for hyperlipidemia. We did monitor her electrolytes and corrected them as needed. She was seen by burlap spreader as well to help her with her acute kidney injury likely secondary to hemodynamics. We did avoid nephrotoxic medications as possible. During the course of stay she did improve. There was plan for her to be transferred to [facility] for further management and care. The plan of care was discussed with the patient. On the day of discharge patient was in stable condition Discussed plan of care with Dr. [facility] Active Scripts Levofloxacin* (Levofloxacin*) 500 Mg Tablet, 500 MG PO DAILY, #7 TAB Prov:DAVID CHADWICK NP 01/10/19 Methylprednisolone* (Medrol* DOSE PACK) 4 Mg/Dose-Pack Tab.ds.pk, 4 MG PO . DIRECTED, #1 PACKET Prov:DAVID CHADWICK NP 01/10/19 Apixaban* (Eliquis*) 5 Mg Tablet, 2.5 MG PO BID, #60 TAB Prov:DAVID CHADWICK NP 01/10/19 Ipratropium-Albuterol (Ipratropium-Albuterol) 0.5-3 Mg/3 Ml Ampul.neb, 3 ML INH Q6HWA RESP THERAPY for 30 Days Prov:DAVID CHADWICK NP 01/10/19 Reported Medications Insulin Lispro (Humalog Kwikpen U-100) 100 Unit/1 Ml Insuln.pen, 0 SQ SLIDING SCALE, EA GIVE 5-10 MIN AC MEALS: IF BS 151-200=3 UNITS,201-250=6 UNITS, 251-300=8 UNITS,301-350=11 UNITS,351-399=13 UNITS-IF EQUAL OR GREATER THAN 400=15 UNITS: NOTIFY MD IF BELOW 60 OR ABOVE 400. 01/04/19 Acetaminophen* (Acetaminophen*) 325 Mg Tablet, 650 MG PO Q6H PRN for MILD PAIN LEVEL 1-3, #30 TAB AND FOR TEMP>101F 01/04/19 Salmeterol Xinaf-Fluticasone* (Advair HFA*) 115/21 Aerosol Inhaler, 2 INH IH BID PRN for COPD, #1 INHALER 01/04/19 Pantoprazole* (Pantoprazole*) 40 Mg Tablet.dr, 40 MG PO AC BREAKFAST, TAB 01/04/19 Gabapentin* (Gabapentin*) 300 Mg Capsule, 300 MG PO TID, #90 CAP 01/04/19 Baclofen* (Baclofen*) 10 Mg Tablet, 10 MG PO TID, TAB 01/04/19 Ondansetron Hcl* (Zofran*) 4 Mg Tab, 4 MG PO Q8H PRN for NAUSEA AND OR VOMITING, TAB 01/04/19 Ipratropium-Albuterol (Ipratropium-Albuterol) 0.5-3 Mg/3 Ml Ampul.neb, 3 ML INHALATION Q6 PRN for COPD, #30 VIAL OR Q4H NEEDED 01/04/19 Hydrocodone/Acetaminophen ([place] 5-325 Tablet) 1 Each Tablet, 1 EACH PO Q4H PRN for MODERATE PAIN LEVEL 4-6, TAB 01/04/19 Guaifenesin* (Robitussin*) 100 Mg/5 Ml Syrup, 10 ML PO Q4H PRN for COUGH, ML 01/04/19 Sennosides* (Senna Lax*) 8.6 Mg Tablet, 2 TAB PO QPM, TAB 01/04/19 Carvedilol* (Carvedilol*) 12.5 Mg Tablet, 12.5 MG PO BID, #60 TAB 01/04/19 Atorvastatin* (Atorvastatin*) 80 Mg Tablet, 80 MG PO QHS, #30 TAB 01/04/19 Risperidone* (Risperidone*) 0.25 Mg Tablet, 0.25 MG PO Q9PM, TAB 01/04/19 Trazodone Hcl* (Trazodone Hcl*) 50 Mg Tablet, 50 MG PO QHS, #30 TAB 01/04/19 Aspirin* (Aspirin* EC) 81 Mg Tablet.dr, 81 MG PO DAILY, TAB 01/04/19 Losartan Potassium* (Losartan Potassium*) 25 Mg Tablet, 25 MG PO DAILY, TAB HOLD FOR SBP LESS THAN 110 6/2/19 Amlodipine Besylate* (Amlodipine Besylate*) 10 Mg Tablet, 10 MG PO DAILY, #30 TAB 01/04/19 Citalopram Hydrobromide* (Citalopram Hydrobromide*) 20 Mg Tablet, 20 MG PO DAILY, #30 TAB 01/04/19 Discontinued Reported Medications Apixaban* (Eliquis*) 2.5 Mg Tablet, 1.25 MG PO BID, TAB 01/04/19 Bisacodyl* (Dulcolax*) 5 Mg Tablet.dr, 10 MG PO DAILY PRN for CONSTIPATION, TAB 01/04/19 Prednisone* (Prednisone*) 20 Mg Tab, 20 MG PO DAILY, TAB 01/04/19 Follow-up Plan 1. Follow up with Dr. Mitchell Moyer in one week Office Address [address] [place] [address], [address] [place] [address] Office Primary Care Provider Not On Staff Doctor Time spent on discharge: > 30 minutes DAVID CHADWICK NP Jan 14, 2019 17:30
== END 2019-01-10 22:45 | DRG 193 ==
LOC: E/R 10:28 → 5EC 13:27 → PP2 16:15 → UNDOADMIN 16:15 → PP2 22:17 → 5EC 01-05 01:04 → UNDOADMIN 01-05 01:04 → PP2 01-05 01:04 → 5EC 01-05 01:12
PROVIDERS: ADMIT Internal Medicine; ATTEND Internal Medicine
DX: J18.9 Pneumonia, unspecified organism (principal); J96.21 Acute and chronic respiratory failure with hypoxia; N17.9 Acute kidney failure, unspecified; J44.1 Chronic obstructive pulmonary disease with (acute) exacerbation; Z95.0 Presence of cardiac pacemaker; J44.9 Chronic obstructive pulmonary disease, unspecified; I10 Essential (primary) hypertension; F32.9 Major depressive disorder, single episode, unspecified; E78.5 Hyperlipidemia, unspecified; I25.10 Atherosclerotic heart disease of native coronary artery without angina pectoris; K21.9 Gastro-esophageal reflux disease without esophagitis; Z87.891 Personal history of nicotine dependence; E87.5 Hyperkalemia; R91.8 Other nonspecific abnormal finding of lung field; J20.9 Acute bronchitis, unspecified; Z85.118 Personal history of other malignant neoplasm of bronchus and lung; I69.931 Monoplegia of upper limb following unspecified cerebrovascular disease affecting right dominant side
CPT/HCPCS: 71045; 71250; 74176; 80048; 80053; 80061; 81001; 81003; 82043; 82378; 83036; 83605; 83735; 84100; 84132; 84155; 84300; 84436; 84443; 84479; 84484; 85025; 85610; 85730; 87081; 87086; 92610; 93005; 93306; 94640; 94664; 94667; 94668; 96374; 96375; 97116; 97162; 97530; J0360; J1956; J2060; J2270; J2920; J3370; J7030; Q9967

== ENCOUNTER 2019-03-05 20:40 | Inpatient (IN) | payer MEDICARE, OTHER ==
[~2019-03-05] VITALS: Ht 157.5 cm; Wt 61.9 kg
[~2019-03-05 20:40] MED LIST: ACET325T45 PO; AMLO-147 PO; APIX5TAB PO; ASPI-817 PO; ATOR-2 PO; BACL10TA PO; CARV12.579 PO; CITA20TA8 PO; FAMO20TA18 PO; FLUT12HF2 IH; GABA300C16 PO; GUAI-637 PO; HYDR-4011 PO; INSU100I12 SQ; IPRA3AMP29 INH; IPRA3AMP29 INHALATION; LEVO500T10 PO; LOSA25TA12 PO; MED4DP PO; ONDA4TAB13 PO; PANT40TA4 PO; RISP0.253 PO; SENN-120 PO; TRAZ-111 PO
[2019-03-05] MEDS ORDERED: VANCOMYCIN 1 GM (PMX) 250 ML IVPB STA (22:20)
[2019-03-05] MEDS ORDERED: CEFEPIME 1GM/50 ML (PMX) 50 ML IVPB STA (22:20)
--- NOTE | 2019-03-05 22:25 | ERD ---
ER Documentation Chief Complaint Chief Complaint [id number],from [facility],chest congestion,chest pain when coughing HPI With shortness of breath, chest discomfort, cough. For the past several days. Denies nausea or vomiting. Denies baseline oxygen requirement. Patient is coming from a nursing facility. No dysuria or diarrhea does endorse some mild constipation. Patient unable to give more history. Says she does not really know ROS All systems reviewed and are negative except as per history of present illness. Medications Home Meds Active Scripts Levofloxacin* (Levofloxacin*) 500 Mg Tablet, 500 MG PO DAILY, #7 TAB Prov:DAVID CHADWICK NP 01/10/19 Methylprednisolone* (Medrol* DOSE PACK) 4 Mg/Dose-Pack Tab.ds.pk, 4 MG PO . DIRECTED, #1 PACKET Prov:DAVID CHADWICK NP 01/10/19 Apixaban* (Eliquis*) 5 Mg Tablet, 2.5 MG PO BID, #60 TAB Prov:DAVID CHADWICK NP 01/10/19 Ipratropium-Albuterol (Ipratropium-Albuterol) 0.5-3 Mg/3 Ml Ampul.neb, 3 ML INH Q6HWA RESP THERAPY for 30 Days Prov:DAVID CHADWICK NP 01/10/19 Reported Medications Insulin Lispro (Humalog Kwikpen U-100) 100 Unit/1 Ml Insuln.pen, 0 SQ SLIDING SCALE, EA GIVE 5-10 MIN AC MEALS: IF BS 151-200=3 UNITS,201-250=6 UNITS, 251-300=8 UNITS,301-350=11 UNITS,351-399=13 UNITS-IF EQUAL OR GREATER THAN 400=15 UNITS: NOTIFY MD IF BELOW 60 OR ABOVE 400. 01/04/19 Acetaminophen* (Acetaminophen*) 325 Mg Tablet, 650 MG PO Q6H PRN for MILD PAIN LEVEL 1-3, #30 TAB AND FOR TEMP>101F 01/04/19 Salmeterol Xinaf-Fluticasone* (Advair HFA*) 115/21 Aerosol Inhaler, 2 INH IH BID PRN for COPD, #1 INHALER 01/04/19 Pantoprazole* (Pantoprazole*) 40 Mg Tablet.dr, 40 MG PO AC BREAKFAST, TAB 01/04/19 Gabapentin* (Gabapentin*) 300 Mg Capsule, 300 MG PO TID, #90 CAP 01/04/19 Baclofen* (Baclofen*) 10 Mg Tablet, 10 MG PO TID, TAB 01/04/19 Ondansetron Hcl* (Zofran*) 4 Mg Tab, 4 MG PO Q8H PRN for NAUSEA AND OR VOMITING, TAB 01/04/19 Ipratropium-Albuterol (Ipratropium-Albuterol) 0.5-3 Mg/3 Ml Ampul.neb, 3 ML INHALATION Q6 PRN for COPD, #30 VIAL OR Q4H NEEDED 01/04/19 Hydrocodone/Acetaminophen ([place] 5-325 Tablet) 1 Each Tablet, 1 EACH PO Q4H PRN for MODERATE PAIN LEVEL 4-6, TAB 01/04/19 Guaifenesin* (Robitussin*) 100 Mg/5 Ml Syrup, 10 ML PO Q4H PRN for COUGH, ML 01/04/19 Sennosides* (Senna Lax*) 8.6 Mg Tablet, 2 TAB PO QPM, TAB 01/04/19 Carvedilol* (Carvedilol*) 12.5 Mg Tablet, 12.5 MG PO BID, #60 TAB 01/04/19 Atorvastatin* (Atorvastatin*) 80 Mg Tablet, 80 MG PO QHS, #30 TAB 01/04/19 Risperidone* (Risperidone*) 0.25 Mg Tablet, 0.25 MG PO Q9PM, TAB 01/04/19 Trazodone Hcl* (Trazodone Hcl*) 50 Mg Tablet, 50 MG PO QHS, #30 TAB 01/04/19 Aspirin* (Aspirin* EC) 81 Mg Tablet.dr, 81 MG PO DAILY, TAB 01/04/19 Losartan Potassium* (Losartan Potassium*) 25 Mg Tablet, 25 MG PO DAILY, TAB HOLD FOR SBP LESS THAN 110 01/04/19 Amlodipine Besylate* (Amlodipine Besylate*) 10 Mg Tablet, 10 MG PO DAILY, #30 TAB 01/04/19 Citalopram Hydrobromide* (Citalopram Hydrobromide*) 20 Mg Tablet, 20 MG PO DAILY, #30 TAB 01/04/19 Allergies Allergies: Coded Allergies: No Known Allergy (Unverified , 01/04/19) PMhx/Soc Anesthesia Reaction: No Hx Neurological Disorder: Yes (cva) Hx Respiratory Disorders: Yes (copd) Hx Cardiac Disorders: Yes (htn) Hx Psychiatric Problems: No Hx Miscellaneous Medical Probl: Yes (COPD, CKD, A. fib with pacemaker, suspect history of TIA, history of depres) Hx Alcohol Use: No Hx Substance Use: No Hx Tobacco Use: No Smoking Status: Former smoker Physical Exam Vitals Vital Signs Date Temp Pulse Resp B/P (MAP) Pulse Ox O2 O2 Flow FiO2 Time Delivery Rate 03/05/19 Nasal 3 21:54 Cannula 03/05/19 Nasal 3.0 21:54 Cannula 03/05/19 99.1 61 18 119/89 92 20:54 (99) Physical Exam Const: No acute distress Head: Atraumatic Eyes: Normal Conjunctiva ENT: Normal External Ears, Nose and Mouth. Neck: Full range of motion. No meningismus. Resp: Clear to auscultation bilaterally Cardio: Regular rate and rhythm, no murmurs Abd: Soft, non tender, non distended. Normal bowel sounds Skin: No petechiae or rashes Back: No midline or flank tenderness Ext: No cyanosis, or edema Neur: Awake and alert Psych: Normal Mood and Affect Result Diagram: 03/05/19213203/05/192132 Results 24 hrs Laboratory Tests Test 03/05/19 21:33 White Blood Count 6.1 10^3/ul Red Blood Count 3.49 10^6/ul Hemoglobin 9.7 g/dl Hematocrit 32.8 % Mean Corpuscular Volume 94.0 fl Mean Corpuscular Hemoglobin 27.8 pg Mean Corpuscular Hemoglobin Concent 29.6 g/dl Red Cell Distribution Width 17.6 % Platelet Count 145 10^3/UL Mean Platelet Volume 11.3 fl Immature Granulocytes % 0.300 % Neutrophils % 60.6 % Lymphocytes % 13.8 % Monocytes % 11.4 % Eosinophils % 13.2 % Basophils % 0.7 % Nucleated Red Blood Cells % 0.3 /100WBC Immature Granulocytes # 0.020 10^3/ul Neutrophils # 3.7 10^3/ul Lymphocytes # 0.8 10^3/ul Monocytes # 0.7 10^3/ul Eosinophils # 0.8 10^3/ul Basophils # 0.0 10^3/ul Nucleated Red Blood Cells # 0.0 10^3/ul Sodium Level 142 mmol/L Potassium Level 5.0 mmol/L Chloride Level 110 mmol/L Carbon Dioxide Level 28 mmol/L Anion Gap 4 Blood Urea Nitrogen 31 mg/dl Creatinine 0.85 mg/dl Est Glomerular Filtrat Rate mL/min mL/min Glucose Level 91 mg/dl Calcium Level 8.8 mg/dl Troponin I 0.061 ng/ml Current Medications Medications Dose Sig/Fritz Start Time Status Last (Trade) Ordered Route PRN Stop Time Admin Dose Reason Admin Cefepime HCl 50 ml @ ONCE STAT 03/05/19 100 mls/hr IVPB 22:20 03/05/19 22:49 Vancomycin 250 ml @ ONCE STAT 03/05/19 HCl 125 mls/hr IVPB 22:20 03/06/19 00:19 Procedures/MDM P/w SOB day w concomitant chest discomfort and productive cough found to have pos CXR findings consistent with multifocal pneumonia Unlikely PE: No tachycardia no recent trauma or surgery, no hemoptysis, no exogenous estrogen use, unilateral leg swelling or prior clots. Not PTX: normal CXR, bilateral lung sounds Unlikely tamponade: given normal EKG Not IN: normal EKG, negative trop Not Esophageal rupture: no dysphagia Patient does have a history of COPD could be exacerbating her symptoms. However no wheezing at this time Plan will admit for IV antibiotics given high risk for H CAP Departure Condition: Stable JALEN GEE MD Mar 05, 2019 22:25
[2019-03-05] MEDS ORDERED: ONDANSETRON 4 MG INJ IV PRN (23:00)
[2019-03-05] MEDS ORDERED: ACETAMINOPHEN 325 MG TAB PO PRN (23:00)
[2019-03-05] MEDS ORDERED: AMLODIPINE 10 MG TAB PO ONE (23:30)
[2019-03-06] VITALS (10 sets, daily range): BP systolic 90–158; BP diastolic 63–89; PULSE 70–98; RESP 18–24; Ht 157.5 cm; Wt 61.9 kg
[2019-03-06] MEDS ORDERED: hydrALAzine 20 MG INJ IV ONE (01:30)
[2019-03-06] MEDS ORDERED: ALBUTEROL 0.5% (NEB) 2.5 MG/0.5 ML AMP INH STA (01:43)
[2019-03-06] MEDS ORDERED: NON-FORMULARY/PATIENT OWN MED (Salmeterol Xinaf-Fluticasone* (Advair HFA*) 2 INH) IH PRN (02:00)
[2019-03-06] MEDS ORDERED: ACETAMINOPHEN 325 MG TAB PO PRN (02:00)
[2019-03-06] MEDS ORDERED: ONDANSETRON 4 MG INJ IV PRN (02:00)
[2019-03-06] MEDS ORDERED: HYDROCODONE/APAP (5/325) TAB PO PRN (02:00)
[2019-03-06] MEDS ORDERED: NACL 0.9% 3 ML SYG IV SCH (02:00)
[2019-03-06] MEDS ORDERED: GUAIFENESIN 20 MG/ML 5ML CUP PO PRN (02:00)
[2019-03-06] MEDS ORDERED: HALOPERIDOL 5 MG INJ IM ONE (04:30)
[2019-03-06] MEDS ORDERED: LORAZEPAM 2 MG INJ IV ONE (05:30)
--- NOTE | 2019-03-06 07:34 | HP ---
Date/Time of Note Date/Time of Note DATE: 03/06/19 TIME: 07:23 Assessment/Plan VTE Prophylaxis Pharmacological prophylaxis: heparin Lines/Catheters IV C[facility]ter Type (from [facility]): Saline Lock Assessment/Plan Assessment/Plan 1. Bilateral pneumonia -Patient was admitted here a month ago and was treated for multifocal pneumonia. Now she is sent from SNF for cough. Chest x-ray shows bilateral R > L pneumonia. -Supplemental oxygen, IV antibiotic 2. Altered mentation: Baseline is not known, however according to her last hospitalization, it seems like like she was able to give history at the time of admission -Obtain head CT -Patient with a history of CVA 3. Right lung mass: Per previous discharge summary, status post chemo when patient was in [place]. She was evaluated by an oncologist in-house during her recent hospitalization and plan was for outpatient follow-up 4. Atrial fibrillation: Rate controlled 5. COPD: Supplemental oxygen, bronchodilators and steroid as needed 6. Hypertension: BP with-in acceptable range. Adjust BP meds as needed 7. Pacemaker status Result Diagram: 03/06/19 0552 03/06/19 0552 Results 24hrs Laboratory Tests Test 03/05/19 21:33 03/06/19 05:52 White Blood Count 6.1 18.5 #H Red Blood Count 3.49 L 4.08 L Hemoglobin 9.7 L 11.1 L Hematocrit 32.8 L 38.9 Mean Corpuscular Volume 94.0 95.3 Mean Corpuscular Hemoglobin 27.8 L 27.2 L Mean Corpuscular Hemoglobin Concent 29.6 L 28.5 L Red Cell Distribution Width 17.6 H 17.6 H Platelet Count 145 188 # Mean Platelet Volume 11.3 H 12.0 H Immature Granulocytes % 0.300 0.400 Neutrophils % 60.6 85.5 H Lymphocytes % 13.8 L 4.9 L Monocytes % 11.4 H 6.4 Eosinophils % 13.2 H 2.4 Basophils % 0.7 0.4 Nucleated Red Blood Cells % 0.3 H 0.2 H Immature Granulocytes # 0.020 0.080 H Neutrophils # 3.7 15.8 H Lymphocytes # 0.8 0.9 Monocytes # 0.7 1.2 H Eosinophils # 0.8 H 0.4 Basophils # 0.0 0.1 Nucleated Red Blood Cells # 0.0 0.0 Sodium Level 142 144 Potassium Level 5.0 4.1 Chloride Level 110 109 Carbon Dioxide Level 28 26 Anion Gap 4 L 9 # Blood Urea Nitrogen 31 H 25 H Creatinine 0.85 0.68 Est Glomerular Filtrat Rate mL/min Glucose Level 91 144 # Calcium Level 8.8 9.3 Troponin I 0.061 Phosphorus Level 4.0 Magnesium Level 2.1 Total Bilirubin 0.6 Direct Bilirubin 0.00 Indirect Bilirubin 0.6 Aspartate Amino Transf (AST/SGOT) 46 Alanine Aminotransferase (ALT/SGPT) 43 Alkaline Phosphatase 126 H Total Protein 7.2 Albumin 4.0 Globulin 3.20 Albumin/Globulin Ratio 1.25 HPI/ROS Admit Date/Time Admit Date/Time Mar 05, 2019 at 23:01 Hx of Present Illness Patient is a 73-year-old female with a history of, hypertension, COPD, atrial fibrillation, pacemaker, depression/paranoid disorder, right lung cancer status post biopsy in [place] (per previous notes received chemo), multifocal pneumonia. Patient was sent from SNF for a cough and chest pain. I am not able to gather history from the patient. When she was admitted to telemetry unit, she was agitated, trying to get out of bed requiring restraints and Ativan. She did say her name when asked otherwise unable to obtain a history. Patient was admitted here a month ago and was treated for multifocal pneumonia. As far as the patient's right lung cancer is concerned, according to recent discharge summary, she had a biopsy when she was in [place] and actually received chemo. After she moved to [place], she did not have an oncologist. She was evaluated by oncologist in-house during her recent hospitalization and plan was for outpatient follow-up. When she presented to the ER, vitals were stable. WBC WNL. Chest x-ray shows b ilateral right greater than left infiltrate. PMH/Family/Social Past Medical History Medical History: other (See HPI) Medications Current Medications IV Flush (NS 3 ml) 3 ml PER PROTOCOL IV ; Start 03/06/19 at 02:00 Ondansetron HCl (Zofran Inj) 4 mg Q6H PRN IV NAUSEA/VOMITING; Start 03/06/19 at 02:00 Acetaminophen (Tylenol Tab) 650 mg Q6H PRN PO .PAIN 1-3 OR TEMP; Start 03/06/19 at 02:00 Amlodipine Besylate (Norvasc) 10 mg DAILY PO ; Start 03/06/19 at 09:00 Apixaban (Eliquis) 2.5 mg BID PO ; Start 03/06/19 at 09:00 Aspirin (Halfprin) 81 mg DAILY PO ; Start 03/06/19 at 09:00 Atorvastatin Calcium (Lipitor) 80 mg QHS PO ; Start 03/06/19 at 21:00 Baclofen (Lioresal) 10 mg TID PO ; Start 03/06/19 at 09:00 Carvedilol (Coreg) 12.5 mg BID PO ; Start 03/06/19 at 09:00 Citalopram Hydrobromide (Celexa) 20 mg DAILY PO ; Start 03/06/19 at 09:00 Gabapentin (Neurontin) 300 mg TID PO ; Start 03/06/19 at 09:00 Guaifenesin (Robitussin Liquid Cup) 200 mg Q4H PRN PO COUGH; Start 03/06/19 at 02:00 Acetaminophen/ Hydrocodone Bitart ([place] (5/325)) 1 tab Q4H PRN PO MODERATE PAIN LEVEL 4-6; Start 03/06/19 at 02:00 Albuterol/ Ipratropium (Duoneb) 3 ml Q6HWA RESP THERAPY INH ; Start 03/06/19 at 08:00 Losartan Potassium (Cozaar) 25 mg DAILY PO ; Start 03/06/19 at 09:00 Pantoprazole (Protonix Tab) 40 mg AC BREAKFAST PO ; Start 03/06/19 at 07:00 Risperidone (Risperdal) 0.25 mg DAILY PO ; Start 03/06/19 at 09:00 Senna (Senokot) 2 tab QPM PO ; Start 03/06/19 at 21:00 Trazodone HCl (Desyrel) 50 mg QHS PO ; Start 03/06/19 at 21:00 Miscellaneous Information 2 inh BID PRN IH COPD; Start 03/06/19 at 02:00; Status UNV Methylprednisolone Sodium Succinate (Solu-Medrol) 40 mg DAILY IV ; Start 03/06/19 at 09:00 Coded Allergies: No Known Allergy (Unverified , 01/04/19) Past Surgical History Past Surgical Hx: other (See HPI) Family History Significant Family History: other Social History Alcohol Use: other (Unknown) Smoking Status: Unknown if ever smoked Drug Use: other (Unknown) Exam/Review of Systems Vital Signs Vitals Vital Signs Date Temp Pulse Resp B/P (MAP) Pulse Ox O2 O2 Flow FiO2 Time Delivery Rate 03/06/19 98.1 95 24 151/75 96 Nasal 06:00 (100) Cannula 03/06/19 5.0 04:41 Exam Constitutional: other (Patient not oriented, sleepy) Head: normocephalic Neck: supple, non-tender Respiratory: other (Decreased breath sounds anteriorly) Cardiovascular: regular rate and rhythm, nl pulses Extremities: other (Bilateral lower extremity pitting edema. Left greater than right) DELMER CHATTERJEE MD Mar 06, 2019 07:33
[2019-03-06] MEDS ORDERED: VANCOMYCIN IV PER PHARMACY XX SCH (08:00)
[2019-03-06] MEDS: PANTOPRAZOLE (EC) 40 MG TAB PO SCH (08:25)
[2019-03-06] MEDS ORDERED: PENDING SANTYL ORDER FOR WOUND CARE XX PRN (08:30)
[2019-03-06] MEDS: VANCOMYCIN 500 MG (PMX) 100 ML IVPB SCH ×2 (08:42→21:02)
[2019-03-06] MEDS: ALBUTEROL/IPRATROPIUM (NEB) 3 ML AMP INH SCH ×3 (08:59→19:49)
[2019-03-06] MEDS: BACLOFEN 10 MG TAB PO SCH ×3 (09:00→21:00)
[2019-03-06] MEDS: RISPERIDONE 0.25 MG TAB PO SCH (09:00)
[2019-03-06] MEDS ORDERED: CEFEPIME 1GM/50 ML (PMX) 50 ML IVPB SCH (09:00)
[2019-03-06] MEDS: LOSARTAN 25 MG TAB PO SCH (09:00)
[2019-03-06] MEDS: GABAPENTIN 300 MG CAP PO SCH ×3 (09:00→21:00)
[2019-03-06] MEDS: CITALOPRAM 20 MG TAB PO SCH (09:00)
[2019-03-06] MEDS: AMLODIPINE 10 MG TAB PO SCH (09:00)
[2019-03-06] MEDS: APIXABAN 5 MG TABLET PO SCH ×2 (09:00→21:00)
[2019-03-06] MEDS: ASPIRIN (EC) 81 MG TAB PO SCH (09:00)
[2019-03-06] MEDS: METHYLPREDNISOLONE 40 MG INJ IV SCH (09:07)
[2019-03-06] MEDS: CEFEPIME 2GM/50 ML IVPB SCH ×2 (10:14→21:02)
--- NOTE | 2019-03-06 11:19 | PN ---
Date/Time of Note Date/Time of Note DATE: 03/06/19 TIME: 11:16 Assessment/Plan VTE Prophylaxis Risk score (from Ns)>0 risk: 7 SCD applied (from Ns): No SCD contraindicated: other Pharmacological prophylaxis: apixaban Lines/Catheters IV [facility] (from [facility]): Saline Lock Urinary Cath still in place: No (no f/c) Assessment/Plan Hospital Course S: Patient became agitated earlier this morning and required restraints and Haldol. Still on antibiotics and fluids. O: VS- see below PE: Constitutional: other (Patient not oriented, sleepy, in restraints) Head: normocephalic Neck: supple, non-tender Respiratory: other (Decreased breath sounds anteriorly) Cardiovascular: regular rate and rhythm, nl pulses Extremities: other (Bilateral lower extremity pitting edema. Left greater than right) Head CT March 06, 2019: IMPRESSION: 1. Slightly limited due to motion through the skull base. 2. 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 3. No obvious acute intracranial hemorrhage or acute territorial infarct. 4. Age related atrophy and small vessel ischemic change. 5. 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 6. Cerebral arterial sclerosis. 7. Chronic-appearing opacification of the right sphenoid sinus. 8. If there is ongoing symptoms, consider further evaluation with MRI Assessment/Plan: 73-year-old female who presents from snf with: 1. Bilateral pneumonia-Patient was admitted here a month ago and was treated for multifocal pneumonia. Now she is sent from SNF for cough. Chest x-ray shows bilateral R > L pneumonia. -For now continue supplemental oxygen, IV antibiotic -Duo nebs as needed -Follow-up results of speech therapy eval 2. Altered mentation: Likely secondary to patient's pneumonia. Baseline is not known, however according to her last hospitalization, it seems like like she was able to give history at the time of admission. Head CT did not show any acute findings. -Monitor for now, will obtain PT and OT eval's as well -Given prior history of CVA, if symptoms do not improve we will consider brai n MRI for further evaluation. 3. Right lung mass: Per previous discharge summary, status post chemo when patient was in [place]. She was evaluated by an oncologist in-house during her recent hospitalization and plan was for outpatient follow-up, including a possible lung biopsy as an outpatient. -Monitor for now 4. Atrial fibrillation: Rate controlled, monitor 5. COPD: Supplemental oxygen, bronchodilators and steroid as needed 6. Hypertension: BP with-in acceptable range. Adjust BP meds as needed 7. Pacemaker status-monitor heart rate Result Diagram: 03/06/19 0832 03/06/19 0832 Results 24hrs Laboratory Tests Test 03/05/19 21:33 03/06/19 05:52 03/06/19 08:32 White Blood Count 6.1 18.5 #H 18.6 H Red Blood Count 3.49 L 4.08 L 3.91 L Hemoglobin 9.7 L 11.1 L 10.8 L Hematocrit 32.8 L 38.9 36.7 L Mean Corpuscular Volume 94.0 95.3 93.9 Mean Corpuscular Hemoglobin 27.8 L 27.2 L 27.6 L Mean Corpuscular Hemoglobin Concent 29.6 L 28.5 L 29.4 L Red Cell Distribution Width 17.6 H 17.6 H 17.5 H Platelet Count 145 188 # 179 Mean Platelet Volume 11.3 H 12.0 H 12.1 H Immature Granulocytes % 0.300 0.400 0.500 H Neutrophils % 60.6 85.5 H 90.6 H Lymphocytes % 13.8 L 4.9 L 1.5 L Monocytes % 11.4 H 6.4 6.8 Eosinophils % 13.2 H 2.4 0.3 Basophils % 0.7 0.4 0.3 Nucleated Red Blood Cells % 0.3 H 0.2 H 0.0 Immature Granulocytes # 0.020 0.080 H 0.100 H Neutrophils # 3.7 15.8 H 16.8 H Lymphocytes # 0.8 0.9 0.3 L Monocytes # 0.7 1.2 H 1.3 H Eosinophils # 0.8 H 0.4 0.1 Basophils # 0.0 0.1 0.1 Nucleated Red Blood Cells # 0.0 0.0 0.0 Sodium Level 142 144 145 H Potassium Level 5.0 4.1 4.1 Chloride Level 110 109 108 Carbon Dioxide Level 28 26 27 Anion Gap 4 L 9 # 10 Blood Urea Nitrogen 31 H 25 H 24 H Creatinine 0.85 0.68 0.66 Est Glomerular Filtrat Rate mL/min Glucose Level 91 144 # 124 Calcium Level 8.8 9.3 9.3 Troponin I 0.061 Phosphorus Level 4.0 Magnesium Level 2.1 Total Bilirubin 0.6 0.7 Direct Bilirubin 0.00 0.00 Indirect Bilirubin 0.6 0.7 Aspartate Amino Transf (AST/SGOT) 46 41 Alanine Aminotransferase (ALT/SGPT) 43 39 Alkaline Phosphatase 126 H 122 H Total Protein 7.2 7.1 Albumin 4.0 4.0 Globulin 3.20 3.10 Albumin/Globulin Ratio 1.25 1.29 Exam/Review of Systems Exam Vitals Vital Signs Date Temp Pulse Resp B/P (MAP) Pulse Ox O2 O2 Flow FiO2 Time Delivery Rate 03/06/19 98.3 77 18 140/75 93 10:08 (96) 03/06/19 Nasal 5.0 08:43 Cannula Results Results 24hrs Laboratory Tests Test 03/05/19 21:33 03/06/19 05:52 03/06/19 08:32 White Blood Count 6.1 18.5 #H 18.6 H Red Blood Count 3.49 L 4.08 L 3.91 L Hemoglobin 9.7 L 11.1 L 10.8 L Hematocrit 32.8 L 38.9 36.7 L Mean Corpuscular Volume 94.0 95.3 93.9 Mean Corpuscular Hemoglobin 27.8 L 27.2 L 27.6 L Mean Corpuscular Hemoglobin Concent 29.6 L 28.5 L 29.4 L Red Cell Distribution Width 17.6 H 17.6 H 17.5 H Platelet Count 145 188 # 179 Mean Platelet Volume 11.3 H 12.0 H 12.1 H Immature Granulocytes % 0.300 0.400 0.500 H Neutrophils % 60.6 85.5 H 90.6 H Lymphocytes % 13.8 L 4.9 L 1.5 L Monocytes % 11.4 H 6.4 6.8 Eosinophils % 13.2 H 2.4 0.3 Basophils % 0.7 0.4 0.3 Nucleated Red Blood Cells % 0.3 H 0.2 H 0.0 Immature Granulocytes # 0.020 0.080 H 0.100 H Neutrophils # 3.7 15.8 H 16.8 H Lymphocytes # 0.8 0.9 0.3 L Monocytes # 0.7 1.2 H 1.3 H Eosinophils # 0.8 H 0.4 0.1 Basophils # 0.0 0.1 0.1 Nucleated Red Blood Cells # 0.0 0.0 0.0 Sodium Level 142 144 145 H Potassium Level 5.0 4.1 4.1 Chloride Level 110 109 108 Carbon Dioxide Level 28 26 27 Anion Gap 4 L 9 # 10 Blood Urea Nitrogen 31 H 25 H 24 H Creatinine 0.85 0.68 0.66 Est Glomerular Filtrat Rate mL/min Glucose Level 91 144 # 124 Calcium Level 8.8 9.3 9.3 Troponin I 0.061 Phosphorus Level 4.0 Magnesium Level 2.1 Total Bilirubin 0.6 0.7 Direct Bilirubin 0.00 0.00 Indirect Bilirubin 0.6 0.7 Aspartate Amino Transf (AST/SGOT) 46 41 Alanine Aminotransferase (ALT/SGPT) 43 39 Alkaline Phosphatase 126 H 122 H Total Protein 7.2 7.1 Albumin 4.0 4.0 Globulin 3.20 3.10 Albumin/Globulin Ratio 1.25 1.29 Medications Medication Current Medications IV Flush (NS 3 ml) 3 ml PER PROTOCOL IV ; Start 03/06/19 at 02:00 Ondansetron HCl (Zofran Inj) 4 mg Q6H PRN IV NAUSEA/VOMITING; Start 03/06/19 at 02:00 Acetaminophen (Tylenol Tab) 650 mg Q6H PRN PO .PAIN 1-3 OR TEMP; Start 03/06/19 at 02:00 Amlodipine Besylate (Norvasc) 10 mg DAILY PO ; Start 03/06/19 at 09:00 Apixaban (Eliquis) 2.5 mg BID PO ; Start 03/06/19 at 09:00 Aspirin (Halfprin) 81 mg DAILY PO ; Start 03/06/19 at 09:00 Atorvastatin Calcium (Lipitor) 80 mg QHS PO ; Start 03/06/19 at 21:00 Baclofen (Lioresal) 10 mg TID PO ; Start 03/06/19 at 09:00 Carvedilol (Coreg) 12.5 mg BID PO ; Start 03/06/19 at 09:00 Citalopram Hydrobromide (Celexa) 20 mg DAILY PO ; Start 03/06/19 at 09:00 Gabapentin (Neurontin) 300 mg TID PO ; Start 03/06/19 at 09:00 Guaifenesin (Robitussin Liquid Cup) 200 mg Q4H PRN PO COUGH; Start 03/06/19 at 02:00 Acetaminophen/ Hydrocodone Bitart ([place] (5/325)) 1 tab Q4H PRN PO MODERATE PAIN LEVEL 4-6; Start 03/06/19 at 02:00 Albuterol/ Ipratropium (Duoneb) 3 ml Q6HWA RESP THERAPY INH Last administered on 03/06/19at 08:59; Admin Dose 3 ML; Start 03/06/19 at 08:00 Losartan Potassium (Cozaar) 25 mg DAILY PO ; Start 03/06/19 at 09:00 Pantoprazole (Protonix Tab) 40 mg AC BREAKFAST PO ; Start 03/06/19 at 07:00 Risperidone (Risperdal) 0.25 mg DAILY PO ; Start 03/06/19 at 09:00 Senna (Senokot) 2 tab QPM PO ; Start 03/06/19 at 21:00 Trazodone HCl (Desyrel) 50 mg QHS PO ; Start 03/06/19 at 21:00 Miscellaneous Information 2 inh BID PRN IH COPD; Start 03/06/19 at 02:00; Status UNV Methylprednisolone Sodium Succinate (Solu-Medrol) 40 mg DAILY IV Last administered on 03/06/19at 09:07; Admin Dose 40 MG; Start 03/06/19 at 09:00 Vancomycin HCl (Vanco Iv Per Pharmacy) VANCOMYCIN PER PHARMACY PER PROTOCOL XX ; Start 03/06/19 at 08:00 Vancomycin HCl 100 ml @ 100 mls/hr Q12H IVPB Last administered on 03/06/19at 08:42; Admin Dose 100 MLS/HR; Start 03/06/19 at 09:00 Miscellaneous Information (Pending Santyl Order For Wound Care) This patient coughlin... PRN PRN XX WOUND CARE; Start 03/06/19 at 08:30 Miscellaneous Information (*Rx Drug Level Order Reminder*) VANCOMYCIN TROUGH AT 2,000 ON ... ONCE ONCE XX ; Start 03/07/19 at 20:00; Stop 03/07/19 at 20:01 Cefepime HCl 50 ml @ 100 mls/hr Q12 IVPB Last administered on 03/06/19at 10:14; Admin Dose 100 MLS/HR; Start 03/06/19 at 09:00 MAE ANSARI Mar 06, 2019 11:19
[2019-03-06] MEDS ORDERED: LIDOCAINE 1% (MPF) 5 ML VIAL SC ONE (14:30)
[2019-03-06] MEDS: BUDESONIDE (NEB) 0.5MG/2ML AMP INH SCH (19:52)
[2019-03-06] MEDS: ARFORMOTEROL TARTRATE 15MCG/2 ML AMP INH SCH (19:52)
[2019-03-06] MEDS: ATORVASTATIN 80 MG TAB PO SCH (21:00)
[2019-03-06] MEDS: traZODone 50 MG TAB PO SCH (21:00)
[2019-03-06] MEDS: SENNA TAB PO SCH (21:00)
[2019-03-07] VITALS (10 sets, daily range): BP systolic 97–184; BP diastolic 63–91; PULSE 62–87; RESP 18–23
[2019-03-07] MEDS: PANTOPRAZOLE (EC) 40 MG TAB PO SCH (07:00)
[2019-03-07] MEDS: ALBUTEROL/IPRATROPIUM (NEB) 3 ML AMP INH SCH ×3 (08:16→20:24)
[2019-03-07] MEDS: ARFORMOTEROL TARTRATE 15MCG/2 ML AMP INH SCH ×2 (08:16→20:34)
[2019-03-07] MEDS: BUDESONIDE (NEB) 0.5MG/2ML AMP INH SCH ×2 (08:16→20:42)
[2019-03-07] MEDS: METHYLPREDNISOLONE 40 MG INJ IV SCH (09:15)
[2019-03-07] MEDS: CEFEPIME 2GM/50 ML IVPB SCH ×2 (09:16→20:25)
[2019-03-07] MEDS: RISPERIDONE 0.25 MG TAB PO SCH (09:19)
[2019-03-07] MEDS: ASPIRIN (EC) 81 MG TAB PO SCH (09:20)
[2019-03-07] MEDS: APIXABAN 5 MG TABLET PO SCH ×2 (09:20→20:27)
[2019-03-07] MEDS: CITALOPRAM 20 MG TAB PO SCH (09:20)
[2019-03-07] MEDS: AMLODIPINE 10 MG TAB PO SCH (09:20)
[2019-03-07] MEDS: BACLOFEN 10 MG TAB PO SCH ×3 (09:20→20:27)
[2019-03-07] MEDS: GABAPENTIN 300 MG CAP PO SCH ×3 (09:21→20:27)
[2019-03-07] MEDS: LOSARTAN 25 MG TAB PO SCH (09:21)
--- NOTE | 2019-03-07 09:32 | PN ---
Date/Time of Note Date/Time of Note DATE: 03/07/19 TIME: 09:30 Assessment/Plan VTE Prophylaxis Risk score (from Ns)>0 risk: 7 SCD applied (from Ns): No SCD contraindicated: other Pharmacological prophylaxis: apixaban Lines/Catheters IV Catheter Type (from [facility]): PICC Line Central line still needed: Yes Urinary Cath still in place: No Assessment/Plan Hospital Course S: Patient had no fevers overnight. Still n.p.o. per speech therapy jeff mmendations. Still on antibiotics. O: VS- see below PE: Constitutional: other (Patient not oriented, sleepy, in restraints) Head: normocephalic Neck: supple, non-tender Respiratory: other (Decreased breath sounds anteriorly) Cardiovascular: regular rate and rhythm, nl pulses Extremities: other (Bilateral lower extremity pitting edema. Left greater than right) Head CT March 06, 2019: IMPRESSION: 1. Slightly limited due to motion through the skull base. 2. 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 3. No obvious acute intracranial hemorrhage or acute territorial infarct. 4. Age related atrophy and small vessel ischemic change. 5. 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 6. Cerebral arterial sclerosis. 7. Chronic-appearing opacification of the right sphenoid sinus. 8. If there is ongoing symptoms, consider further evaluation with MRI Assessment/Plan: 73-year-old female who presents from group home with: 1. Bilateral pneumonia-Patient was admitted here a month ago and was treated for multifocal pneumonia. Patient sent from SNF for cough. Chest x-ray shows b ilateral R > L pneumonia. -For now continue supplemental oxygen, IV antibiotic -Duo nebs as needed -Follow-up further results of speech therapy eval 2. Altered mentation: Likely secondary to patient's pneumonia. Baseline is not known, however according to her last hospitalization, it seems like like she was able to give history at the time of admission. Head CT did not show any acute findings. -Monitor for now, will obtain PT and OT eval's as well -Given prior history of CVA, if symptoms do not improve we will consider brain MRI for further evaluation. 3. Right lung mass: Per previous discharge summary, status post chemo when patient was in [place]. She was evaluated by an oncologist in-house during her recent hospitalization and plan was for outpatient follow-up, including a possible lung biopsy as an outpatient. -Monitor for now 4. Atrial fibrillation: Rate controlled, monitor 5. COPD: Supplemental oxygen, bronchodilators and steroid as needed 6. Hypertension: BP with-in acceptable range. Adjust BP meds as needed 7. Pacemaker status-monitor heart rate Result Diagram: 03/07/19 0545 03/07/19 0545 Results 24hrs Laboratory Tests Test 03/06/19 21:22 03/07/19 05:45 Blood Gas Specimen Source Blood arterial Arterial Blood Date Drawn 03/06/2019 9:35:36 PM Arterial Blood pH (Temp corrected) 7.422 Arterial Blood pCO2 (Temp correct) 38.8 Arterial Blood pO2 (Temp corrected) 98.0 H Arterial Blood HCO3 24.7 Arterial Blood Base Excess 0.4 Arterial Blood Oxygen Saturation 97.0 Donn Test ACCEPTAB Arterial Blood Gas Puncture Site Right Radial Arterial Blood Carboxyhemoglobin 0.8 Arterial Blood Methemoglobin 0.4 Blood Gas A-a O2 Differential 113.7 H Oxyhemoglobin Percent 95.8 Blood Gas Temperature 37.0 Blood Gas Modality NASAL CANNULA FiO2 36.0 Blood Gas Notified Whom UP Blood Gas Notified Time 03/06/2019 9:42:13 PM White Blood Count 21.6 H Red Blood Count 3.46 L Hemoglobin 9.6 L Hematocrit 32.1 L Mean Corpuscular Volume 92.8 Mean Corpuscular Hemoglobin 27.7 L Mean Corpuscular Hemoglobin Concent 29.9 L Red Cell Distribution Width 17.8 H Platelet Count 148 Mean Platelet Volume 12.7 H Immature Granulocytes % 0.600 H Neutrophils % 87.4 H Lymphocytes % 2.5 L Monocytes % 9.3 Eosinophils % 0.0 Basophils % 0.2 Nucleated Red Blood Cells % 0.1 H Immature Granulocytes # 0.130 H Neutrophils # 18.9 H Lymphocytes # 0.5 L Monocytes # 2.0 H Eosinophils # 0.0 Basophils # 0.0 Nucleated Red Blood Cells # 0.0 Sodium Level 142 Potassium Level 4.4 Chloride Level 108 Carbon Dioxide Level 28 Anion Gap 6 Blood Urea Nitrogen 23 H Creatinine 0.71 Est Glomerular Filtrat Rate mL/min Glucose Level 114 Calcium Level 8.9 Phosphorus Level 4.2 Magnesium Level 2.0 Exam/Review of Systems Exam Vitals Vital Signs Date Temp Pulse Resp B/P (MAP) Pulse Ox O2 O2 Flow FiO2 Time Delivery Rate 03/07/19 3.0 08:16 03/07/19 73 20 99 Nasal 08:16 Cannula 03/07/19 98.9 125/91 08:08 (102) 03/06/19 36 09:00 Intake and Output 03/06/19 03/06/19 03/07/19 1515:00 23:00 07:00 IntakeIntake Total 150 ml 0 ml BalanceBalance 150 ml 0 ml Results Results 24hrs Laboratory Tests Test 03/06/19 21:22 03/07/19 05:45 Blood Gas Specimen Source Blood arterial Arterial Blood Date Drawn 03/06/2019 9:35:36 PM Arterial Blood pH (Temp corrected) 7.422 Arterial Blood pCO2 (Temp correct) 38.8 Arterial Blood pO2 (Temp corrected) 98.0 H Arterial Blood HCO3 24.7 Arterial Blood Base Excess 0.4 Arterial Blood Oxygen Saturation 97.0 Donn Test ACCEPTAB Arterial Blood Gas Puncture Site Right Radial Arterial Blood Carboxyhemoglobin 0.8 Arterial Blood Methemoglobin 0.4 Blood Gas A-a O2 Differential 113.7 H Oxyhemoglobin Percent 95.8 Blood Gas Temperature 37.0 Blood Gas Modality NASAL CANNULA FiO2 36.0 Blood Gas Notified Whom UP Blood Gas Notified Time 03/06/2019 9:42:13 PM White Blood Count 21.6 H Red Blood Count 3.46 L Hemoglobin 9.6 L Hematocrit 32.1 L Mean Corpuscular Volume 92.8 Mean Corpuscular Hemoglobin 27.7 L Mean Corpuscular Hemoglobin Concent 29.9 L Red Cell Distribution Width 17.8 H Platelet Count 148 Mean Platelet Volume 12.7 H Immature Granulocytes % 0.600 H Neutrophils % 87.4 H Lymphocytes % 2.5 L Monocytes % 9.3 Eosinophils % 0.0 Basophils % 0.2 Nucleated Red Blood Cells % 0.1 H Immature Granulocytes # 0.130 H Neutrophils # 18.9 H Lymphocytes # 0.5 L Monocytes # 2.0 H Eosinophils # 0.0 Basophils # 0.0 Nucleated Red Blood Cells # 0.0 Sodium Level 142 Potassium Level 4.4 Chloride Level 108 Carbon Dioxide Level 28 Anion Gap 6 Blood Urea Nitrogen 23 H Creatinine 0.71 Est Glomerular Filtrat Rate mL/min Glucose Level 114 Calcium Level 8.9 Phosphorus Level 4.2 Magnesium Level 2.0 Medications Medication Current Medications IV Flush (NS 3 ml) 3 ml PER PROTOCOL IV ; Start 03/06/19 at 02:00 Ondansetron HCl (Zofran Inj) 4 mg Q6H PRN IV NAUSEA/VOMITING; Start 03/06/19 at 02:00 Acetaminophen (Tylenol Tab) 650 mg Q6H PRN PO .PAIN 1-3 OR TEMP; Start 03/06/19 at 02:00 Amlodipine Besylate (Norvasc) 10 mg DAILY PO Last administered on 03/07/19 09:20; Admin Dose 10 MG; Start 03/06/19 at 09:00 Apixaban (Eliquis) 2.5 mg BID PO Last administered on 03/07/19 09:20; Admin D ose 2.5 MG; Start 03/06/19 at 09:00 Aspirin (Halfprin) 81 mg DAILY PO Last administered on 03/07/19 09:20; Admin Dose 81 MG; Start 03/06/19 at 09:00 Atorvastatin Calcium (Lipitor) 80 mg QHS PO ; Start 03/06/19 at 21:00 Baclofen (Lioresal) 10 mg TID PO Last administered on 03/07/19 09:20; Admin Dose 10 MG; Start 03/06/19 at 09:00 Carvedilol (Coreg) 12.5 mg BID PO Last administered on 03/07/19 09:20; Admin Dose 12.5 MG; Start 03/06/19 at 09:00 Citalopram Hydrobromide (Celexa) 20 mg DAILY PO Last administered on 03/07/19 09:20; Admin Dose 20 MG; Start 03/06/19 at 09:00 Gabapentin (Neurontin) 300 mg TID PO Last administered on 03/07/19 09:21; Admin Dose 300 MG; Start 03/06/19 at 09:00 Guaifenesin (Robitussin Liquid Cup) 200 mg Q4H PRN PO COUGH; Start 03/06/19 at 02:00 Acetaminophen/ Hydrocodone Bitart ([place] (5/325)) 1 tab Q4H PRN PO MODERATE PAIN LEVEL 4-6; Start 03/06/19 at 02:00 Albuterol/ Ipratropium (Duoneb) 3 ml Q6HWA RESP THERAPY INH Last administered on 03/07/19 08:16; Admin Dose 3 ML; Start 03/06/19 at 08:00 Losartan Potassium (Cozaar) 25 mg DAILY PO Last administered on 03/07/19 09:21; Admin Dose 25 MG; Start 03/06/19 at 09:00 Pantoprazole (Protonix Tab) 40 mg AC BREAKFAST PO ; Start 03/06/19 at 07:00 Risperidone (Risperdal) 0.25 mg DAILY PO Last administered on 03/07/19 09:19; Admin Dose 0.25 MG; Start 03/06/19 at 09:00 Senna (Senokot) 2 tab QPM PO ; Start 03/06/19 at 21:00 Trazodone HCl (Desyrel) 50 mg QHS PO ; Start 03/06/19 at 21:00 Methylprednisolone Sodium Succinate (Solu-Medrol) 40 mg DAILY IV Last administered on 03/07/19 09:15; Admin Dose 40 MG; Start 03/06/19 at 09:00 Vancomycin HCl (Vanco Iv Per Pharmacy) VANCOMYCIN PER PHARMACY PER PROTOCOL XX ; Start 03/06/19 at 08:00 Vancomycin HCl 100 ml @ 100 mls/hr Q12H IVPB Last administered on 03/06/19at 21:02; Admin Dose 100 MLS/HR; Start 03/06/19 at 09:00 Miscellaneous Information (Pending Santyl Order For Wound Care) This patient coughlin... PRN PRN XX WOUND CARE; Start 03/06/19 at 08:30 Miscellaneous Information (*Rx Drug Level Order Reminder*) VANCOMYCIN TROUGH AT 2,000 ON ... ONCE ONCE XX ; Start 03/07/19 at 20:00; Stop 03/07/19 at 20:01 Cefepime HCl 50 ml @ 100 mls/hr Q12 IVPB Last administered on 03/07/19 09:16; Admin Dose 100 MLS/HR; Start 03/06/19 at 09:00 IV Flush (NS 10 ml) 10 ml PRN PRN IV IV PROTOCOL; Start 03/06/19 at 19:00 Arformoterol Tartrate (Brovana (Neb)) 2 ml BID RESP THERAPY INH Last ad ministered on 03/07/19 08:16; Admin Dose 2 ML; Start 03/06/19 at 20:00 Budesonide (Pulmicort (Neb)) 0.5 mg BID RESP THERAPY INH Last administered on 03/07/19at 08:16; Admin Dose 0.5 MG; Start 03/06/19 at 20:00 MAE ANSARI Mar 07, 2019 09:32
[2019-03-07] MEDS: SOD CHLORIDE 0.45% 1,000 ML IV SCH ×2 (09:43→23:29)
[2019-03-07] MEDS: VANCOMYCIN 500 MG (PMX) 100 ML IVPB SCH ×2 (09:56→20:26)
[2019-03-07] MEDS: traZODone 50 MG TAB PO SCH (20:26)
[2019-03-07] MEDS: SENNA TAB PO SCH (20:27)
[2019-03-07] MEDS: ATORVASTATIN 80 MG TAB PO SCH (20:27)
[2019-03-07] MEDS ORDERED: HALOPERIDOL 5 MG INJ IM ONE (23:30)
[2019-03-08] VITALS: BP 119/72; PULSE 62; RESP 18
[2019-03-08 04:00] VITALS: BP 116/67; PULSE 63; RESP 18
[2019-03-08] MEDS: PANTOPRAZOLE (EC) 40 MG TAB PO SCH (06:26)
[2019-03-08 07:32] VITALS: BP 118/66; PULSE 65; RESP 18
[2019-03-08] MEDS: APIXABAN 5 MG TABLET PO SCH ×2 (08:38→20:10)
[2019-03-08] MEDS: METHYLPREDNISOLONE 40 MG INJ IV SCH (08:38)
[2019-03-08] MEDS: LOSARTAN 25 MG TAB PO SCH (08:39)
[2019-03-08] MEDS: AMLODIPINE 10 MG TAB PO SCH (08:39)
[2019-03-08] MEDS: GABAPENTIN 300 MG CAP PO SCH ×3 (08:39→20:10)
[2019-03-08] MEDS: CITALOPRAM 20 MG TAB PO SCH (08:39)
[2019-03-08] MEDS: ASPIRIN (EC) 81 MG TAB PO SCH (08:40)
[2019-03-08] MEDS: BACLOFEN 10 MG TAB PO SCH ×3 (08:40→20:11)
[2019-03-08] MEDS: RISPERIDONE 0.25 MG TAB PO SCH (08:50)
[2019-03-08] MEDS: CEFEPIME 2GM/50 ML IVPB SCH ×2 (08:50→22:01)
[2019-03-08] MEDS: ARFORMOTEROL TARTRATE 15MCG/2 ML AMP INH SCH ×2 (09:18→20:32)
[2019-03-08] MEDS: BUDESONIDE (NEB) 0.5MG/2ML AMP INH SCH ×2 (09:18→20:31)
[2019-03-08] MEDS: ALBUTEROL/IPRATROPIUM (NEB) 3 ML AMP INH SCH ×3 (09:18→20:31)
[2019-03-08] MEDS: VANCOMYCIN 750 MG (PMX) 250 ML IVPB SCH ×2 (09:34→20:09)
[2019-03-08 12:27] VITALS: BP 112/58; PULSE 60; RESP 18
[2019-03-08] MEDS: SOD CHLORIDE 0.45% 1,000 ML IV SCH (12:40)
--- NOTE | 2019-03-08 12:54 | PN ---
Date/Time of Note Date/Time of Note DATE: 03/08/19 TIME: 12:52 Assessment/Plan VTE Prophylaxis Risk score (from Ns)>0 risk: 8 SCD applied (from Ns): No SCD contraindicated: other Pharmacological prophylaxis: apixaban Lines/Catheters IV [facility]ter Type (from [facility]): PICC Line Central line still needed: Yes Urinary Cath still in place: No Assessment/Plan Hospital Course S: Patient more awake and alert today, sitting in chair tolerating modified diet. No fevers overnight. White blood cell count still elevated. O: VS- see below PE: Constitutional: sitting in chair eating breakfast, no acute distress Head: normocephalic Neck: supple, non-tender Respiratory: other (Decreased breath sounds anteriorly) Cardiovascular: regular rate and rhythm, nl pulses Extremities: other (Bilateral lower extremity pitting edema. Left greater than right) Head CT March 06, 2019: IMPRESSION: 1. Slightly limited due to motion through the skull base. 2. 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 3. No obvious acute intracranial hemorrhage or acute territorial infarct. 4. Age related atrophy and small vessel ischemic change. 5. Punctate cortical surface calcification suspicious for old neurocyst icercosis. 6. Cerebral arterial sclerosis. 7. Chronic-appearing opacification of the right sphenoid sinus. 8. If there is ongoing symptoms, consider further evaluation with MRI Assessment/Plan: 73-year-old female who presents from residential with: 1. Bilateral pneumonia-Patient was admitted here a month ago and was treated for multifocal pneumonia. Patient sent from SNF for cough. Chest x-ray shows bilateral R > L pneumonia. Symptoms slowly improving, white blood cell count still elevated but no fevers. -For now continue supplemental oxygen, IV antibiotic -Duo nebs as needed -Follow-up further results of speech therapy eval, and CBC daily 2. Altered mentation: Slowly improving, likely secondary to patient's pneumonia. Baseline is not known, however according to her last hospitalization, it seems like like she was able to give history at the time of admission. Head CT did not show any acute findings. -Monitor for now, follow-up recommendations from PT and OT eval's as well 3. Right lung mass: Per previous discharge summary, status post chemo when patient was in [place]. She was evaluated by an oncologist in-house during her recent hospitalization and plan was for outpatient follow-up, including a possible lung biopsy as an outpatient. -Monitor for now 4. Atrial fibrillation: Rate controlled, monitor 5. COPD: Supplemental oxygen, bronchodilators and steroid as needed 6. Hypertension: BP with-in acceptable range. Adjust BP meds as needed 7. Pacemaker status-monitor heart rate Result Diagram: 03/08/19 0503 03/08/19 0503 Results 24hrs Laboratory Tests Test 03/07/19 20:06 03/08/19 05:03 Vancomycin Level Trough 9.3 L White Blood Count 15.0 #H Red Blood Count 3.16 L Hemoglobin 8.6 L Hematocrit 29.9 L Mean Corpuscular Volume 94.6 Mean Corpuscular Hemoglobin 27.2 L Mean Corpuscular Hemoglobin Concent 28.8 L Red Cell Distribution Width 17.4 H Platelet Count 140 Mean Platelet Volume 11.9 H Immature Granulocytes % 0.700 H Neutrophils % 86.7 H Lymphocytes % 3.8 L Monocytes % 8.7 Eosinophils % 0.0 Basophils % 0.1 Nucleated Red Blood Cells % 0.1 H Immature Granulocytes # 0.110 H Neutrophils # 13.0 H Lymphocytes # 0.6 L Monocytes # 1.3 H Eosinophils # 0.0 Basophils # 0.0 Nucleated Red Blood Cells # 0.0 Sodium Level 138 Potassium Level 4.6 Chloride Level 106 Carbon Dioxide Level 31 Anion Gap 1 L Blood Urea Nitrogen 23 H Creatinine 0.72 Est Glomerular Filtrat Rate mL/min Glucose Level 106 Calcium Level 8.8 Phosphorus Level 3.5 Magnesium Level 2.2 Exam/Review of Systems Exam Vitals Vital Signs Date Temp Pulse Resp B/P (MAP) Pulse Ox O2 O2 Flow FiO2 Time Delivery Rate 03/08/19 98.0 60 18 112/58 98 12:27 (76) 03/08/19 4.0 09:18 03/08/19 Nasal 09:18 Cannula 03/06/19 36 09:00 Intake and Output 03/07/19 03/07/19 03/08/19 1515:00 23:00 07:00 IntakeIntake Total 150 ml 970 ml 50 ml BalanceBalance 150 ml 970 ml 50 ml Results Results 24hrs Laboratory Tests Test 03/07/19 20:06 03/08/19 05:03 Vancomycin Level Trough 9.3 L White Blood Count 15.0 #H Red Blood Count 3.16 L Hemoglobin 8.6 L Hematocrit 29.9 L Mean Corpuscular Volume 94.6 Mean Corpuscular Hemoglobin 27.2 L Mean Corpuscular Hemoglobin Concent 28.8 L Red Cell Distribution Width 17.4 H Platelet Count 140 Mean Platelet Volume 11.9 H Immature Granulocytes % 0.700 H Neutrophils % 86.7 H Lymphocytes % 3.8 L Monocytes % 8.7 Eosinophils % 0.0 Basophils % 0.1 Nucleated Red Blood Cells % 0.1 H Immature Granulocytes # 0.110 H Neutrophils # 13.0 H Lymphocytes # 0.6 L Monocytes # 1.3 H Eosinophils # 0.0 Basophils # 0.0 Nucleated Red Blood Cells # 0.0 Sodium Level 138 Potassium Level 4.6 Chloride Level 106 Carbon Dioxide Level 31 Anion Gap 1 L Blood Urea Nitrogen 23 H Creatinine 0.72 Est Glomerular Filtrat Rate mL/min Glucose Level 106 Calcium Level 8.8 Phosphorus Level 3.5 Magnesium Level 2.2 Medications Medication Current Medications IV Flush (NS 3 ml) 3 ml PER PROTOCOL IV ; Start 03/06/19 at 02:00 Ondansetron HCl (Zofran Inj) 4 mg Q6H PRN IV NAUSEA/VOMITING Last administered on 03/07/19 09:55; Admin Dose 4 MG; Start 03/06/19 at 02:00 Acetaminophen (Tylenol Tab) 650 mg Q6H PRN PO .PAIN 1-3 OR TEMP; Start 03/06/19 at 02:00 Amlodipine Besylate (Norvasc) 10 mg DAILY PO Last administered on 03/08/19 08:39; Admin Dose 10 MG; Start 03/06/19 at 09:00 Apixaban (Eliquis) 2.5 mg BID PO Last administered on 03/08/19 08:38; Admin Dose 2.5 MG; Start 03/06/19 at 09:00 Aspirin (Halfprin) 81 mg DAILY PO Last administered on 03/08/19 08:40; Admin Dose 81 MG; Start 03/06/19 at 09:00 Atorvastatin Calcium (Lipitor) 80 mg QHS PO Last administered on 03/07/19 20:27; Admin Dose 80 MG; Start 03/06/19 at 21:00 Baclofen (Lioresal) 10 mg TID PO Last administered on 03/08/19 08:40; Admin Dose 10 MG; Start 03/06/19 at 09:00 Carvedilol (Coreg) 12.5 mg BID PO Last administered on 03/08/19 08:39; Admin Dose 12.5 MG; Start 03/06/19 at 09:00 Citalopram Hydrobromide (Celexa) 20 mg DAILY PO Last administered on 03/08/19 08:39; Admin Dose 20 MG; Start 03/06/19 at 09:00 Gabapentin (Neurontin) 300 mg TID PO Last administered on 03/08/19 08:39; Admin Dose 300 MG; Start 03/06/19 at 09:00 Guaifenesin (Robitussin Liquid Cup) 200 mg Q4H PRN PO COUGH; Start 03/06/19 at 02:00 Acetaminophen/ Hydrocodone Bitart ([place] (5/325)) 1 tab Q4H PRN PO MODERATE TRACEY N LEVEL 4-6 Last administered on 03/08/19 04:34; Admin Dose 1 TAB; Start 03/06/19 at 02:00 Albuterol/ Ipratropium (Duoneb) 3 ml Q6HWA RESP THERAPY INH Last administered on 03/08/19 09:18; Admin Dose 3 ML; Start 03/06/19 at 08:00 Losartan Potassium (Cozaar) 25 mg DAILY PO Last administered on 03/08/19 08:39; Admin Dose 25 MG; Start 03/06/19 at 09:00 Pantoprazole (Protonix Tab) 40 mg AC BREAKFAST PO Last administered on 03/08/19 06:26; Admin Dose 40 MG; Start 03/06/19 at 07:00 Risperidone (Risperdal) 0.25 mg DAILY PO Last administered on 03/08/19 08:50; Admin Dose 0.25 MG; Start 03/06/19 at 09:00 Senna (Senokot) 2 tab QPM PO Last administered on 03/07/19 20:27; Admin Dose 2 TAB; Start 03/06/19 at 21:00 Trazodone HCl (Desyrel) 50 mg QHS PO Last administered on 03/07/19 20:26; Admin Dose 50 MG; Start 03/06/19 at 21:00 Methylprednisolone Sodium Succinate (Solu-Medrol) 40 mg DAILY IV Last ad ministered on 03/08/19at 08:38; Admin Dose 40 MG; Start 03/06/19 at 09:00 Vancomycin HCl (Vanco Iv Per Pharmacy) VANCOMYCIN PER PHARMACY PER PROTOCOL XX ; Start 03/06/19 at 08:00 Miscellaneous Information (Pending Santyl Order For Wound Care) This patient coughlin... PRN PRN XX WOUND CARE; Start 03/06/19 at 08:30 Cefepime HCl 50 ml @ 100 mls/hr Q12 IVPB Last administered on 03/08/19at 08:50; Admin Dose 100 MLS/HR; Start 03/06/19 at 09:00 IV Flush (NS 10 ml) 10 ml PRN PRN IV IV PROTOCOL; Start 03/06/19 at 19:00 Arformoterol Tartrate (Brovana (Neb)) 2 ml BID RESP THERAPY INH Last administered on 03/08/19at 09:18; Admin Dose 2 ML; Start 03/06/19 at 20:00 Budesonide (Pulmicort (Neb)) 0.5 mg BID RESP THERAPY INH Last administered on 03/08/19at 09:18; Admin Dose 0.5 MG; Start 03/06/19 at 20:00 Sodium Chloride 1,000 ml @ 75 mls/hr [id number] IV Last administered on 03/07/19at 23:29; Admin Dose 75 MLS/HR; Start 03/07/19 at 10:00 Vancomycin/Sodium Chloride 250 ml @ 125 mls/hr Q12H IVPB Last administered on 03/08/19at 09:34; Admin Dose 125 MLS/HR; Start 03/08/19 at 09:00 Miscellaneous Information (*Rx Drug Level Order Reminder*) VANCOMYCIN LEVEL TROUGH 2000 ONCE XX ; Start 03/09/19 at 20:00; Stop 03/09/19 at 20:01 MAE ANSARI Mar 08, 2019 12:54
[2019-03-08 14:50] VITALS: BP 153/80; PULSE 60; RESP 18
[2019-03-08 19:25] VITALS: BP 123/73; PULSE 61; RESP 19
[2019-03-08] MEDS: traZODone 50 MG TAB PO SCH (20:10)
[2019-03-08] MEDS: ATORVASTATIN 80 MG TAB PO SCH (20:10)
[2019-03-08] MEDS: SENNA TAB PO SCH (20:12)
[2019-03-09] VITALS: BP 127/83; PULSE 60; RESP 19
[2019-03-09] MEDS: SOD CHLORIDE 0.45% 1,000 ML IV SCH ×2 (02:00→08:33)
[2019-03-09 03:59] VITALS: BP 117/77; PULSE 62; RESP 18
[2019-03-09] MEDS: PANTOPRAZOLE (EC) 40 MG TAB PO SCH (06:31)
[2019-03-09 07:25] VITALS: BP 177/84; PULSE 62; RESP 16
[2019-03-09] MEDS: ALBUTEROL/IPRATROPIUM (NEB) 3 ML AMP INH SCH ×3 (08:08→23:55)
[2019-03-09] MEDS: ARFORMOTEROL TARTRATE 15MCG/2 ML AMP INH SCH ×2 (08:09→22:18)
[2019-03-09] MEDS: BUDESONIDE (NEB) 0.5MG/2ML AMP INH SCH ×2 (08:09→22:25)
[2019-03-09] MEDS: BACLOFEN 10 MG TAB PO SCH ×3 (08:30→20:32)
[2019-03-09] MEDS: ASPIRIN (EC) 81 MG TAB PO SCH (08:30)
[2019-03-09] MEDS: GABAPENTIN 300 MG CAP PO SCH ×3 (08:30→20:34)
[2019-03-09] MEDS: VANCOMYCIN 750 MG (PMX) 250 ML IVPB SCH ×2 (08:30→21:57)
[2019-03-09] MEDS: METHYLPREDNISOLONE 40 MG INJ IV SCH (08:30)
[2019-03-09] MEDS: AMLODIPINE 10 MG TAB PO SCH (08:31)
[2019-03-09] MEDS: LOSARTAN 25 MG TAB PO SCH (08:31)
[2019-03-09] MEDS: APIXABAN 5 MG TABLET PO SCH ×2 (08:31→20:45)
[2019-03-09] MEDS: CITALOPRAM 20 MG TAB PO SCH (08:31)
[2019-03-09] MEDS: RISPERIDONE 0.25 MG TAB PO SCH (08:33)
[2019-03-09] MEDS: CEFEPIME 2GM/50 ML IVPB SCH ×2 (08:44→20:46)
--- NOTE | 2019-03-09 11:33 | PN ---
Date/Time of Note Date/Time of Note DATE: 03/09/19 TIME: 11:29 Assessment/Plan VTE Prophylaxis Risk score (from Ns)>0 risk: 9 SCD applied (from Ns): No SCD contraindicated: low risk/ambulating Pharmacological prophylaxis: LMWH Lines/Catheters IV Catheter Type (from Nrsg): PICC Line Central line still needed: Yes Urinary Cath still in place: No Assessment/Plan Hospital Course Assessment and plan 1. Severe sepsis, stable finish antibiotics 2. Suspected healthcare associated pneumonia stable finish antibiotics status post picc 3. Acute hypoxic respiratory failure continue O2 at SNF 4. 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 Reluctant for further therapy biopsy? Recommend palliative care 5. Failure to thrive, stable discharge to SNF 6. Paroxysmal A. fib continue anticoagulation at [facility] 7. Htn 8. COPD 9. Pacemaker status 10. History of right MCA stroke 11. Ac encephalopathy due to 2 delirium 12. Anemia S: event noted no further fever O: Vss; blood pressure fluctuating pain anxiety? PE No pallor JVD Regular no murmur gallop Diminished but no tachypnea Bs+ ntnd no RRG No edema Result Diagram: 03/09/19 0549 03/09/19 0548 Results 24hrs Laboratory Tests Test 03/09/19 05:48 03/09/19 05:49 Sodium Level 139 Potassium Level 4.9 Chloride Level 107 Carbon Dioxide Level 28 Anion Gap 4 L Blood Urea Nitrogen 24 H Creatinine 0.74 Est Glomerular Filtrat Rate mL/min Glucose Level 94 Calcium Level 9.1 White Blood Count 13.0 H Red Blood Count 3.66 L Hemoglobin 9.8 L Hematocrit 34.4 L Mean Corpuscular Volume 94.0 Mean Corpuscular Hemoglobin 26.8 L Mean Corpuscular Hemoglobin Concent 28.5 L Red Cell Distribution Width 16.9 H Platelet Count 164 Mean Platelet Volume 12.2 H Immature Granulocytes % 0.400 Neutrophils % 86.9 H Lymphocytes % 5.0 L Monocytes % 7.4 Eosinophils % 0.1 Basophils % 0.2 Nucleated Red Blood Cells % 0.2 H Immature Granulocytes # 0.050 H Neutrophils # 11.3 H Lymphocytes # 0.7 L Monocytes # 1.0 H Eosinophils # 0.0 Basophils # 0.0 Nucleated Red Blood Cells # 0.0 Phosphorus Level 3.3 Magnesium Level 2.2 Exam/Review of Systems Exam Vitals Vital Signs Date Temp Pulse Resp B/P (MAP) Pulse Ox O2 O2 Flow FiO2 Time Delivery Rate 03/09/19 Nasal 4.0 09:39 Cannula 03/09/19 60 18 98 08:09 03/09/19 98.2 177/84 07:25 (115) 03/06/19 36 09:00 Intake and Output 03/08/19 03/08/19 03/09/19 1515:00 23:00 07:00 IntakeIntake Total 300 ml 1050 ml 50 ml OutputOutput Total 1 ml BalanceBalance 300 ml 1050 ml 49 ml Results Results 24hrs Laboratory Tests Test 03/09/19 05:48 03/09/19 05:49 Sodium Level 139 Potassium Level 4.9 Chloride Level 107 Carbon Dioxide Level 28 Anion Gap 4 L Blood Urea Nitrogen 24 H Creatinine 0.74 Est Glomerular Filtrat Rate mL/min Glucose Level 94 Calcium Level 9.1 White Blood Count 13.0 H Red Blood Count 3.66 L Hemoglobin 9.8 L Hematocrit 34.4 L Mean Corpuscular Volume 94.0 Mean Corpuscular Hemoglobin 26.8 L Mean Corpuscular Hemoglobin Concent 28.5 L Red Cell Distribution Width 16.9 H Platelet Count 164 Mean Platelet Volume 12.2 H Immature Granulocytes % 0.400 Neutrophils % 86.9 H Lymphocytes % 5.0 L Monocytes % 7.4 Eosinophils % 0.1 Basophils % 0.2 Nucleated Red Blood Cells % 0.2 H Immature Granulocytes # 0.050 H Neutrophils # 11.3 H Lymphocytes # 0.7 L Monocytes # 1.0 H Eosinophils # 0.0 Basophils # 0.0 Nucleated Red Blood Cells # 0.0 Phosphorus Level 3.3 Magnesium Level 2.2 Medications Medication Current Medications IV Flush (NS 3 ml) 3 ml PER PROTOCOL IV ; Start 03/06/19 at 02:00 Ondansetron HCl (Zofran Inj) 4 mg Q6H PRN IV NAUSEA/VOMITING Last administered on 03/07/19at 09:55; Admin Dose 4 MG; Start 03/06/19 at 02:00 Acetaminophen (Tylenol Tab) 650 mg Q6H PRN PO .PAIN 1-3 OR TEMP; Start 03/06/19 at 02:00 Amlodipine Besylate (Norvasc) 10 mg DAILY PO Last administered on 8/5/19at 08:31; Admin Dose 10 MG; Start 03/06/19 at 09:00 Apixaban (Eliquis) 2.5 mg BID PO Last administered on 03/09/19 08:31; Admin Dose 2.5 MG; Start 03/06/19 at 09:00 Aspirin (Halfprin) 81 mg DAILY PO Last administered on 03/09/19 08:30; Admin Dose 81 MG; Start 03/06/19 at 09:00 Atorvastatin Calcium (Lipitor) 80 mg QHS PO Last administered on 03/08/19 20:10; Admin Dose 80 MG; Start 03/06/19 at 21:00 Baclofen (Lioresal) 10 mg TID PO Last administered on 03/09/19 08:30; Admin Dose 10 MG; Start 03/06/19 at 09:00 Carvedilol (Coreg) 12.5 mg BID PO Last administered on 03/09/19 08:32; Admin Dose 12.5 MG; Start 03/06/19 at 09:00 Citalopram Hydrobromide (Celexa) 20 mg DAILY PO Last administered on 03/09/19 08:31; Admin Dose 20 MG; Start 03/06/19 at 09:00 Gabapentin (Neurontin) 300 mg TID PO Last administered on 03/09/19 08:30; Admin Dose 300 MG; Start 03/06/19 at 09:00 Guaifenesin (Robitussin Liquid Cup) 200 mg Q4H PRN PO COUGH Last administered on 03/09/19 04:27; Admin Dose 200 MG; Start 03/06/19 at 02:00 Acetaminophen/ Hydrocodone Bitart ([place] (5/325)) 1 tab Q4H PRN PO MODERATE PAIN LEVEL 4-6 Last administered on 03/08/19 04:34; Admin Dose 1 TAB; Start 03/06/19 at 02:00 Albuterol/ Ipratropium (Duoneb) 3 ml Q6HWA RESP THERAPY INH Last administered on 03/09/19 08:08; Admin Dose 3 ML; Start 03/06/19 at 08:00 Losartan Potassium (Cozaar) 25 mg DAILY PO Last administered on 03/09/19 08:31; Admin Dose 25 MG; Start 03/06/19 at 09:00 Pantoprazole (Protonix Tab) 40 mg AC BREAKFAST PO Last administered on 03/09/19 06:31; Admin Dose 40 MG; Start 03/06/19 at 07:00 Risperidone (Risperdal) 0.25 mg DAILY PO Last administered on 03/09/19 08:33; Admin Dose 0.25 MG; Start 03/06/19 at 09:00 Senna (Senokot) 2 tab QPM PO Last administered on 03/08/19 20:12; Admin Dose 2 TAB; Start 03/06/19 at 21:00 Trazodone HCl (Desyrel) 50 mg QHS PO Last administered on 03/08/19 20:10; Admin Dose 50 MG; Start 03/06/19 at 21:00 Methylprednisolone Sodium Succinate (Solu-Medrol) 40 mg DAILY IV Last administered on 03/09/19 08:30; Admin Dose 40 MG; Start 03/06/19 at 09:00 Vancomycin HCl (Vanco Iv Per Pharmacy) VANCOMYCIN PER PHARMACY PER PROTOCOL XX ; Start 03/06/19 at 08:00 Miscellaneous Information (Pending Santyl Order For Wound Care) This patient coughlin... PRN PRN XX WOUND CARE; Start 03/06/19 at 08:30 Cefepime HCl 50 ml @ 100 mls/hr Q12 IVPB Last administered on 03/09/19 08:44; Admin Dose 100 MLS/HR; Start 03/06/19 at 09:00 IV Flush (NS 10 ml) 10 ml PRN PRN IV IV PROTOCOL; Start 03/06/19 at 19:00 Arformoterol Tartrate (Brovana (Neb)) 2 ml BID RESP THERAPY INH Last administered on 03/09/19 08:09; Admin Dose 2 ML; Start 03/06/19 at 20:00 Budesonide (Pulmicort (Neb)) 0.5 mg BID RESP THERAPY INH Last administered on 03/09/19 08:09; Admin Dose 0.5 MG; Start 03/06/19 at 20:00 Sodium Chloride 1,000 ml @ 75 mls/hr [id number] IV Last administered on 03/09/19 08:33; Admin Dose 75 MLS/HR; Start 03/07/19 at 10:00 Vancomycin/Sodium Chloride 250 ml @ 125 mls/hr Q12H IVPB Last administered on 03/09/19at 08:30; Admin Dose 125 MLS/HR; Start 03/08/19 at 09:00 Miscellaneous Information (*Rx Drug Level Order Reminder*) VANCOMYCIN LEVEL TROUGH 2000 ONCE XX ; Start 03/09/19 at 20:00; Stop 03/09/19 at 20:01 OMAIRA LAY MD Mar 09, 2019 11:33
[2019-03-09 12:05] VITALS: BP 114/85; PULSE 60; RESP 16
[2019-03-09] MEDS ORDERED: BARIUM SULFATE 135 ML (E-Z HD) PO ONE (12:24)
[2019-03-09 16:12] VITALS: BP 136/81; PULSE 60; RESP 16
[2019-03-09] MEDS ORDERED: VANCOMYCIN LEVEL TROUGH*RX DRUG LEVEL ORDER REMINDER XX ONE (20:00)
[2019-03-09 20:08] VITALS: BP 98/55; PULSE 56; RESP 16
[2019-03-09] MEDS: SENNA TAB PO SCH (20:33)
[2019-03-09] MEDS: ATORVASTATIN 80 MG TAB PO SCH (20:34)
[2019-03-09] MEDS ORDERED: traZODone 50 MG TAB PO SCH (21:00)
[2019-03-10 00:12] VITALS: BP 111/75; PULSE 60; RESP 18
[2019-03-10 03:56] VITALS: BP 126/86; PULSE 62; RESP 20
[2019-03-10 08:11] VITALS: BP 133/79; PULSE 60; RESP 19
[2019-03-10] MEDS: GABAPENTIN 300 MG CAP PO SCH ×2 (08:36→13:00)
[2019-03-10] MEDS: BACLOFEN 10 MG TAB PO SCH ×2 (08:36→13:00)
[2019-03-10] MEDS: CITALOPRAM 20 MG TAB PO SCH (08:36)
[2019-03-10] MEDS: CEFEPIME 2GM/50 ML IVPB SCH (08:36)
[2019-03-10] MEDS: APIXABAN 5 MG TABLET PO SCH (08:36)
[2019-03-10] MEDS: ASPIRIN (EC) 81 MG TAB PO SCH (08:36)
[2019-03-10] MEDS: LOSARTAN 25 MG TAB PO SCH (08:37)
[2019-03-10] MEDS: AMLODIPINE 10 MG TAB PO SCH (08:37)
[2019-03-10] MEDS: ARFORMOTEROL TARTRATE 15MCG/2 ML AMP INH SCH (08:50)
[2019-03-10] MEDS: ALBUTEROL/IPRATROPIUM (NEB) 3 ML AMP INH SCH ×2 (08:50→15:29)
[2019-03-10] MEDS: BUDESONIDE (NEB) 0.5MG/2ML AMP INH SCH (08:50)
[2019-03-10] MEDS ORDERED: FAMOTIDINE 20 MG TAB PO SCH (09:00)
[2019-03-10] MEDS: VANCOMYCIN 750 MG (PMX) 250 ML IVPB SCH (09:18)
[2019-03-10 12:08] VITALS: BP 98/62; PULSE 70; RESP 18
--- NOTE | 2019-03-10 12:31 | DS ---
Date/Time of Note Date/Time of Note DATE: 03/10/19 TIME: 12:25 Discharge Summary Admission/Discharge Info Admit Date/Time Mar 05, 2019 at 23:01 Discharge Date/Time Patient Condition: Fair Procedures CXR Bilateral infiltrates CT brain IMPRESSION: 1. Slightly limited due to motion through the skull base. 2. Large old right MCA territor infarct with encephalomalacia. 3. No obvious acute intracranial hemorrhage or acute territorial infarct. 4. Age related atrophy and small vessel ischemic change. 5. Punctate cortical surface calcification suspicious for old neurocysticerc osis. 6. Cerebral arterial sclerosis. 7. Chronic-appearing opacification of the right sphenoid sinus. 8. If there is ongoing symptoms, consider further evaluation with MRI VIDEO SWALLOW EVAL Recommendations: 1. Continue dysphagia therapy 2. Continue moist puree wiht nectar thick liquids with strict aspriation precautions with 1to1 feed/supervision 3. Crushed medication with apple sauce followed by second dry swallow 4. HOB upright, single bites/sips at a slow rate, alternate solds and liquids, second dry swallow and NO STRAWS. Aspiration-Penetration score: 1-no aspiration/no penetration: NTL by teaspoon, cup, puree 3- thin liquids by cup with chin tuck 4-thin liquids by teaspoon with chin tuck-penetrates laryngx, contacts folds 7-below folds, visible tracheal resitue despite effort. Hx of Present Illness 73-year-old female admitted from retirement with shortness of breath Hospital Course Hospital course Admitted and evaluated for concern of sepsis. Treated for: severe sepsis with hypoxic respiratory failure requiring oxygen due to suspected healthcare associated pneumonia, strep versus staph unknown. Patient is stable and fit for discharge. She will finish antibiotics and oxygen at SNF. Recommend cxr 2 wks. There is concern of aspiration. Patient was seen by speech therapy and a video swallow was done. Please see results below. She needs advanced care planning reevaluated due to high risk for future pulmonary/sepsis events. Was seen by oncology. Comorbidities noted. At this time her performance status is poor and not sure if she would tolerate any further future therapy. Recommend palliative care/hospice. A/P 1. Severe sepsis, stable finish antibiotics via picc 2. Suspected hcap stable finish antibiotics. status post picc 3. Acute hypoxic respiratory failure cont O2 at SNF 4. 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 Reluctant for further therapy biopsy? Recommend palliative care 5. Failure to thrive, stable discharge to SNF 6. P A fib cont anticoagulation at SNF 7. Htn 8. COPD 9. Pacemaker status 10. H/o Rt MCA stroke 11. Ac encephalopathy due to 2 delirium 12. Nsvt, stable & asymptomatic continue beta-love. Electrolytes troponin unremarkable 13. Anemia stable unknown etiology appears asymptomatic 14. Dysphagia, continue modified dietary restrictions activity Home Meds Active Scripts Levofloxacin* (Levofloxacin*) 500 Mg Tablet, 500 MG PO DAILY, #7 TAB Prov:DAVID CHADWICK [employer] 01/10/19 Methylprednisolone* (Medrol* DOSE PACK) 4 Mg/Dose-Pack Tab.ds.pk, 4 MG PO . DIRECTED, #1 PACKET Prov:DAVID CHADWICK [employer] 01/10/19 Apixaban* (Eliquis*) 5 Mg Tablet, 2.5 MG PO BID, #60 TAB Prov:DAVID CHADWICK [employer] 01/10/19 Ipratropium-Albuterol (Ipratropium-Albuterol) 0.5-3 Mg/3 Ml Ampul.neb, 3 ML INH Q6HWA RESP THERAPY for 30 Days Prov:DAVID CHADWICK [employer] 01/10/19 Reported Medications Insulin Lispro (Humalog Kwikpen U-100) 100 Unit/1 Ml Insuln.pen, 0 SQ SLIDING SCALE, EA GIVE 5-10 MIN AC MEALS: IF BS 151-200=3 UNITS,201-250=6 UNITS, 251-300=8 UNITS,301-350=11 UNITS,351-399=13 UNITS-IF EQUAL OR GREATER THAN 400=15 UNITS: NOTIFY MD IF BELOW 60 OR ABOVE 400. 01/04/19 Acetaminophen* (Acetaminophen*) 325 Mg Tablet, 650 MG PO Q6H PRN for MILD PAIN LEVEL 1-3, #30 TAB AND FOR TEMP>101F 01/04/19 Salmeterol Xinaf-Fluticasone* (Advair HFA*) 115/21 Aerosol Inhaler, 2 INH IH BID PRN for COPD, #1 INHALER 01/04/19 Pantoprazole* (Pantoprazole*) 40 Mg Tablet.dr, 40 MG PO AC BREAKFAST, TAB 01/04/19 Gabapentin* (Gabapentin*) 300 Mg Capsule, 300 MG PO TID, #90 CAP 01/04/19 Baclofen* (Baclofen*) 10 Mg Tablet, 10 MG PO TID, TAB 01/04/19 Ondansetron Hcl* (Zofran*) 4 Mg Tab, 4 MG PO Q8H PRN for NAUSEA AND OR VOMITING, TAB 01/04/19 Ipratropium-Albuterol (Ipratropium-Albuterol) 0.5-3 Mg/3 Ml Ampul.neb, 3 ML INHALATION Q6 PRN for COPD, #30 VIAL OR Q4H NEEDED 01/04/19 Hydrocodone/Acetaminophen ([place] 5-325 Tablet) 1 Each Tablet, 1 EACH PO Q4H PRN for MODERATE PAIN LEVEL 4-6, TAB 01/04/19 Guaifenesin* (Robitussin*) 100 Mg/5 Ml Syrup, 10 ML PO Q4H PRN for COUGH, ML 01/04/19 Sennosides* (Senna Lax*) 8.6 Mg Tablet, 2 TAB PO QPM, TAB 01/04/19 Carvedilol* (Carvedilol*) 12.5 Mg Tablet, 12.5 MG PO BID, #60 TAB 01/04/19 Atorvastatin* (Atorvastatin*) 80 Mg Tablet, 80 MG PO QHS, #30 TAB 01/04/19 Risperidone* (Risperidone*) 0.25 Mg Tablet, 0.25 MG PO Q9PM, TAB 01/04/19 Trazodone Hcl* (Trazodone Hcl*) 50 Mg Tablet, 50 MG PO QHS, #30 TAB 01/04/19 Aspirin* (Aspirin* EC) 81 Mg Tablet.dr, 81 MG PO DAILY, TAB 01/04/19 Losartan Potassium* (Losartan Potassium*) 25 Mg Tablet, 25 MG PO DAILY, TAB HOLD FOR SBP LESS THAN 110 01/04/19 Amlodipine Besylate* (Amlodipine Besylate*) 10 Mg Tablet, 10 MG PO DAILY, #30 TAB 01/04/19 Citalopram Hydrobromide* (Citalopram Hydrobromide*) 20 Mg Tablet, 20 MG PO DAILY, #30 TAB 01/04/19 Primary Care Provider Jacky Rushing MD Time spent on discharge: > 30 minutes Pending Labs Laboratory Tests Test 8/5/19 20:14 03/10/19 05:17 Vancomycin Level Trough 13.7 ug/ml (10.0-20.0) White Blood Count 10.2 10^3/ul (4.8-10.8) Red Blood Count 3.64 10^6/ul (4.20-5.40) Hemoglobin 9.8 g/dl (12.0-16.0) Hematocrit 34.2 % (37.0-47.0) Mean Corpuscular Volume 94.0 fl (82.0-101.0) Mean Corpuscular Hemoglobin 26.9 pg (29.0-33.0) Mean Corpuscular 28.7 g/dl (32.0-37.0) Hemoglobin Concent Red Cell Distribution Width 16.4 % (11.5-14.5) Platelet Count 155 10^3/UL (140-415) Mean Platelet Volume 11.3 fl (7.4-10.4) Immature Granulocytes % 0.700 % (0.001-0.429) Neutrophils % 83.5 % (39.0-77.0) Lymphocytes % 6.3 % (15.0-51.0) Monocytes % 9.2 % (0.0-11.0) Eosinophils % 0.2 % (0.0-7.0) Basophils % 0.1 % (0.0-2.0) Nucleated Red Blood Cells % 0.0 /100WBC (0.0-0.0) Immature Granulocytes # 0.070 10^3/ul (0.0-0.031) Neutrophils # 8.5 10^3/ul (1.6-7.5) Lymphocytes # 0.6 10^3/ul (0.8-2.9) Monocytes # 0.9 10^3/ul (0.3-0.9) Eosinophils # 0.0 10^3/ul (0.0-0.5) Basophils # 0.0 10^3/ul (0.0-0.1) Nucleated Red Blood Cells # 0.0 10^3/ul (0.0-0.0) Sodium Level 140 mmol/L (135-144) Potassium Level 4.8 mmol/L (3.5-5.1) Chloride Level 106 mmol/L (97-110) Carbon Dioxide Level 32 mmol/L (21-31) Anion Gap 2 (5-13) Blood Urea Nitrogen 23 mg/dl (7-20) Creatinine 0.72 mg/dl (0.44-1.00) Est Glomerular Filtrat mL/min (>60) Rate mL/min Glucose Level 94 mg/dl (70-220) Calcium Level 9.2 mg/dl (8.4-10.2) Phosphorus Level 2.7 mg/dl (2.5-4.9) Magnesium Level 2.2 mg/dl (1.7-2.5) Troponin I 0.045 ng/ml (0.000-0.120) OMAIRA LAY MD Mar 10, 2019 12:31
--- NOTE | 2019-03-10 12:33 | PDOCDIS ---
Discharge Instructions CONDITION [id number] Patient Condition: [id number] Stable HOME CARE INSTRUCTIONS: [id number] Diet Instructions: [id number] Dysphagia altered FOLLOW UP/APPOINTMENTS Follow-up Plan appt PCP 1wk. Oncology or Palliative/ Hospice referral. OMAIRA LAY MD Mar 10, 2019 12:33
[2019-03-12] MEDS ORDERED: RISPERIDONE 0.25 MG TAB PO SCH (09:00)
== END 2019-03-10 15:56 | DRG 871 ==
LOC: E/R 20:40 → 6WM 23:01 → CANRESERV 23:39 → EDBEDREQSVC 03-06 02:25
PROVIDERS: ADMIT Internal Medicine; ATTEND Hospitalist
PROC: 02HV33Z Insertion of Infusion Device into Superior Vena Cava, Percutaneous Approach (ICD-10-PCS; principal; 2019-03-06)
PROC: B548ZZA Ultrasonography of Superior Vena Cava, Guidance (ICD-10-PCS; 2019-03-06)
DX: A41.9 Sepsis, unspecified organism (principal); J18.9 Pneumonia, unspecified organism; J96.01 Acute respiratory failure with hypoxia; G92 Toxic encephalopathy; C34.90 Malignant neoplasm of unspecified part of unspecified bronchus or lung; J44.0 Chronic obstructive pulmonary disease with (acute) lower respiratory infection; I47.2 Ventricular tachycardia; I48.91 Unspecified atrial fibrillation; I10 Essential (primary) hypertension; Z95.0 Presence of cardiac pacemaker; R65.20 Severe sepsis without septic shock; R62.7 Adult failure to thrive; Z68.25 Body mass index [BMI] 25.0-25.9, adult; I48.0 Paroxysmal atrial fibrillation; Z86.73 Personal history of transient ischemic attack (TIA), and cerebral infarction without residual deficits; D64.9 Anemia, unspecified; R13.10 Dysphagia, unspecified
CPT/HCPCS: 36415; 36569; 36600; 70450; 71045; 74230; 76937; 80048; 80053; 80202; 82803; 83735; 84100; 84484; 85025; 92526; 92610; 92611; 93005; 94640; 94644; 94664; 97116; 97162; 97530; J0360; J0692; J1630; J2060; J2405; J2920; J3370